=== PATIENT | female | born 1960 | race Caucasian/White ===

== ENCOUNTER → 2016-11-22 | Day surgery (SDC) | payer BC ==
[2016-11-16 08:55] VITALS: Ht 167.6 cm; Wt 121.4 kg
[~2016-11-22] VITALS: Ht 167.6 cm; Wt 121.4 kg
[~2016-11-22] MED LIST: BIOT1CAP8 PO; CETI10TA84 PO; CLB/200 PO; LEVO50TA6 PO; LIDOCAINE HCL 2% 2 ML VIAL (20MG/ML) ONE; LOSA50TA6 PO; MIDAZOLAM HCL 1 MG/ML 2ML VIAL ONE; MONT1TAB3 PO; ONDANSETRON INJ 2 MG/ML 2 ML VIAL ONE; OXYC1TAB3 PO; PROPOFOL IV EMULSION 10 MG/ML 20 ML VIAL IV ONE; RABE20TA5 PO; ROPI0.25 PO; SALI1SPR3 NAE; SIMV10TA2 PO; SPIR25TA PO
--- NOTE | 2016-11-22 11:28 | Endo History and Physical ---
History & Physical Date of Service: Nov 22, 2016. Chief Complaint: reflux Referring Physician: Dr. Isak Bruce History of Present Illness 56 yo CF who presents for EGD secondary to GERD. Past Medical History Sleep Apnea Past Surgical History Hx Cardiac Surgery: No Hx Internal Defibrillator: No Hx Pacemaker: No Hx Abdominal Surgery: Yes (APPY) Hx of Implantable Prosthesis: No Hx Post-Op Nausea and Vomiting: No Hx Cancer Surgery: Yes (ABDOMINAL EXPLOR SURGERY (LYMPOMA)) Hx Thoracic Surgery: No Hx Orthopedic: No Hx Urinary Tract Surgery: No Family History None Social History Smoking Status: Never Smoker Hx Substance Use: No Hx Alcohol Use: No Allergies Coded Allergies: Statins (Verified Adverse Reaction, Unknown, muscle pains, 11/16/16) Current Medications Reported Home Medications Medications Dose Route/Sig Max Daily Dose Days Date Category Saline Nasal [place] (Saline) 0.65 % Spr 1 Dose ТАТЬЯНА DIRECTED PRN 11/16/16 Reported Biotin 1 Mg Cap 1 Dose PO QAM 11/16/16 Reported Roxicodone Ir (Oxycodone HCl) 5 Mg Tab 5 Mg PO Q6H PRN 11/16/16 Reported Zocor (Simvastatin) 10 Mg Tab 10 Mg PO QPM 11/16/16 Reported Requip (Ropinirole HCl) 0.25 Mg Tab 2-3 Tab PO HS 11/16/16 Reported Aciphex (Rabeprazole Sodium) 20 Mg Tab 20 Mg PO BID 11/16/16 Reported Levothyroxine Sodium 50 Mcg Tab 1 Tab PO QAM 90 11/16/16 Reported Cozaar (Losartan Potassium) 50 Mg Tab 50 Mg PO QAM 11/16/16 Reported Singulair (Montelukast Sodium) 10 Mg Tab 10 Mg PO QAM 11/16/16 Reported Zyrtec (Cetirizine HCl) 10 Mg Tab 10 Mg PO QAM 11/16/16 Reported CeleBREX (Celecoxib) 200 Mg Cap 200 Mg PO QAM 11/16/16 Reported Aldactone (Spironolactone) 25 Mg Tab 25 Mg PO QAM 11/16/16 Reported Vital Signs Weight (Kilograms): 121.36 Height (Feet): 5 Height (Inches): 6 Date Time Temp Pulse Resp B/P Pulse Ox O2 Delivery O2 Flow Rate FiO2 11/22/16 10:58 37.1 99 18 151/91 94 Room Air Physical Exam General Appearance: WD/WN, no apparent distress Respiratory/Chest: Auscultation: breath sounds normal Cardiovascular: Heart Auscultation: RRR Abdomen: Bowel Sounds: normal Inspection & Palpation: soft, non-distended, no tenderness, guarding & rebound Assessment and Plan Assessment: 56 yo CF who presents for EGD secondary to GERD. Plan: Proceed with EGD.
--- NOTE | 2016-11-22 12:06 | GI REPORT ---
Procedure Date: 11/22/2016 11:33 AM Procedure: Upper GI endoscopy Indications: Gastro-esophageal reflux disease Medicines: Monitored Anesthesia Care Complications: No immediate complications. Estimated Blood Loss: Estimated blood loss: none. Procedure: Pre-Anesthesia Assessment: - Prior to the procedure, a History and Physical was performed, and patient medications and allergies were reviewed. The patient's tolerance of previous anesthesia was also reviewed. The risks and benefits of the procedure and the sedation options and risks were discussed with the patient. All questions were answered, and informed consent was obtained. Prior Anticoagulants: The patient has taken no previous anticoagulant or antiplatelet agents. ASA Grade Assessment: III - A patient with severe systemic disease. After reviewing the risks and benefits, the patient was deemed in satisfactory condition to undergo the procedure. After obtaining informed consent, the endoscope was passed under direct vision. Throughout the procedure, the patient's blood pressure, pulse, and oxygen saturations were monitored continuously. The scope was introduced through the mouth, and advanced to the second part of duodenum. The upper GI endoscopy was accomplished without difficulty. The patient tolerated the procedure well. Findings: The esophagus was normal. Localized mild inflammation characterized by erythema was found in the gastric antrum. Biopsies were taken with a cold forceps for histology. The examined duodenum was normal. Impression: - Normal esophagus. - Gastritis. Biopsied. - Normal examined duodenum. Recommendation: - Resume previous diet. - Continue present medications. - Await pathology results. - Return to primary care physician as previously scheduled. Jt Stewart DO 11/22/2016 12:05:07 PM This report has been signed electronically. Note Initiated On: 11/22/2016 11:33 AM
--- NOTE | 2016-11-22 12:07 | Discharge Instructions ---
Endoscopy Patient Instructions Date / Procedure(s) Performed Nov 22, 2016. EGD Allergy Information Coded Allergies: Statins (Verified Adverse Reaction, Unknown, muscle pains, 11/22/16) Discharge Date / Findings Nov 22, 2016. Gastritis s/p biopsies Medication Instructions OK to resume all medications today as prescribed Reported Home Medications Medications Dose Route/Sig Max Daily Dose Days Date Category Saline Nasal [place] (Saline) 0.65 % Spr 1 Dose ТАТЬЯНА DIRECTED PRN 11/16/16 Reported Biotin 1 Mg Cap 1 Dose PO QAM 11/16/16 Reported Roxicodone Ir (Oxycodone HCl) 5 Mg Tab 5 Mg PO Q6H PRN 11/16/16 Reported Zocor (Simvastatin) 10 Mg Tab 10 Mg PO QPM 11/16/16 Reported Requip (Ropinirole HCl) 0.25 Mg Tab 2-3 Tab PO HS 11/16/16 Reported Aciphex (Rabeprazole Sodium) 20 Mg Tab 20 Mg PO BID 11/16/16 Reported Levothyroxine Sodium 50 Mcg Tab 1 Tab PO QAM 90 11/16/16 Reported Cozaar (Losartan Potassium) 50 Mg Tab 50 Mg PO QAM 11/16/16 Reported Singulair (Montelukast Sodium) 10 Mg Tab 10 Mg PO QAM 11/16/16 Reported Zyrtec (Cetirizine HCl) 10 Mg Tab 10 Mg PO QAM 11/16/16 Reported CeleBREX (Celecoxib) 200 Mg Cap 200 Mg PO QAM 11/16/16 Reported Aldactone (Spironolactone) 25 Mg Tab 25 Mg PO QAM 11/16/16 Reported Provider Instructions Activity Restrictions - No exercising or heavy lifting for 24 hours. - Do not drink alcohol the day of the procedure. - Do not drive a car or operate machinery until the day after the procedure. - Do not make any important decisions or sign important papers in 24 hours after the procedure. Following Day: - Return to full activity which may include returning to work/school. Diet Start your diet with liquids and light foods (jello, soup, juice, toast). Then eat your usual diet if not nauseated. Treatment For Common After Affects For mild abdominal pain, bloating, or excessive gas: - Rest - Eat lightly - Lie on right side Follow-Up Information Follow-up with Dr. Isak Bruce as scheduled Anesthesia Information What You Should Know You have had a procedure that required some medicine to reduce anxiety and discomfort. This treatment is called moderate sedation. After receiving the treatment, you may be sleepy, but you will be able to breathe on your own. The effects of the treatment may last for several hours. Follow these instructions along with Activity/Diet recommendations noted above: * Do NOT do anything where dizziness or clumsiness would be dangerous. * Rest quietly at home today, then you can be up and about tomorrow. * Have a responsible person stay with you the rest of today. * You may have had an I.V. today. If so, you may take the dressing off later today. Recommendations Call your doctor if: * Trouble breathing * Continuous vomiting for more than 24 hours * Temperature above 101 degrees * Severe abdominal pain or bloating * Pain not relieved by pain medicine ordered * There is increased drainage or redness from any incision * A large amount of rectal bleeding greater than 2-3 tablespoons. (If you had a polyp/s removed or have hemorrhoids, a small amount of blood - from the rectum is to be expected.) * You have any unanswered questions or concerns. IN THE EVENT OF A SERIOUS EMERGENCY, GO TO THE NEAREST EMERGENCY ROOM Your discharge instructions were prepared by provider Jt Stewart. Patient Instructions Signature Page Annette Carrasco Patient (or Guardian) Signature/Date: I have read and understand the instructions given to me by my caregivers. Caregiver/RN/Doctor Signature/Date: The above-named patient and/or guardian has received patient instructions on this date. + Original Patient Signature Page (only) stays with chart. Please make copy for patient.
[2016-11-22 12:39] VITALS: BP 128/72; PULSE 87; O2SAT 97
--- NOTE | 2016-11-22 13:31 | Anesthesiology Progress Note ---
Anesthesia Post Op Note Date & Time Nov 22, 2016 at 13:31 Vital Signs Pain Intensity: 0 Vital Signs Past 12 Hours Date Time Temp Pulse Resp B/P Pulse Ox O2 Delivery O2 Flow Rate FiO2 11/22/16 12:39 87 20 128/72 97 Room Air 11/22/16 12:20 86 20 122/70 95 Room Air 11/22/16 12:04 85 20 120/72 94 Room Air 11/22/16 10:58 37.1 99 18 151/91 94 Room Air Notes Mental Status: alert / awake / arousable, participated in evaluation Pt Amnestic to Procedure: Yes Nausea / Vomiting: adequately controlled Pain: adequately controlled Airway Patency, RR, SpO2: stable & adequate BP & HR: stable & adequate Hydration State: stable & adequate Anesthetic Complications: no major complications apparent
== END | disposition home or self-care (01) ==
LOC: C.GI 10:35
PROVIDERS: ATTEND Internal Medicine
DX: K29.70 Gastritis, unspecified, without bleeding (principal); K21.9 Gastro-esophageal reflux disease without esophagitis; Z98.890 Other specified postprocedural states; G47.30 Sleep apnea, unspecified; Z88.8 Allergy status to other drugs, medicaments and biological substances

== ENCOUNTER → 2016-12-18 | Outpatient (CLI) | payer BC ==
[~2016-12-18] MED LIST changes: -LIDOCAINE HCL 2% 2 ML VIAL (20MG/ML) ONE; -MIDAZOLAM HCL 1 MG/ML 2ML VIAL ONE; -ONDANSETRON INJ 2 MG/ML 2 ML VIAL ONE; -PROPOFOL IV EMULSION 10 MG/ML 20 ML VIAL IV ONE
[2016-12-18 09:50] LABS: BLOOD UREA NITROGEN 21 mg/dl (7-18); CHOLESTEROL 164 mg/dl (0-200); CREATININE 0.88 mg/dl (0.60-1.20)
[2016-12-18 09:59] LABS: ESTIMATED AVERAGE GLUCOSE 143 mg/dl; HA1C FLAG Normal (Normal)
[2016-12-18 10:00] LABS: CHOLESTEROL/HDL RATIO 3.2; HDL CHOLESTEROL 52 mg/dl; LDL CHOLESTEROL CALCULATED 72 mg/dl; TRIGLYCERIDES 198 mg/dl (0-150); VERY LOW DENSITY LIPOPROT CALC 40 mg/dl
== END | disposition home or self-care (01) ==
LOC: C.LAB1850 07:24
PROVIDERS: ATTEND Internal Medicine
DX: E11.9 Type 2 diabetes mellitus without complications (principal); E03.9 Hypothyroidism, unspecified; E78.00 Pure hypercholesterolemia, unspecified

== ENCOUNTER → 2016-12-20 | Outpatient (CLI) | payer BC ==
[~2016-12-20] MED LIST changes: +OPTIRAY 320 IV PRN
--- NOTE | 2016-12-20 09:08 | DIAGNOSTIC IMAGING REPORT ---
SOFT TISSUE NECK CT WITH INTRAVENOUS CONTRAST HISTORY: Choking sensation. R68.89 Throat symptom TECHNIQUE: Multiaxial CT images of the neck were performed following the use of intravenous contrast. COMPARISON STUDY: None. FINDINGS: The visualized brain parenchyma and orbits are unremarkable. The pterygopalatine fossa are maintained. Prevertebral soft tissues and the epiglottis are normal in thickness. There are few punctate calcifications within the bilateral palatine tonsils. The major mucosal airway surfaces are intact. The trachea is patent. No pneumothorax. The visualized lungs are clear. No suspicious lytic or blastic osseous lesions. The paranasal sinuses and mastoid air cells are clear. The major cervical vessels are patent. The thyroid gland enhances normally. No cervical lymphadenopathy. The major salivary glands enhance symmetrically. Moderate to severe disc space narrowing from C4 through C7. IMPRESSION: 1. The airway is patent. No masses or lymphadenopathy within the neck. 2. Degenerative changes within the cervical spine. Electronically signed by: Hammad Disla M.D. 12/20/2016 9:07 AM Dictated Date/Time: 12/20/2016 9:01 AM
== END | disposition home or self-care (01) ==
LOC: C.CTS 08:18
PROVIDERS: ATTEND Internal Medicine
DX: R68.89 Other general symptoms and signs (principal)

== ENCOUNTER → 2017-03-02 | Outpatient (CLI) | payer BC ==
[~2017-03-02] MED LIST changes: +ASTN; +ATRIN INH; +CHLOTAB3 PO; +IBUP-103 PO; +LEVO75TA5 PO; +METF500T PO; +NAPR1TAB9 PO; -OPTIRAY 320 IV PRN; +PSEU60TA80 PO; +SPIR1TAB72 PO; +SUMA25TA12 PO; +TYLOTC500 PO; +VERAMYST INTNAS
== END | disposition home or self-care (01) ==
LOC: C.PAPS 12:31
PROVIDERS: ATTEND Obstetrics & Gynecology
DX: Z01.419 Encounter for gynecological examination (general) (routine) without abnormal findings (principal); Z78.0 Asymptomatic menopausal state

== ENCOUNTER → 2017-04-25 | Outpatient (CLI) | payer BC ==
--- NOTE | 2017-04-25 14:47 | MAMMOGRAPHY REPORT ---
BILATERAL DIGITAL SCREENING MAMMOGRAM TOMOSYNTHESIS WITH CAD: 04/25/2017 CLINICAL HISTORY: Routine screening. Patient has no complaints. TECHNIQUE: Breast tomosynthesis in addition to standard 2D mammography was performed. Current study was also evaluated with a Computer Aided Detection (CAD) system. COMPARISON: Comparison is made to exams dated: 03/28/2016 mammogram, 03/26/2015 mammogram, 09/25/2014 ultrasound, 09/25/2014 mammogram, 09/08/2014 mammogram, and 08/28/2013 mammogram - [facility] BREAST COMPOSITION: The tissue of both breasts is almost entirely fatty. FINDINGS: No suspicious masses, calcifications, or areas of architectural distortion are noted in ei ther breast. There has been no significant interval change compared to prior exams. IMPRESSION: ACR BI-RADS CATEGORY 1: NEGATIVE There is no mammographic evidence of malignancy. A 1 year screening mammogram is recommended. The pa tient will receive written notification of the results. Approximately 10% of breast cancers are not detected with mammography. A negative mammographic report should not delay biopsy if a clinically suggestive mass is present. Maritza Stauffer M.D. /:04/25/2017 07:54:51 Design Consultant: Soco MARKS(Tyrese)(M), [facility] letter sent: Normal 1/2 BI-RADS Code: ACR BI-RADS Category 1: Negative
== END | disposition home or self-care (01) ==
LOC: C.MAMM 07:13
PROVIDERS: ATTEND Obstetrics & Gynecology
DX: Z12.31 Encounter for screening mammogram for malignant neoplasm of breast (principal)

== ENCOUNTER → 2017-04-26 | Day surgery (SDC) | payer BC ==
[2017-04-16 11:55] VITALS: Ht 167.6 cm; Wt 121.4 kg
[~2017-04-26] VITALS: Ht 167.6 cm; Wt 121.4 kg
[~2017-04-26] MED LIST changes: +FENTANYL CITRATE INJ 50 MCG/1 ML 2 ML VIAL ONE; +LIDOCAINE HCL 2% 2 ML VIAL (20MG/ML) ONE; +PROPOFOL IV EMULSION 10 MG/ML 20 ML VIAL IV ONE
--- NOTE | 2017-04-26 12:04 | Endo History and Physical ---
History & Physical Date of Service: Apr 26, 2017. Chief Complaint: screening Referring Physician: Dr. Isak Bruce History of Present Illness 56 yo CF who presents for screening colonoscopy. Past Medical History Sleep Apnea Past Surgical History Hx Cardiac Surgery: No Hx Internal Defibrillator: No Hx Pacemaker: No Hx Abdominal Surgery: Yes (APPY) Hx of Implantable Prosthesis: No Hx Post-Op Nausea and Vomiting: No Hx Cancer Surgery: Yes (ABDOMINAL EXPLORATORY (LYMPHOMA)) Hx Thoracic Surgery: No Hx Orthopedic: No Hx Urinary Tract Surgery: No Family History None Social History Smoking Status: Never Smoker Hx Substance Use: No Hx Alcohol Use: No Allergies Coded Allergies: Statins (Verified Adverse Reaction, Unknown, muscle pains, 04/16/17) Current Medications Reported Home Medications Medications Dose Route/Sig Max Daily Dose Days Date Category Saline Nasal [place] (Saline) 0.65 % Spr 1 Dose ТАТЬЯНА DIRECTED PRN 11/16/16 Reported Biotin 1 Mg Cap 1 Dose PO QAM 11/16/16 Reported Roxicodone Ir (Oxycodone HCl) 5 Mg Tab 5 Mg PO Q6H PRN 11/16/16 Reported Zocor (Simvastatin) 10 Mg Tab 10 Mg PO QPM 11/16/16 Reported Requip (Ropinirole HCl) 0.25 Mg Tab 2-3 Tab PO HS 11/16/16 Reported Aciphex (Rabeprazole Sodium) 20 Mg Tab 20 Mg PO BID 11/16/16 Reported Levothyroxine Sodium 50 Mcg Tab 1 Tab PO QAM 90 11/16/16 Reported Cozaar (Losartan Potassium) 50 Mg Tab 50 Mg PO QAM 11/16/16 Reported Singulair (Montelukast Sodium) 10 Mg Tab 10 Mg PO QAM 11/16/16 Reported Zyrtec (Cetirizine HCl) 10 Mg Tab 10 Mg PO QAM 11/16/16 Reported CeleBREX (Celecoxib) 200 Mg Cap 200 Mg PO QAM 11/16/16 Reported Aldactone (Spironolactone) 25 Mg Tab 25 Mg PO QAM 11/16/16 Reported Vital Signs Weight (Kilograms): 121.36 Height (Feet): 5 Height (Inches): 6 Date Time Temp Pulse Resp B/P (MAP) Pulse Ox O2 Delivery O2 Flow Rate FiO2 04/26/17 11:54 37.5 99 20 138/92 (107) 95 Room Air Physical Exam General Appearance: WD/WN, no apparent distress Respiratory/Chest: Auscultation: breath sounds normal Cardiovascular: Heart Auscultation: RRR Abdomen: Bowel Sounds: normal Inspection & Palpation: soft, non-distended, no tenderness, guarding & rebound Assessment and Plan Assessment: 56 yo CF who presents for screening colonoscopy. Plan: Proceed with colonoscopy.
--- NOTE | 2017-04-26 13:03 | GI REPORT ---
Procedure Date: 04/26/2017 12:28 PM Procedure: Colonoscopy Indications: Screening for colorectal malignant neoplasm Medicines: Monitored Anesthesia Care Complications: No immediate complications. Estimated Blood Loss: Estimated blood loss: none. Procedure: Pre-Anesthesia Assessment: - Prior to the procedure, a History and Physical was performed, and patient medications and allergies were reviewed. The patient's tolerance of previous anesthesia was also reviewed. The risks and benefits of the procedure and the sedation options and risks were discussed with the patient. All questions were answered, and informed consent was obtained. Prior Anticoagulants: The patient has taken no previous anticoagulant or antiplatelet agents. ASA Grade Assessment: III - A patient with severe systemic disease. After reviewing the risks and benefits, the patient was deemed in satisfactory condition to undergo the procedure. After I obtained informed consent, the scope was passed under direct vision. Throughout the procedure, the patient's blood pressure, pulse, and oxygen saturations were monitored continuously. The Scope was introduced through the anus and advanced to the terminal ileum. The colonoscopy was performed without difficulty. The patient tolerated the procedure well. The quality of the bowel preparation was good. The terminal ileum, ileocecal valve, appendiceal orifice, and rectum were photographed. Findings: Multiple small-mouthed diverticula were found in the sigmoid colon. Non-bleeding internal hemorrhoids were found during retroflexion. The hemorrhoids were small. Impression: - Diverticulosis in the sigmoid colon. - Non-bleeding internal hemorrhoids. - No specimens collected. Recommendation: - Resume previous diet. - Continue present medications. - Repeat colonoscopy in 10 years for surveillance. - Return to primary care physician as previously scheduled. Jt Stewart, 04/26/2017 1:02:22 PM This report has been signed electronically. Note Initiated On: 04/26/2017 12:28 PM I attest to the content of the Intraoperative Record and orders documented therein, exceptions below
[2017-04-26 13:20] VITALS: BP 132/83; PULSE 89; O2SAT 95
--- NOTE | 2017-04-26 13:49 | Discharge Instructions ---
Endoscopy Patient Instructions Date / Procedure(s) Performed Apr 26, 2017. Colonoscopy Allergy Information Coded Allergies: Statins (Verified Adverse Reaction, Unknown, muscle pains, 04/16/17) Discharge Date / Findings Apr 26, 2017. Diverticulosis Internal hemorrhoids Diverticulosis Internal hemorrhoids Medication Instructions OK to resume all medications today as prescribed Reported Home Medications Medications Dose Route/Sig Max Daily Dose Days Date Category Saline Nasal [place] (Saline) 0.65 % Spr 1 Dose ТАТЬЯНА DIRECTED PRN 11/16/16 Reported Biotin 1 Mg Cap 1 Dose PO QAM 11/16/16 Reported Roxicodone Ir (Oxycodone HCl) 5 Mg Tab 5 Mg PO Q6H PRN 11/16/16 Reported Zocor (Simvastatin) 10 Mg Tab 10 Mg PO QPM 11/16/16 Reported Requip (Ropinirole HCl) 0.25 Mg Tab 2-3 Tab PO HS 11/16/16 Reported Aciphex (Rabeprazole Sodium) 20 Mg Tab 20 Mg PO BID 11/16/16 Reported Levothyroxine Sodium 50 Mcg Tab 1 Tab PO QAM 90 11/16/16 Reported Cozaar (Losartan Potassium) 50 Mg Tab 50 Mg PO QAM 11/16/16 Reported Singulair (Montelukast Sodium) 10 Mg Tab 10 Mg PO QAM 11/16/16 Reported Zyrtec (Cetirizine HCl) 10 Mg Tab 10 Mg PO QAM 11/16/16 Reported CeleBREX (Celecoxib) 200 Mg Cap 200 Mg PO QAM 11/16/16 Reported Aldactone (Spironolactone) 25 Mg Tab 25 Mg PO QAM 11/16/16 Reported Provider Instructions Activity Restrictions - No exercising or heavy lifting for 24 hours. - Do not drink alcohol the day of the procedure. - Do not drive a car or operate machinery until the day after the procedure. - Do not make any important decisions or sign important papers in 24 hours after the procedure. Following Day: - Return to full activity which may include returning to work/school. Diet Start your diet with liquids and light foods (jello, soup, juice, toast). Then eat your usual diet if not nauseated. Treatment For Common After Affects For mild abdominal pain, bloating, or excessive gas: - Rest - Eat lightly - Lie on right side Follow-Up Information Follow-up with Dr. Isak Bruce as scheduled Anesthesia Information What You Should Know You have had a procedure that required some medicine to reduce anxiety and discomfort. This treatment is called moderate sedation. After receiving the treatment, you may be sleepy, but you will be able to breathe on your own. The effects of the treatment may last for several hours. Follow these instructions along with Activity/Diet recommendations noted above: * Do NOT do anything where dizziness or clumsiness would be dangerous. * Rest quietly at home today, then you can be up and about tomorrow. * Have a responsible person stay with you the rest of today. * You may have had an I.V. today. If so, you may take the dressing off later today. Recommendations Call your doctor if: * Trouble breathing * Continuous vomiting for more than 24 hours * Temperature above 101 degrees * Severe abdominal pain or bloating * Pain not relieved by pain medicine ordered * There is increased drainage or redness from any incision * A large amount of rectal bleeding greater than 2-3 tablespoons. (If you had a polyp/s removed or have hemorrhoids, a small amount of blood - from the rectum is to be expected.) * You have any unanswered questions or concerns. IN THE EVENT OF A SERIOUS EMERGENCY, GO TO THE NEAREST EMERGENCY ROOM Your discharge instructions were prepared by provider Jt Stewart. Patient Instructions Signature Page Annette Carrasco Patient (or Guardian) Signature/Date: I have read and understand the instructions given to me by my caregivers. Caregiver/RN/Doctor Signature/Date: The above-named patient and/or guardian has received patient instructions on this date. + Original Patient Signature Page (only) stays with chart. Please make copy for patient.
--- NOTE | 2017-04-26 14:35 | Anesthesiology Progress Note ---
Anesthesia Post Op Note Date & Time Apr 26, 2017 at 14:35 Vital Signs Pain Intensity: 0 Vital Signs Past 12 Hours Date Time Temp Pulse Resp B/P (MAP) Pulse Ox O2 Delivery O2 Flow Rate FiO2 04/26/17 13:20 89 16 132/83 (99) 95 Room Air 04/26/17 13:04 89 16 127/75 (92) 95 Room Air 04/26/17 12:48 89 16 127/75 (92) 96 Room Air 04/26/17 11:54 37.5 99 20 138/92 (107) 95 Room Air Notes Mental Status: alert / awake / arousable, participated in evaluation Pt Amnestic to Procedure: Yes Nausea / Vomiting: adequately controlled Pain: adequately controlled Airway Patency, RR, SpO2: stable & adequate BP & HR: stable & adequate Hydration State: stable & adequate Anesthetic Complications: no major complications apparent
== END | disposition home or self-care (01) ==
LOC: C.GI 11:27
PROVIDERS: ATTEND Internal Medicine
DX: Z12.11 Encounter for screening for malignant neoplasm of colon (principal); K57.30 Diverticulosis of large intestine without perforation or abscess without bleeding; K64.8 Other hemorrhoids; G47.30 Sleep apnea, unspecified; Z79.899 Other long term (current) drug therapy

== ENCOUNTER → 2017-05-14 | Outpatient (CLI) | payer BC ==
[~2017-05-14] MED LIST changes: -ASTN; -ATRIN INH; -CHLOTAB3 PO; -FENTANYL CITRATE INJ 50 MCG/1 ML 2 ML VIAL ONE; -IBUP-103 PO; -LEVO75TA5 PO; -LIDOCAINE HCL 2% 2 ML VIAL (20MG/ML) ONE; -METF500T PO; -NAPR1TAB9 PO; -PROPOFOL IV EMULSION 10 MG/ML 20 ML VIAL IV ONE; -PSEU60TA80 PO; -SPIR1TAB72 PO; -SUMA25TA12 PO; -TYLOTC500 PO; -VERAMYST INTNAS
[2017-05-14 09:47] LABS: BASO % 0.2 %; BASO ABS # 0.02 K/uL (0-0.2); COMPLETE YES; HEMATOCRIT 40.2 % (37-47); IG% 0.3 %; LYMPH % 16.3 %; MEAN CORPUSCULAR HEMOGLOBIN 29.5 pg (25-34); MEAN CORPUSCULAR HGB CONC 33.6 g/dl (32-36); MONO % 6.9 %; NEUT % 74.3 %; PLATELET COUNT 273 K/uL (130-400); RED BLOOD COUNT 4.57 M/uL (4.2-5.4); WHITE BLOOD COUNT 9.84 K/uL (4.8-10.8)
[2017-05-14 09:49] LABS: URINE APPEARANCE CLEAR (CLEAR); URINE BILIRUBIN NEG (NEG); URINE COLOR YELLOW; URINE EPITHELIAL CELL AUTO >30 /lpf (0-5); URINE NITRITE NEG (NEG); URINE SPECIFIC GRAVITY 1.015 (1.000-1.030); UROBILINOGEN NEG (NEG); ZZUR CULT IF INDIC CLEAN CATCH YES
[2017-05-14 09:55] LABS: ALT/SGPT 39 U/L (12-78); AST/SGOT 28 U/L (15-37); BLOOD UREA NITROGEN 17 mg/dl (7-18); BUN/CREATININE RATIO 17.2 (10-20); CALCIUM 9.4 mg/dl (8.5-10.1); CARBON DIOXIDE 32 mmol/L (21-32); CHLORIDE 101 mmol/L (98-107); CREATININE 0.97 mg/dl (0.60-1.20); GLUCOSE 146 mg/dl (70-99); POTASSIUM 3.3 mmol/L (3.5-5.1); SODIUM 137 mmol/L (136-145)
[2017-05-14 10:00] LABS: ESTIMATED AVERAGE GLUCOSE 157 mg/dl; HA1C FLAG Normal (Normal)
[2017-05-14 10:03] LABS: MANUAL MICROSCOPIC REQUIRED? NO; REVIEW REQ? NO
[2017-05-14 10:06] LABS: ALB/GLOB RATIO 1.2 (0.9-2); ALKALINE PHOSPHATASE 70 U/L (45-117)
[2017-05-14 10:32] LABS: RATIO 8.9 mcg/mg (0-30.0)
== END | disposition home or self-care (01) ==
LOC: C.LAB1850 08:01
PROVIDERS: ATTEND Internal Medicine
DX: E11.9 Type 2 diabetes mellitus without complications (principal); E03.9 Hypothyroidism, unspecified; E78.00 Pure hypercholesterolemia, unspecified; C85.90 Non-Hodgkin lymphoma, unspecified, unspecified site; I10 Essential (primary) hypertension

== ENCOUNTER → 2017-06-08 | Outpatient (CLI) | payer BC ==
[~2017-06-08] MED LIST changes: +OPTIRAY 320 IV PRN
--- NOTE | 2017-06-08 08:56 | DIAGNOSTIC IMAGING REPORT ---
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 TECHNIQUE: Multidetector CT imaging of the chest was performed after the administration of intravenous contrast. IV contrast: 93 mL of Optiray 320. A dose lowering technique was used consistent with the principles of ALARA (as low as reasonably achievable). COMPARISON: 12/17/2012. CT DOSE (mGy.cm): The estimated cumulative dose is 3122.89 mGy.cm. FINDINGS: Evaluation limited due to exclusion of the lung bases. Please see separate dictated CT of the abdomen and pelvis for findings at the lung bases. [id number] Programmer topogram: Unremarkable. On soft tissue windows, normal thyroid and thoracic inlet. No axillary, supraclavicular, hilar, or mediastinal lymphadenopathy. Normal aorta. Normal heart size. Minimal aortic valve calcification. No pericardial or pleural effusion. Suggestion of hepatic steatosis. On lung windows, no focal infiltrate or nodule. Airways patent. On bone windows, degenerative changes of the spine. IMPRESSION: 1. No evidence of intrathoracic lymphadenopathy. No intrathoracic pathology. Electronically signed by: Karthikeyan Cabrera M.D. 06/08/2017 8:54 AM Dictated Date/Time: 06/08/2017 8:50 AM
--- NOTE | 2017-06-08 09:01 | DIAGNOSTIC IMAGING REPORT ---
CT SCAN OF THE ABDOMEN AND PELVIS WITH IV CONTRAST CLINICAL HISTORY: Non-Hodgkin's lymphoma. COMPARISON STUDY: Abdominal CT dated 08/11/2015. TECHNIQUE: Following the IV administration of 93 cc of Optiray 320, CT scan of the abdomen and pelvis is performed from the lung bases to the proximal femora. Images are reviewed in the axial, sagittal, and coronal planes. IV contrast was administered without complication. Automated dose control exposure was utilized. A dose lowering technique was utilized adhering to the principles of ALARA. FINDINGS: Lung bases: The heart is normal in size and without pericardial effusion. The lung bases are clear. There is a small hiatal hernia. Liver: The contrast-enhanced liver is enlarged, measuring 21.2 cm in length. The liver demonstrates diffusely diminished attenuation consistent with hepatic steatosis. There is no intrahepatic biliary ductal dilatation. The hepatic veins and portal veins are patent. Gallbladder: Unremarkable. Spleen: Normal in size and attenuation measuring 12 cm in length. Pancreas: Unremarkable. Adrenal glands: Unremarkable. Kidneys: The contrast enhanced kidneys demonstrate mild cortical atrophy and are without hydronephrosis. The kidneys enhance symmetrically. An 11 mm cyst is noted in the right lower pole. Abdominal vasculature: The abdominal aorta is normal in course and caliber noting mild atherosclerotic calcification. Bowel: The small bowel and colon are normal in course and caliber. There are scattered colonic diverticula without CT evidence of acute diverticulitis. Colonic fecal retention is observed. The appendix is not identified and reported surgically absent. Peritoneum: There is no intraperitoneal free air or abdominal ascites. Lymphadenopathy: There are numerous prominent retroperitoneal and mesenteric lymph nodes measuring up to 10 mm in short axis. Percent of nodes are seen on axial images #178, #202, and #210. Pelvic viscera: The bladder is normal as visualized. The endometrium appears thickened for age. No adnexal lesion is seen. Skeletal structures: The skeletal structures are osteopenic. There is mild lumbosacral spondylosis. Sclerotic change is seen in the sacral iliac joints. There is a hemitransitional right lumbosacral segment. A small bone island is incidentally noted in the medial right ilium. No lytic or blastic lesions are seen. IMPRESSION: 1. There are numerous prominent mesenteric and retroperitoneal lymph nodes measuring up to 10 mm in short axis. These are nonspecific and only slightly more conspicuous than on the 08/11/2015 examination. 2. The spleen is normal in size. 3. Hepatomegaly and hepatic steatosis. 4. The endometrium appears thickened for age. Follow-up with a pelvic ultrasound and gynecology assessment is recommended. 5. Additional findings as above. Electronically signed by: Rivas Scott M.D. 06/08/2017 8:59 AM Dictated Date/Time: 06/08/2017 8:51 AM
== END | disposition home or self-care (01) ==
LOC: C.CTS 07:55
PROVIDERS: ATTEND Internal Medicine
DX: C85.90 Non-Hodgkin lymphoma, unspecified, unspecified site (principal); K76.0 Fatty (change of) liver, not elsewhere classified

== ENCOUNTER → 2017-07-23 | Outpatient (CLI) | payer BC ==
[~2017-07-23] MED LIST changes: -OPTIRAY 320 IV PRN
[2017-07-23 10:06] LABS: THYROID STIMULATING HORMONE 1.8 uIu/ml (0.300-4.500)
== END | disposition home or self-care (01) ==
LOC: C.LAB1850 07:23
PROVIDERS: ATTEND Internal Medicine
DX: E03.9 Hypothyroidism, unspecified (principal); E55.9 Vitamin D deficiency, unspecified

== ENCOUNTER 2017-10-05 07:34 | Day surgery (SDC) | payer BC ==
[2017-09-11 09:29] VITALS: BMI 46.0
--- NOTE | 2017-09-11 10:13 | PAT Medication Instructions ---
Service Date Sep 11, 2017. Current Home Medication List Acetaminophen (Tylenol), 1,000 MG PO PRN Azelastine Hcl (Astelin Nasal [place]), 1-2 SPRAYS NA BID PRN for PRN Biotin (Biotin), 1 DOSE PO PRN Celecoxib (CeleBREX), 200 MG PO QAM Cetirizine (Zyrtec), 10 MG PO QAM Chlorzoxazone (Parafon Forte Dsc), 500 MG PO Q4H PRN for RN Hctz/Spironolactone (Spironolactone/Hydrochlor 25-25 mg), 1 TAB PO QAM Ibuprofen Tab (Advil), 800 MG PO PRN Ipratropium [place] (Atrovent Hfa), 2 PUFFS INH QID Levothyroxine Sodium (Levothyroxine Sodium), 1 TAB PO QAM Montelukast Sodium (Singulair), 10 MG PO QAM Naproxen (Aleve), 440 MG PO PRN Oxycodone Ir (Roxicodone Ir), 5 MG PO Q6H PRN for Pain Pseudoephedrine-Guaifenesin (Mucinex D), 1 TAB PO PRN Rabeprazole Sodium (Aciphex), 20 MG PO BID Ropinirole (Requip), 2-3 TAB PO HS Saline (Saline Nasal [place]), 1 DOSE Т[place] DIRECTED PRN for PRN Simvastatin (Zocor), 10 MG PO QPM Sumatriptan Succinate (Imitrex), 25 MG PO PRN PRN for UD [Veramyst], 2 SPRAYS INTNAS PRN Medication Instructions For Your Scheduled Surgery - Ask your surgeon for instructions for: Celecoxib (CeleBREX), 200 MG PO QAM Ibuprofen Tab (Advil), 800 MG PO PRN Naproxen (Aleve), 440 MG PO PRN - Hold the following medications the night before surgery: Ropinirole (Requip), 2-3 TAB PO HS - Hold the following medications the morning of surgery: Pseudoephedrine-Guaifenesin (Mucinex D), 1 TAB PO PRN Biotin (Biotin), 1 DOSE PO PRN Cetirizine (Zyrtec), 10 MG PO QAM Hctz/Spironolactone (Spironolactone/Hydrochlor 25-25 mg), 1 TAB PO QAM Chlorzoxazone (Parafon Forte Dsc), 500 MG PO Q4H PRN for RN - Take the following medications the morning of surgery with a sip of water: [Veramyst], 2 SPRAYS INTNAS PRN (if needed) Sumatriptan Succinate (Imitrex), 25 MG PO PRN PRN for UD (if needed) Levothyroxine Sodium (Levothyroxine Sodium), 1 TAB PO QAM Montelukast Sodium (Singulair), 10 MG PO QAM Saline (Saline Nasal [place]), 1 DOSE Т[place] DIRECTED PRN for PRN (if needed) Oxycodone Ir (Roxicodone Ir), 5 MG PO Q6H PRN for Pain (if needed, can be taken up to four hours before surgery) Rabeprazole Sodium (Aciphex), 20 MG PO BID Ipratropium [place] (Atrovent Hfa), 2 PUFFS INH QID Acetaminophen (Tylenol), 1,000 MG PO PRN (if needed, can be taken up to four hours before surgery) Azelastine Hcl (Astelin Nasal [place]), 1-2 SPRAYS NA BID PRN for PRN (if needed) - Take the following medications as scheduled the night before surgery: Simvastatin (Zocor), 10 MG PO QPM Saline (Saline Nasal [place]), 1 DOSE ТАТ[place] DIRECTED PRN for PRN (if needed) Oxycodone Ir (Roxicodone Ir), 5 MG PO Q6H PRN for Pain (if needed) Rabeprazole Sodium (Aciphex), 20 MG PO BID Chlorzoxazone (Parafon Forte Dsc), 500 MG PO Q4H PRN for RN (if needed) Ipratropium [place] (Atrovent Hfa), 2 PUFFS INH QID Azelastine Hcl (Astelin Nasal [place]), 1-2 SPRAYS NA BID PRN for PRN (if needed) If you have any questions please call us at [phone] or [phone] or [phone]
[2017-09-11 11:07] LABS: BASO % 0.2 %; BASO ABS # 0.02 K/uL (0-0.2); COMPLETE YES; EOS % 1.2 %; HEMATOCRIT 43.5 % (37-47); IG% 0.2 %; LYMPH % 15.1 %; LYMPH ABS # 1.33 K/uL (1.2-3.4); MEAN CELL VOLUME 85.8 fL (80-100); MEAN CORPUSCULAR HEMOGLOBIN 28.6 pg (25-34); MEAN CORPUSCULAR HGB CONC 33.3 g/dl (32-36); MEAN PLATELET VOLUME 10.7 fL (7.4-10.4); MONO % 4.8 %; NEUT % 78.5 %; PLATELET COUNT 258 K/uL (130-400); RED BLOOD COUNT 5.07 M/uL (4.2-5.4); WHITE BLOOD COUNT 8.81 K/uL (4.8-10.8)
[2017-09-11 11:18] LABS: BUN/CREATININE RATIO 14.6 (10-20); CALCIUM 10.1 mg/dl (8.5-10.1); CREATININE 0.94 mg/dl (0.60-1.20); POTASSIUM 3.7 mmol/L (3.5-5.1)
[~2017-10-05] VITALS: Ht 165.1 cm; Wt 125.8 kg
[~2017-10-05 07:34] MED LIST changes: +ASTN; +ATRIN INH; +CHLOTAB3 PO; +IBUP-103 PO; +LACTATED RINGER'S 1000ML 1,000 ML IV SCH; -LEVO50TA6 PO; +LEVO75TA5 PO; -LOSA50TA6 PO; +NAPR1TAB9 PO; +PSEU60TA80 PO; +SPIR1TAB72 PO; -SPIR25TA PO; +SUMA25TA12 PO; +TYLOTC500 PO; +VERAMYST INTNAS
[2017-10-05 08:24] VITALS: BP 153/83; PULSE 113; TEMP 38.9; O2SAT 95; Ht 165.1 cm; Wt 125.8 kg
[2017-10-05] MEDS ORDERED: DEXAMETHASONE SOD INJ 4 MG/ML VIAL ONE (08:59)
[2017-10-05] MEDS ORDERED: ONDANSETRON INJ 2 MG/ML 2 ML VIAL ONE (08:59)
[2017-10-05] MEDS ORDERED: ATROPINE SULFATE 0.1 MG/ML 5ML SYR IV PRN (09:00)
[2017-10-05] MEDS ORDERED: MIDAZOLAM HCL 1 MG/ML 2ML VIAL ONE (09:00)
[2017-10-05] MEDS ORDERED: EpHEDrine SULFATE INJ 50 MG/ML AMP IV PRN (09:00)
[2017-10-05] MEDS ORDERED: FENTANYL CITRATE INJ 50 MCG/1 ML 2 ML VIAL ONE ×2 (09:00→10:28)
[2017-10-05] MEDS ORDERED: PROPOFOL IV EMULSION 10 MG/ML 20 ML VIAL IV ONE (09:00)
[2017-10-05] MEDS ORDERED: FENTANYL CITRATE INJ 50 MCG/1 ML 2 ML VIAL IV PRN (09:00)
[2017-10-05] MEDS ORDERED: LABETALOL HCL IV 5 MG/ML 20ML IV PRN (09:00)
[2017-10-05] MEDS ORDERED: ONDANSETRON INJ 2 MG/ML 2 ML VIAL IV PRN (09:00)
[2017-10-05] MEDS ORDERED: MEPERIDINE HCL 25 MG/ML CARP IV PRN (09:00)
[2017-10-05] MEDS ORDERED: HYDROmorphone INJ 0.5 MG/0.5 ML SYR IV PRN (09:00)
--- NOTE | 2017-10-05 09:00 | History & Physical Bridge Note ---
H&P Re-Evaluation Bridge Note: I have examined the patient, reviewed the History & Physical and in the interval since the performance of the History & Physical I have noted the following changes of clinical significance: Patient presented today feeling well. temp checked and 39. Repeat 37.9, my repeat 38.4. patient notes no localizing symptoms. Will check CBC and if WBC reasonable, will proceed. If not will need to consider r/s as this is a nonemergent procedure.
[2017-10-05 09:45] LABS: BASO % 0.3 %; BASO ABS # 0.03 K/uL (0-0.2); EOS % 0.9 %; HEMATOCRIT 40.6 % (37-47); IG% 0.4 %; LYMPH % 12.6 %; LYMPH ABS # 1.24 K/uL (1.2-3.4); MEAN CELL VOLUME 86.6 fL (80-100); MEAN CORPUSCULAR HEMOGLOBIN 29.6 pg (25-34); MEAN PLATELET VOLUME 10.7 fL (7.4-10.4); MONO % 5.4 %; NEUT % 80.4 %; PLATELET COUNT 249 K/uL (130-400); RED BLOOD COUNT 4.69 M/uL (4.2-5.4); WHITE BLOOD COUNT 9.84 K/uL (4.8-10.8)
[2017-10-05 09:50] LABS: COMPLETE YES; MEAN CORPUSCULAR HGB CONC 34.2 g/dl (32-36)
[2017-10-05] MEDS ORDERED: SUCCINYLCHOLINE 100MG/5ML SYR IV ONE (10:34)
[2017-10-05] MEDS ORDERED: LACTATED RINGER'S 1000ML 1,000 ML IV SCH (10:53)
--- NOTE | 2017-10-05 10:53 | [facility] Post Operative Brief Note ---
Immediate Operative Summary Operative Date Oct 05, 2017. Pre-Operative Diagnosis Thickened endometrium with suspected endometrial mass, cervical stenosis Post-Operative Diagnosis Thickened endometrium with suspected endometrial mass, cervical stenosis Procedure(s) Performed Dilation and Currettage, Hysteroscopy, Polypectomy with Myosure Surgeon Dr. Jina Le Booking Agent Surgeon(s) None Estimated Blood Loss 0 mL Findings uterus sounded to 7cm, several polypoid masses noted, em otherwise appeared thin. Fluids (cc crystalloids) 700cc, deficit 70cc Specimens Permanent specimens A: Endometrial polyp B: Endometrial currettings Drains none Anesthesia gett Complication(s) None Disposition Recovery Room / PACU
[2017-10-05] MEDS ORDERED: KETOROLAC TROMETHAMINE 30 MG/ML VIAL ONE (10:58)
[2017-10-05] MEDS ORDERED: OXYCODONE/ACETAMINOPHEN 5-325 TAB PO PRN ×2 (11:00)
[2017-10-05] MEDS ORDERED: MoRPHine SULFATE 4 MG/ML 1 ML CARP\\VIAL IV PRN (11:00)
[2017-10-05] MEDS ORDERED: KETOROLAC TROMETHAMINE 30 MG/ML VIAL IV. PRN ×2 (11:00)
[2017-10-05] MEDS ORDERED: MoRPHine SULFATE 2 MG/ML CARP IV PRN ×2 (11:00)
[2017-10-05] MEDS ORDERED: ACETAMINOPHEN 325 MG TAB PO PRN (11:00)
[2017-10-05] MEDS ORDERED: IBUPROFEN 200 MG TAB PO PRN (11:00)
--- NOTE | 2017-10-05 11:01 | Discharge Instructions ---
Discharge Instructions Date of Service Oct 05, 2017. Visit Reason for Visit: Endometrial Mass Discharge Discharge Diagnosis / Problem: s/p D&C, removal of masses Discharge Goals Goal(s): Specific goals Activity Recommendations Activity Limitations: per Instructions/Follow-up section Anesthesia . Post Anesthesia Instructions: If you have had General Anesthesia or IV Sedation: * Do not drive today. * Resume driving when surgeon permits. * Do not make important decisions or sign legal documents today. * Call surgeon for: 1. Temperature elevations greater than 101 degrees F. 2. Uncontrollable pain. 3. Excessive bleeding. 4. Persistent nausea and vomiting. 5. Medication intolerance (nausea, vomiting or rash). * For nausea and vomiting use only clear liquids such as: tea, soda, bouillon until nausea subsides, then gradually increase diet as tolerated. * If you have any concerns or questions, call your surgeon's office. If physician is unavailable and it is an emergency, call 911 or go to the nearest emergency room. . Instructions / Follow-Up Instructions / Follow-Up ACTIVITY RECOMMENDATIONS: * Avoid tampons, douching, hot tubs, pools, and intercourse until bleeding has stopped. * May shower as usual. * No strenuous activity for 24-48 hours. After 24-48 hours, you may do anything you feel like doing (driving and sports are okay). SPECIAL CARE INSTRUCTIONS: Special Diet: * Mild nausea may occur in the immediate post-operative period. * Take clear liquids such as tea, cola or bouillon until all nausea has subsided; you may then resume your normal diet. Special Care: * Light bleeding and vaginal spotting can last from a few days to 3-4 weeks. Call your doctor if bleeding becomes heavier than the heaviest part of your period. * Check your temperature twice a day for one week. If it goes above 100.4 degrees Fahrenheit (38.0 Celsius), notify your doctor. * Call your doctor's office for an appointment for 6 weeks after your surgery. FOLLOW-UP VISIT: Call your doctor's office for an appointment for 6 weeks after your surgery. Diet Recommendations Recommended Home Diet: no limitations, resume previous diet Procedures Procedures Performed: Dilation and Currettage, Hysteroscopy, Polypectomy with Myosure Pending Studies Studies pending at discharge: no Medical Emergencies . Who to Call and When: Medical Emergencies: If at any time you feel your situation is an emergency, please call 911 immediately. . Non-Emergent Contact Non-Emergency issues call your: Primary Care Provider . . "Provider Documentation" section prepared by Jina Le. .
--- NOTE | 2017-10-05 11:05 | Medical Student: [facility] ---
Immediate Operative Summary Operative Date Oct 05, 2017. Pre-Operative Diagnosis 1 Thickened endometrium with suspected mass. 2 Cervical Stenosis Post-Operative Diagnosis 1 Thickened endometrium with suspected mass. 2 Cervical Stenosis Procedure(s) Performed Dilation and Curettage Hysteroscopy Myosure Polypectomy Surgeon Dr. Jina Le Hearing Dog Trainer Surgeon(s) None Estimated Blood Loss 0 mL Findings Uterus sounded to 7cm. Several polypoid masses. Endometrium appeared thin. Fluids (cc crystalloids) 700cc, Deficit 70cc Specimens Endometrial Polyp Endometrial Curettings Drains None Anesthesia General Anestesia with Endotracheal Tube Complication(s) None Disposition Recovery Room / PACU
--- NOTE | 2017-10-05 11:21 | OPERATIVE REPORT ---
DATE OF OPERATION: 10/05/2017 PREOPERATIVE DIAGNOSES: 1. Thickened endometrium. 2. Suspected endometrial mass. 3. Cervical stenosis. DISCHARGE DIAGNOSIS: Same. PROCEDURE: D&C, hysteroscopy with removal of endometrial mass via MyoSure. SURGEON: Jina Le MD. ANESTHESIA: General per endotracheal tube. ESTIMATED BLOOD LOSS: Zero. FLUIDS: 700 mL of IV fluids with a 70 mL hysteroscopic deficit. INDICATIONS: The patient is a 56-year-old white female who was asymptomatic and had a workup for followup of non-Hodgkin's lymphoma and on CT scan a thickened endometrium was noted. Attempt at SIS was difficult secondary to cervical stenosis, but some fluid was placed into the uterus with the suspicion of some endometrial masses. FINDINGS: Uterus was small and mobile. Adnexa were not palpable. The uterus sounded to 7 cm, several endometrial masses were noted, but the endometrium otherwise appeared thin and atrophic. COMPLICATIONS: None. DRAINS: None. DISPOSITION: To recovery room in stable condition. PROCEDURE: The patient was taken to the operating room where she was identified verbally and by bracelet. She was placed in dorsal supine position where general anesthesia was induced without difficulty. She was then placed in dorsal lithotomy position in [facility] stirrups and prepped and draped in normal sterile fashion. Timeout was held identifying correct patient, procedure and positioning. An exam under anesthesia was performed. Uterus was small and mobile. Adnexa were not palpable secondary to patient's body habitus. Bladder was drained of urine. A weighted speculum was placed in the posterior vagina and the anterior lip of the cervix was grasped with a single tooth tenaculum. Uterus sounded to 7 cm, was dilated to #23 Reyna dilator. The hysteroscope was introduced with the above noted findings. The MyoSure scope was called for was connected, was introduced, the MyoSure device was placed through the scope and the polyps were removed. A curettage was then performed in 365 degrees, the cavity was clean and empty upon discontinuation of the procedure and the procedure was thus terminated. All instruments removed from the vagina. All sponge, lap and needle counts were correct x2. The patient tolerated the procedure well and was taken to recovery room in stable condition. I attest to the content of the Intraoperative Record and any orders documented therein. Any exception s are noted below.
[2017-10-05 11:40] VITALS: BP 149/86; PULSE 97; TEMP 37.5; O2SAT 92
[2017-10-05 12:20] VITALS: BP 157/66; PULSE 99; TEMP 36.6; O2SAT 98
--- NOTE | 2017-10-05 12:26 | Anesthesiology Progress Note ---
Anesthesia Post Op Note Date & Time Oct 05, 2017 at 12:26 Vital Signs Pain Intensity: 0 Vital Signs Past 12 Hours Date Time Temp Pulse Resp B/P (MAP) Pulse Ox O2 Delivery O2 Flow Rate FiO2 10/05/17 11:40 37.5 97 18 149/86 92 Room Air 10/05/17 11:31 36.8 10/05/17 11:27 97 16 10/05/17 11:27 97 16 97 10/05/17 11:25 159/96 10/05/17 11:22 99 16 10/05/17 11:22 99 16 97 10/05/17 11:21 159/96 10/05/17 11:17 98 16 10/05/17 11:17 98 16 93 10/05/17 11:16 166/94 10/05/17 11:12 105 15 10/05/17 11:12 104 15 97 10/05/17 11:11 148/94 10/05/17 11:07 104 15 96 10/05/17 11:07 104 15 10/05/17 11:06 158/96 10/05/17 11:02 106 17 10/05/17 11:02 106 17 95 10/05/17 11:01 158/95 10/05/17 10:57 110 14 10/05/17 10:57 110 14 95 10/05/17 10:56 141/95 10/05/17 10:55 157/94 10/05/17 10:53 181/97 10/05/17 10:52 36.5 104 21 181/97 96 Oxymask 10 10/05/17 08:24 38.9 113 20 153/83 (106) 95 Room Air Notes Mental Status: alert / awake / arousable, participated in evaluation Pt Amnestic to Procedure: Yes Nausea / Vomiting: adequately controlled Pain: adequately controlled Airway Patency, RR, SpO2: stable & adequate BP & HR: stable & adequate Hydration State: stable & adequate Anesthetic Complications: no major complications apparent
== END 2017-10-05 12:38 | disposition home or self-care (01) ==
LOC: C.ACU 07:34
PROVIDERS: ATTEND Obstetrics & Gynecology
DX: N84.0 Polyp of corpus uteri (principal); N85.8 Other specified noninflammatory disorders of uterus; N88.2 Stricture and stenosis of cervix uteri; E11.9 Type 2 diabetes mellitus without complications; I10 Essential (primary) hypertension; E78.00 Pure hypercholesterolemia, unspecified; K21.9 Gastro-esophageal reflux disease without esophagitis; C85.90 Non-Hodgkin lymphoma, unspecified, unspecified site; G25.81 Restless legs syndrome; G47.30 Sleep apnea, unspecified; E03.9 Hypothyroidism, unspecified; E55.9 Vitamin D deficiency, unspecified; M19.90 Unspecified osteoarthritis, unspecified site; Z41.9 Encounter for procedure for purposes other than remedying health state, unspecified; Z79.899 Other long term (current) drug therapy

== ENCOUNTER → 2018-01-22 | Outpatient (CLI) | payer OTHER, BC ==
[~2018-01-22] MED LIST changes: -LACTATED RINGER'S 1000ML 1,000 ML IV SCH
[2018-01-22 09:47] LABS: BLOOD UREA NITROGEN 15 mg/dl (7-18); CALCIUM 9.4 mg/dl (8.5-10.1); CARBON DIOXIDE 30 mmol/L (21-32); GLUCOSE 147 mg/dl (70-99); POTASSIUM 3.3 mmol/L (3.5-5.1); SODIUM 138 mmol/L (136-145)
[2018-01-22 10:00] LABS: HEMOGLOBIN A1C 7.1 % (4.5-5.6)
== END | disposition home or self-care (01) ==
LOC: C.LAB1850 07:36
PROVIDERS: ATTEND Internal Medicine
DX: E11.9 Type 2 diabetes mellitus without complications (principal); E03.9 Hypothyroidism, unspecified

== ENCOUNTER → 2018-03-13 | Outpatient (CLI) | payer OTHER, BC ==
[~2018-03-13] MED LIST changes: +SALI-3 NAE; -SALI1SPR3 NAE
== END | disposition home or self-care (01) ==
LOC: C.PAPS 11:50
PROVIDERS: ATTEND Obstetrics & Gynecology
DX: Z01.419 Encounter for gynecological examination (general) (routine) without abnormal findings (principal)

== ENCOUNTER → 2018-05-22 | Outpatient (CLI) | payer OTHER, BC ==
[~2018-05-22] MED LIST changes: +OXYC-90 PO; -OXYC1TAB3 PO
== END | disposition home or self-care (01) ==
LOC: C.LAB1850 11:27
PROVIDERS: ATTEND Physician Assistant Medical
DX: R30.0 Dysuria (principal); R39.9 Unspecified symptoms and signs involving the genitourinary system

== ENCOUNTER 2024-12-08 05:27 | Inpatient (IN) ==
--- NOTE | 2024-11-06 10:15 | PAT Medication Instructions ---
Medication Instructions Date of Service November 06, 2024 Home Medications Medication Instructions Recorded sumatriptan succinate 25 mg tablet 25 mg PO .COMPLEX PRN Migraine 04/26/23 (Imitrex) Headache #9 tabs cyclobenzaprine 10 mg tablet 10 mg PO TID PRN muscle spasm #90 06/19/23 tabs montelukast 10 mg tablet 10 mg PO QAM #90 tabs 03/04/24 amlodipine 5 mg tablet 5 mg PO QAM #90 tabs 04/07/24 metformin 500 mg tablet 1,000 mg (2 x 500 mg) PO QAM #180 05/05/24 tabs losartan 100 mg tablet 100 mg PO HS #90 tabs 07/01/24 allopurinol 300 mg tablet 300 mg PO QAM #90 tabs 08/27/24 gabapentin 300 mg capsule 600 mg (2 x 300 mg) PO TID #540 09/08/24 caps oxycodone 10 mg tablet 10 mg PO Q6H PRN pain #120 tabs 09/24/24 acetaminophen 325 mg capsule 650 mg PO PRN cetirizine 10 mg tablet (Zyrtec) 10 mg PO QAM sumatriptan succinate 25 mg tablet (Imitrex) 25 mg PO .COMPLEX PRN cyclobenzaprine 10 mg tablet 10 mg PO TID PRN ibuprofen 200 mg tablet 800 mg PO TID PRN montelukast 10 mg tablet 10 mg PO QAM amlodipine 5 mg tablet 5 mg PO QAM metformin 500 mg tablet 1,000 mg (2 x 500 mg) PO QAM losartan 100 mg tablet 100 mg PO HS allopurinol 300 mg tablet 300 mg PO QAM gabapentin 300 mg capsule 600 mg (2 x 300 mg) PO TID oxycodone 10 mg tablet 10 mg PO Q6H PRN amitriptyline 25 mg tablet 25 mg PO HS dapagliflozin propanediol 10 mg tablet 10 mg PO QAM duloxetine 60 mg capsule,delayed release 60 mg PO HS ezetimibe 10 mg tablet (Zetia) 10 mg PO HS rabeprazole 20 mg tablet,delayed release (AcipHex) 20 mg PO HS ropinirole 0.25 mg tablet 0.25 mg PO UD spironolactone 25 mg-hydrochlorothiazide 25 mg tablet 1 tab PO QAM thyroid (pork) 60 mg tablet 60 mg PO HS STOP 3 days before surgery dapagliflozin propanediol 10 mg tablet 10 mg PO QAM Continue as directed acetaminophen 325 mg capsule 650 mg PO PRN(if needed) sumatriptan succinate 25 mg tablet (Imitrex) 25 mg PO .COMPLEX PRN(if needed) ropinirole 0.25 mg tablet 0.25 mg PO UD ASK your surgeon for instructions ibuprofen 200 mg tablet 800 mg PO TID PRN DO NOT take the morning of surgery cetirizine 10 mg tablet (Zyrtec) 10 mg PO QAM metformin 500 mg tablet 1,000 mg (2 x 500 mg) PO QAM spironolactone 25 mg-hydrochlorothiazide 25 mg tablet 1 tab PO QAM Take morning of surgery With a small sip of water, OTHERWISE NOTHING TO EAT OR DRINK AFTER MIDNIGHT: cyclobenzaprine 10 mg tablet 10 mg PO TID PRN(if needed) montelukast 10 mg tablet 10 mg PO QAM amlodipine 5 mg tablet 5 mg PO QAM allopurinol 300 mg tablet 300 mg PO QAM gabapentin 300 mg capsule 600 mg (2 x 300 mg) PO TID oxycodone 10 mg tablet 10 mg PO Q6H PRN(if needed) Take evening before surgery cyclobenzaprine 10 mg tablet 10 mg PO TID PRN(if needed) losartan 100 mg tablet 100 mg PO HS gabapentin 300 mg capsule 600 mg (2 x 300 mg) PO TID oxycodone 10 mg tablet 10 mg PO Q6H PRN(if needed) amitriptyline 25 mg tablet 25 mg PO HS duloxetine 60 mg capsule,delayed release 60 mg PO HS ezetimibe 10 mg tablet (Zetia) 10 mg PO HS rabeprazole 20 mg tablet,delayed release (AcipHex) 20 mg PO HS thyroid (pork) 60 mg tablet 60 mg PO HS Other Notes If you have any questions please call us at [phone] or [phone] or [phone] or [phone]
--- NOTE | 2024-11-17 13:06 | Anesthesiology Consultation ---
Date of Service November 17, 2024 Assessment & Plan (1) Encounter for pre-operative examination: Plan - awaiting [place] medical clearance. - check BSG am DOS. - difficult intubation: per chart, D&C, hysteroscopy (10/05/17): 2 hand ventilation, DVL MAC 3, Grade 4 > glidescope #3 with grade view II/III at [facility]. - Case discussed in detail with Dr. Acosta who advised patient have medical clearance prior to surgery. Patient made aware, denied questions or concerns. Surgeon's office made aware. Chart Review Chart Review: Pending: Refer to Additional Notes / Consult section and Patient seen in Pre Admission Testing Teaching & Discussion Pre-Anesthesia Teaching/Discussion Notes: Instructed NPO after midnight before surgery, except medications with 15 cc of water. Medication instructions provided according to the PAT guidelines. History Surgery Operation Date: 12/08/24 07:30 Proposed Procedures p L4-L5 Laminectomy with Interbody Cage and Lateral Lumbar Interbody Fusion and Open Posterior Instrumentation, Decompression L3-L4, L4-L5, L5-S1 Transitional Segmentation and Autograft, Spinal Cord Monitoring - Jose Valente MD Height/Weight Height: 5 ft 4 in Weight: 99 kg Allergies Allergy/AdvReac Type Severity Reaction Status Date / Time atorvastatin [From Lipitor] AdvReac Intermediate Myalgias Verified 11/17/24 11:32 (see comments) simvastatin [From Zocor] AdvReac Intermediate Myalgias Verified 11/17/24 11:32 Hdnpxuv-ZIH-ZyL Reductase AdvReac Intermediate Myalgias Verified 11/17/24 11:32 Inhibitor [Tfbojpu-Ggl-Hgm Reductase Inhibitor] Medications Home Medications Medication Instructions Recorded Confirmed Last Taken acetaminophen 325 mg capsule 650 mg PO PRN PRN Pain 07/23/19 11/17/24 03/24/23 cetirizine 10 mg tablet (Zyrtec) 10 mg PO QAM 07/23/19 11/17/24 03/25/23 12:00 sumatriptan succinate 25 mg tablet 25 mg PO .COMPLEX PRN Migraine 04/26/23 11/17/24 Unknown (Imitrex) Headache #9 tabs cyclobenzaprine 10 mg tablet 10 mg PO TID PRN muscle spasm #90 06/19/23 11/17/24 Unknown tabs ibuprofen 200 mg tablet 800 mg PO TID PRN Pain 06/19/23 11/17/24 Unknown montelukast 10 mg tablet 10 mg PO QAM #90 tabs 03/04/24 11/17/24 Unknown amlodipine 5 mg tablet 5 mg PO QAM #90 tabs 04/07/24 11/17/24 Unknown metformin 500 mg tablet 1,000 mg (2 x 500 mg) PO QAM #180 05/05/24 11/17/24 Unknown tabs losartan 100 mg tablet 100 mg PO HS #90 tabs 07/01/24 11/17/24 Unknown allopurinol 300 mg tablet 300 mg PO QAM #90 tabs 08/27/24 11/17/24 Unknown gabapentin 300 mg capsule 600 mg (2 x 300 mg) PO TID #540 09/08/24 11/17/24 Unknown caps oxycodone 10 mg tablet 10 mg PO Q6H PRN pain #120 tabs 09/24/24 11/17/24 Unknown amitriptyline 25 mg tablet 25 mg PO HS 11/06/24 11/17/24 Unknown dapagliflozin propanediol 10 mg 10 mg PO QAM 11/06/24 11/17/24 Unknown tablet duloxetine 60 mg capsule,delayed 60 mg PO HS 11/06/24 11/17/24 Unknown release ezetimibe 10 mg tablet (Zetia) 10 mg PO HS 11/06/24 11/17/24 Unknown rabeprazole 20 mg tablet,delayed 20 mg PO HS 11/06/24 11/17/24 Unknown release (AcipHex) ropinirole 0.25 mg tablet 0.25 mg PO UD 11/06/24 11/17/24 Unknown spironolactone 25 1 tab PO QAM 11/06/24 11/17/24 Unknown mg-hydrochlorothiazide 25 mg tablet thyroid (pork) 60 mg tablet 60 mg PO HS 11/06/24 11/17/24 Unknown Past Medical History Medical History Allergic rhinitis Anxiety claustrophobia in MRI/CT scans Arthritis Asthma Allergy induced, stable-states has not needed rescue inhaler for several months CKD (chronic kidney disease) sees neph dr. cerna Degenerative spondylolisthesis Diabetes mellitus type 2, controlled NIDDM GERD (gastroesophageal reflux disease) controlled, stable per pt Hx of endometriosis Hx of gout Hx of migraines last was approx. 9 months Hx of non-Hodgkin's lymphoma (2004) s/p chemo/xrt (2004), subsequent prophylactic chemo ([id number]) "Not active" per pt Hypercholesteremia Hypertension controlled, stable per pt Hypothyroidism Lumbar stenosis with neurogenic claudication Osteoarthritis of knees, bilateral Postmenopausal Primary hyperparathyroidism Restless leg syndrome Seasonal allergies Sleep apnea no cpap - used in past/ can't tolerate Spinal stenosis Patient denies h/o stroke, seizures, heart attack, heart failure, blood clots /DVTs or blood transfusions. Exercise / Class Metabolic Activity II 4-5 Yardwork/Stairs/Walk up hill (mild shortness of breath with one flight of stairs ongoing for several years-denies change or worsening; denies chest discomfort) Past Family History Family History Mother Arthritis Heart disease Father Heart disease Diabetes Hypertension Other No family history of adverse response to anesthesia No family history of bleeding disorder Denies family history of Ovarian cancer Breast cancer Colorectal cancer Past Surgical History Surgical History H/O abdominal surgery (2003) Exploratory surgery r/t non hodgkin's lymphoma (2003) History of appendectomy (2014) History of colonoscopy History of dilatation and curettage x3 History of esophagogastroduodenoscopy (EGD) History of hysteroscopy (07/2023) History of oral surgery (2011) Gum surgery for excessive bone growth (2011) S/P epidural steroid injection [place] teeth extracted Past Anesthesia History No Hx of Anesthesia Complications and No Family Hx of Anesthesia Complications History of PONV No Hx of PONV and No Hx of Motion Sickness Social History Smoking Status: Never smoker Do You Dip or Chew Tobacco: No Hx Alcohol Use: Yes alcohol intake frequency: holidays/special occasions only Hx Substance Use: No substance use type: does not use Review of Systems Patient denies chest pain, dizziness, lightheadedness, fever, chills, cough, wheezing, or palpitations. Physical Exam Vital Signs Vitals BP 106/68 P 104 (patient reports chronic tachycardia) TEMP 98.1 SP02 99% on RA RESP 18 Physical Patient resting comfortably in chair in no acute distress, alert and oriented, responding appropriately throughout visit Full cervical extension range of motion without pain TMD < 3 finger breadths Mallampati Score 2 Dentition: one cap, denies chipped or loose teeth, caps, implants or bridges Lungs: normal respiratory effort. Good air movement, clear throughout to auscultation, no adventitious breath sounds Cardiac: regular rate and rhythm, no murmurs noted Carotid arteries: negative bruit bilat Lab Results Anesthesia Preop Results Results Anesthesia Widget: WBC 8.84 K/ul (4.8-10.8) 11/17/24 Hgb 11.6 g/dl (12.0-16.0) L 11/17/24 Hct 36.0 % (37.0-47.0) L 11/17/24 Plt 275 K/uL (130-400) 11/17/24 Na 137 mmol/L (136-145) 11/17/24 K 3.8 mmol/L (3.5-5.1) 11/17/24 Cl 101 mmol/L (98-107) 11/17/24 CO2 25 mmol/L (21-32) 11/17/24 BUN 24 mg/dl (6-23) H 11/17/24 Creat 1.60 mg/dl (0.6-1.2) H 11/17/24 Glucose Level 162 mg/dl (70-99(Fasting)) H 11/17/24 PT 10.5 Seconds (9.0-12.0) 11/17/24 PTT 25 Seconds (21-31) 11/17/24 INR 1.0 (0.9-1.1) 11/17/24 HA1c 6.4 % (4.5-5.6) H 11/17/24 Blood Type O Negative 11/17/24 Antibody Screen NEGATIVE 11/17/24 Testing Electrocardiogram Date: 11/17/24 Sinus tachycardia, rate [address] & T wave abnormality, consider inferior ischemia ST & T wave abnormality, consider anterolateral ischemia Chest X-Ray Date: 11/17/24 Prominent arch of the aorta. No acute cardiopulmonary abnormalities were identified. No significant interval changes.
[2024-12-08] MEDS: ACETAMINOPHEN 500 MG TAB PO SCH (06:11)
[2024-12-08] MEDS: LR 60ML/HR IV SCH (06:11)
[2024-12-08] MEDS: LR 15ML/HR IV SCH (06:11)
[2024-12-08] MEDS: GABAPENTIN 300 MG CAP PO SCH ×2 (06:11→21:10)
[2024-12-08] MEDS ORDERED: ONDANSETRON INJ 2 MG/ML 2 ML VIAL IV PRN ×2 (07:01→17:13)
[2024-12-08] MEDS ORDERED: ePHEDrine sulfate 50 MG/ML AMP IV PRN (07:01)
[2024-12-08] MEDS ORDERED: fentaNYL citrate PF 100 MCG/2 ML VIAL IV PRN (07:01)
[2024-12-08] MEDS ORDERED: HYDROmorphone INJ 1 MG/ML SYRINGE IV PRN (07:01)
[2024-12-08] MEDS ORDERED: ATROPINE SULFATE 0.1 MG/ML 10ML SYR IV PRN (07:01)
[2024-12-08] MEDS ORDERED: PROPOFOL IV EMULSION 10 MG/ML 20 ML VIAL IV ONE ×3 (07:22→08:19)
[2024-12-08] MEDS ORDERED: LIDOCAINE 2% 2 ML VIAL/AMP(20MG/ML) INFIL ONE (07:22)
[2024-12-08] MEDS ORDERED: SUCCINYLCHOLINE CHLORIDE 20 MG/ML 10 ML VIAL IV ONE (07:24)
[2024-12-08] MEDS ORDERED: fentaNYL citrate PF 100 MCG/2 ML VIAL ONE (07:25)
--- NOTE | 2024-12-08 07:33 | History & Physical Bridge Note ---
Date of Service December 08, 2024 History & Physical Bridge Note I have examined the patient, reviewed the History & Physical and in the interval since the performance of the History & Physical I have noted the following changes of clinical significance: no changes noted
[2024-12-08] MEDS ORDERED: MIDAZOLAM HCL 1 MG/ML 2ML VIAL ONE (07:42)
[2024-12-08] MEDS ORDERED: KETAMINE HCL 10MG/ML SYR ONE (07:43)
[2024-12-08] MEDS: ceFAZolin 2000MG 2,000 MG/15 ML SYR IV SCH (07:47)
[2024-12-08] MEDS ORDERED: HYDROmorphone INJ 2 MG/ML SYR/VIAL ONE (08:19)
[2024-12-08] MEDS ORDERED: PHENYLEPHRINE HCL 10 MG/ML VIAL ONE ×4 (08:24→14:51)
[2024-12-08] MEDS ORDERED: GLYCOPYRROLATE 0.2 MG/ML VIAL ONE (08:40)
[2024-12-08] MEDS ORDERED: DEXAMETHASONE SOD INJ 4 MG/ML VIAL ONE (09:17)
[2024-12-08] MEDS ORDERED: ceFAZolin 330 MG/ML 1 GM VIAL ONE ×2 (11:43→15:11)
[2024-12-08] MEDS ORDERED: ROCURONIUM BROMIDE 10 MG/ML 5 ML VIAL IV ONE (12:23)
[2024-12-08] MEDS ORDERED: PROPOFOL IV EMULSION 10 MG/ML 100 ML VIAL IV ONE ×3 (12:23→14:12)
[2024-12-08] MEDS ORDERED: ONDANSETRON INJ 2 MG/ML 2 ML VIAL ONE (16:40)
[2024-12-08] MEDS ORDERED: PHENYLEPHRINE 100MCG/ML 5ML SYR ONE (16:43)
[2024-12-08] MEDS: BUPIVACAINE/EPINEPHRINE 0.5% MPF 1:200,000 30 ML VIAL ONE (16:50)
[2024-12-08] MEDS: GELATIN SPONGE 12-7MM ONE (16:50)
[2024-12-08] MEDS: THROMBIN 5000 UNITS KIT ONE (16:51)
[2024-12-08] MEDS: VANCOMYCIN HCL 1000MG/20ML VIAL ONE (16:51)
[2024-12-08] MEDS ORDERED: bisacodyL 10 MG SUPP PR PRN (17:13)
[2024-12-08] MEDS ORDERED: ACETAMINOPHEN 1,000 MG/100 ML VIAL IV PRN (17:13)
[2024-12-08] MEDS ORDERED: DO NOT ADMINISTER PNEUMOCOCCAL VACCINE PRN (17:13)
[2024-12-08] MEDS ORDERED: ONDANSETRON 4 MG OD TAB PO PRN (17:13)
[2024-12-08] MEDS ORDERED: METOCLOPRAMIDE HCL INJ 5 MG/ML 2 ML VIAL IV PRN (17:13)
[2024-12-08] MEDS ORDERED: MAGNESIUM HYDROXIDE SUSP 30 ML UDC PO PRN (17:13)
[2024-12-08] MEDS ORDERED: FAMOTIDINE 20 MG TAB PO PRN (17:13)
[2024-12-08] MEDS ORDERED: LORazepam 0.5 MG TAB PO PRN (17:13)
[2024-12-08] MEDS ORDERED: DO NOT ADMINISTER FLU VACCINE PRN (17:13)
[2024-12-08] MEDS ORDERED: SOD PHOSPHATE/SOD BIPHOSPHATE ENEMA 132 ML BTL PR PRN (17:13)
[2024-12-08] MEDS ORDERED: diphenhydrAMINE Capsule 25 MG CAP PO PRN (17:13)
[2024-12-08] MEDS ORDERED: PROMETHAZINE 12.5 MG/50.5 ML BAG IV PRN (17:13)
[2024-12-08] MEDS ORDERED: NALOXONE HCL 0.4 MG/1 ML VIAL/CARP IV PRN (17:13)
[2024-12-08] MEDS ORDERED: hydrOXYzine HCl 25 MG TAB PO PRN (17:13)
[2024-12-08] MEDS ORDERED: ALUMINUM/MAGNESIUM SUSP 30 ML UDC PO PRN (17:13)
[2024-12-08] MEDS ORDERED: LORazepam 2 MG/1 ML VIAL IV PRN (17:13)
--- NOTE | 2024-12-08 17:13 | Post Operative Brief Note ---
PG Immediate Post Op with CF Date of Surgery December 08, 2024 Pre & Post Diagnosis Operation Date: 12/08/24 07:30 Pre-Op Diagnosis: Degenerative Spondylolisthesis, Lumbar Radiculopathy Post-Op Diagnosis: Degenerative Spondylolisthesis, Lumbar Radiculopathy I identified the patient and participated in the time-out.: Yes Procedure Operation Date: 12/08/24 07:30 Actual Procedures p L4-L5 Laminectomy with Interbody Cage and Lateral Lumbar Interbody Fusion and Open Posterior Instrumentation, Decompression L3-L4, L4-L5, L5-S1 Transitional Segmentation and Autograft, Spinal Cord Monitoring - Jose Valente MD Surgeon Jose Valente MD Director Education Juan Gloria Estimated Blood Loss 300 Findings Consistent with Post-Op Diagnosis Specimens Specimen Description: none per surgeon Drains Morales Catheter
[2024-12-08] MEDS ORDERED: SUMAtriptan succinate 25 MG TAB PO PRN (17:22)
--- NOTE | 2024-12-08 18:00 | Anesthesiology Progress Note ---
Date of Service December 08, 2024 Anesthesia Post Procedure Vital Signs Vital Signs: Temp Pulse Pulse Resp BP Pulse Ox O2 Del Method 12/08/24 17:45 92 H 15 96/65 L 99 Oxymask 12/08/24 17:35 94 H 15 93/66 L 99 Oxymask 12/08/24 17:25 89 14 97/63 L 96 Oxymask 12/08/24 17:16 36.8 C 89 20 97/65 L 95 Oxymask 12/08/24 05:59 37.4 C 96 H 16 105/72 96 Room Air O2 Flow Rate 12/08/24 17:45 4 12/08/24 17:35 7 12/08/24 17:25 7 12/08/24 17:16 5 12/08/24 05:59 Pain Intensity Bilateral Lower Back: Pain Intensity: 6 Transfer of Care Handoff Completed per policy Notes Mental Status: alert / awake / arousable Patient Amnestic to Procedure: Yes Nausea / Vomiting: adequately controlled Pain: adequately controlled Airway Patency, RR, SpO2: stable & adequate BP & HR: stable & adequate Hydration State: stable & adequate Anesthetic Complications: no major complications apparent
--- NOTE | 2024-12-08 20:27 | Hospitalist Consultation ---
Date of Consultation December 08, 2024 Assessment & Plan (1) Lumbar stenosis with neurogenic claudication: Patient is a 64 y/o female with PMH of DM2, hypertension , hyperlipidemia, lumbar spinal stenosis, GERD, OA, Migraines, CKD III here POD #1 Lumbar laminectomy. Medicine consulted for Medical management Pain med managed by surgery Oxycodone/ Acetaminophen as needed ofr pain PT/OT Labs for AM (2) Hypertension: Continue Amlodipine, hydrochlorothiazide, and Losartan Recently started Metoprolol 25 mg by Cardiology, Will continue (3) Hypothyroidism: Continue [place] thyroid (4) Chronic kidney disease, stage 3a: Avoid Nephrotoxic medication CMP AM (5) Anxiety: Continue Amytriptylin, Cymbalta (6) Gastroesophageal reflux disease: Pepcid as needed (7) Sleep apnea: Hx of sleep apnea Does not use CPAP at home (8) Diabetes mellitus type 2, controlled: Hold Metformin NovoLog ACHS added (9) Elevated LDL cholesterol level: continue Zetia (10) Restless leg syndrome: continue ropinirole Plan FEN: Clear liquid Code status: full code DVT ppx: SCDs for now, may start tomorrow lovenox sq after reviewed of labs Dispo: med/surg History of Present Illness Attending Physician: Jose Valente MD History of Present Illness Patient is a 64 y/o female with PMH of DM2, hypertension , hyperlipidemia, lumbar spinal stenosis, GERD, OA, Migraines, CKD III here POD #1 Lumbar laminectomy. Medicine consulted for Medical management Seen this afternoon, found alert and oriented x3. Refers back pain from the surgery, otherwise doing well. Patient with history multilevel lumbar stenosis, had surgery today with Dr. Valente. Denied any nausea, vomiting, abdominal pain, leg pain/edema, chest pain, SOB or any other symptoms. Pain is 5/10 now. She saw Care Tech for pre op: Metoprolol was added. Patient has history of DM2 that take Metformin daily. Allergies Allergy/AdvReac Type Severity Reaction Status Date / Time atorvastatin [From Lipitor] AdvReac Intermediate Myalgias Verified 12/08/24 05:51 (see comments) simvastatin [From Zocor] AdvReac Intermediate Myalgias Verified 12/08/24 05:51 Rxyifte-GKT-RaZ Reductase AdvReac Intermediate Myalgias Verified 02/03/25 05:51 Inhibitor [Elctthk-Bie-Drt Reductase Inhibitor] Home Medications Medication Instructions Recorded Confirmed Type acetaminophen 325 mg capsule 650 mg PO PRN PRN Pain 07/23/19 12/08/24 History cetirizine 10 mg tablet (Zyrtec) 10 mg PO QAM 07/23/19 12/08/24 History sumatriptan succinate 25 mg tablet 25 mg PO .COMPLEX PRN Migraine 04/26/23 12/08/24 Rx (Imitrex) Headache #9 tabs cyclobenzaprine 10 mg tablet 10 mg PO TID PRN muscle spasm #90 06/19/23 12/08/24 Rx tabs ibuprofen 200 mg tablet 800 mg PO TID PRN Pain 06/19/23 12/08/24 History montelukast 10 mg tablet 10 mg PO QAM #90 tabs 03/04/24 12/08/24 Rx amlodipine 5 mg tablet 5 mg PO QAM #90 tabs 04/07/24 12/08/24 Rx metformin 500 mg tablet 1,000 mg (2 x 500 mg) PO QAM #180 05/05/24 12/08/24 Rx tabs losartan 100 mg tablet 100 mg PO HS #90 tabs 07/01/24 12/08/24 Rx allopurinol 300 mg tablet 300 mg PO QAM #90 tabs 08/27/24 12/08/24 Rx gabapentin 300 mg capsule 600 mg (2 x 300 mg) PO TID #540 09/08/24 12/08/24 Rx caps oxycodone 10 mg tablet 10 mg PO Q6H PRN pain #120 tabs 09/24/24 12/08/24 Rx amitriptyline 25 mg tablet 25 mg PO HS 11/06/24 12/08/24 History dapagliflozin propanediol 10 mg 10 mg PO QAM 11/06/24 12/08/24 History tablet duloxetine 60 mg capsule,delayed 60 mg PO HS 11/06/24 12/08/24 History release ezetimibe 10 mg tablet (Zetia) 10 mg PO HS 11/06/24 12/08/24 History rabeprazole 20 mg tablet,delayed 20 mg PO HS 11/06/24 12/08/24 History release (AcipHex) ropinirole 0.25 mg tablet 0.25 mg PO UD 11/06/24 12/08/24 History spironolactone 25 1 tab PO QAM 11/06/24 12/08/24 History mg-hydrochlorothiazide 25 mg tablet thyroid (pork) 60 mg tablet 60 mg PO HS 11/06/24 12/08/24 History metoprolol succinate 25 mg 25 mg PO DAILY #90 tabs 11/27/24 12/08/24 Rx tablet,extended release 24 hr Patient History Medical History Diabetes mellitus type 2, controlled Osteoarthritis of knees, bilateral Lumbar stenosis with neurogenic claudication Hypothyroidism Hypertension Hypercholesteremia Hx of non-Hodgkin's lymphoma (2004) Degenerative spondylolisthesis Postmenopausal Hx of migraines Primary hyperparathyroidism Hx of endometriosis Restless leg syndrome Sleep apnea Spinal stenosis GERD (gastroesophageal reflux disease) CKD (chronic kidney disease) Arthritis Anxiety Allergic rhinitis Hx of gout Seasonal allergies Asthma Surgical History History of hysteroscopy (07/2023) S/P epidural steroid injection History of dilatation and curettage History of esophagogastroduodenoscopy (EGD) History of colonoscopy [place] teeth extracted History of oral surgery (2011) History of appendectomy (2014) H/O abdominal surgery (2003) Family History Mother Arthritis Heart disease Father Heart disease Diabetes Hypertension Other No family history of adverse response to anesthesia No family history of bleeding disorder Denies family history of Ovarian cancer Breast cancer Colorectal cancer Social History Smoking Status: Never smoker Second Hand Exposure: No; Do You Dip or Chew Tobacco: No; Tobacco Cessation Education Requested by Patient: No Hx Alcohol Use: Yes Hx Substance Use: No Preferred Language: Peruvian Communication Ability: Effective Hearing Ability: Normal Vehicle Check In Clerk Required: No Beliefs That Will Affect Care: None marital status: Current Living Situation: Spouse current occupational status: retired 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 [employer] Other Information That Helps Us Care for You: No Feels Safe at Home: Yes Safety Concerns: Feels Safe At This Time Childhood Exposure to Second-Hand Smoke: No Diet: regular caffeine: Yes (12 oz coke daily) Dental Care, Regularly: Yes Physical Activity Frequency: Does not Exercise Seatbelt Use: always Sunscreen Use: No Gender Identity: Female Assistive Devices: Cane and Glasses Review of Systems Review of Systems: as per HPI Physical Exam Constitutional: WD/WN, vitals as above ENMT: external ear and nose normal, oropharynx normal Respiratory: normal respiratory effort, lungs clear to auscultation Cardiovascular: RRR, no murmur, no edema Gastrointestinal (Abdomen): normal bowel sounds, soft, nontender, no hepatosplenomegaly Skin: no rashes, warm and dry Results & Data Results & Data Vital Signs (Past 12 Hours) Vital Signs Temp Pulse Pulse Resp BP Pulse Ox O2 Del Method 12/08/24 19:27 36.5 C 96 H 18 101/68 100 Room Air 12/08/24 19:05 36.6 C 97 H 12 101/71 95 Room Air 12/08/24 18:55 93 H 12 101/69 95 Room Air 12/08/24 18:45 91 H 14 99/70 L 96 Room Air 12/08/24 18:35 93 H 12 100/63 94 Room Air 12/08/24 18:25 94 H 11 L 100/68 95 Room Air 12/08/24 18:15 12 L 13 94/69 L 96 Room Air 12/08/24 18:05 92 H 13 103/67 97 Room Air 12/08/24 17:55 92 H 12 103/65 95 Room Air 12/08/24 17:45 92 H 15 96/65 L 99 Oxymask 12/08/24 17:35 94 H 15 93/66 L 99 Oxymask 12/08/24 17:25 89 14 97/63 L 96 Oxymask 12/08/24 17:16 36.8 C 89 20 97/65 L 95 Oxymask O2 Flow Rate 12/08/24 19:27 12/08/24 19:05 12/08/24 18:55 12/08/24 18:45 12/08/24 18:35 12/08/24 18:25 12/08/24 18:15 12/08/24 18:05 12/08/24 17:55 12/08/24 17:45 4 12/08/24 17:35 7 12/08/24 17:25 7 12/08/24 17:16 5 Resident Activity Tracking Resident Involvement: Resident Care Provided Care Provided: Adult Hospital Medicine (6) Gastroesophageal reflux disease Esophagitis presence: without esophagitis Qualified Code(s): K21.9 - Gastro- esophageal reflux disease without esophagitis (7) Sleep apnea Sleep apnea type: obstructive Qualified Code(s): G47.33 - Obstructive sleep apnea (adult) (pediatric) (8) Diabetes mellitus type 2, controlled Diabetes mellitus complication status: without complication 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
[2024-12-08] MEDS ORDERED: GLUCOSE 10 TAB/TUBE PO PRN (20:45)
[2024-12-08] MEDS ORDERED: GLUCAGON FOR INJ 1 MG VIAL SQ PRN (20:45)
[2024-12-08] MEDS ORDERED: GLUCOSE 40% GEL 15 GM TUBE PO PRN (20:45)
[2024-12-08] MEDS ORDERED: CARBOHYDRATES FOR HYPOGLYCEMIA PO PRN (20:45)
[2024-12-08] MEDS ORDERED: DEXTROSE 50% 50 ML SYRINGE IV PRN (20:45)
[2024-12-08] MEDS: oxyCODONE/ACETAMINOPHEN 5mg/325mg TAB PO PRN (20:58)
[2024-12-08] MEDS: DOCUSATE SODIUM/SENNA 50/8.6MG TAB PO SCH (20:59)
[2024-12-08] MEDS: EZETIMIBE 10 MG TAB PO SCH (21:00)
[2024-12-08] MEDS: DULoxetine HCL 60 MG CAP PO SCH (21:00)
[2024-12-08] MEDS: rOPINIRole HCL 0.25 MG TABLET PO SCH (21:01)
[2024-12-08] MEDS: ARMOUR THYROID 30 MG TAB PO SCH (21:09)
[2024-12-08] MEDS: LOSARTAN POTASSIUM 50 MG TAB PO SCH (21:10)
[2024-12-08] MEDS: AMITRIPTYLINE HCL 25 MG TAB PO SCH (21:10)
[2024-12-08] MEDS: INSULIN ASPART PER UNIT CHARGE SC SCH (21:11)
[2024-12-09] MEDS: ceFAZolin 2000MG 2,000 MG/15 ML SYR IV SCH
[2024-12-09] MEDS: HYDROmorphone INJ 0.5 MG/0.5 ML SYR IV PRN (00:05)
[2024-12-09] MEDS ORDERED: HYDROmorphone INJ 1 MG/ML SYRINGE IV PRN (00:33)
[2024-12-09] MEDS: SODIUM CHLORIDE 0.9% 500 ML IV ONE ×2 (03:44→11:19)
[2024-12-09] MEDS: SODIUM CHLORIDE 0.9% 1,000 ML IV SCH (04:45)
[2024-12-09] MEDS: POLYETHYLENE (MIRALAX) 17 GM PACK PO SCH (06:10)
--- NOTE | 2024-12-09 08:02 | Fluoroscopy Report ---
FL lumbar spine 2-3V CLINICAL HISTORY: L4-L5 LATERAL INTERBODY L3-S1 DECOMPRESSION COMPARISON STUDY: None FLUOROSCOPY TIME: 214 seconds FLUOROSCOPY IMAGES: 11 EXPOSURE DOSE: 146 mGy FINDINGS: Fluoroscopy was provided for lumbar metallic spinal fusion. IMPRESSION: Intraoperative fluoroscopy. ACT 112: Negative or not required by law. Electronically signed by: Eric Liu M.D. 12/09/2024 8:00 AM
[2024-12-09 08:39] LABS: Hematocrit (blood only) 23.9 % (37.0-47.0); Mean Corpuscular Hemoglobin 30.2 pg (25.0-34.0); Mean Corpuscular Hgb Conc 33.5 g/dL (32.0-36.0); Mean Corpuscular Volume 90.2 fL (80.0-100.0); Mean Platelet Volume 11.2 fL (9.4-12.4); Platelet Count 212 K/uL (130-400); RDW Standard Deviation 45.6 fL (36.4-46.3); Red Blood Count 2.65 M/uL (4.20-5.40); White Blood Count 12.93 K/ul (4.8-10.8)
[2024-12-09 08:40] LABS: Prothrombin Time 10.7 Seconds (9.0-12.0)
[2024-12-09 08:54] LABS: Albumin Globulin Ratio 1.6 (0.9-2); Albumin Level 3.2 gm/dl (3.4-5.0); BUN Creatinine Ratio 20.8 (10-20); Bilirubin,Total 0.3 mg/dl (0.2-1.0); Calcium 9.2 mg/dl (8.6-10.3); Potassium 4.3 mmol/L (3.5-5.1); Total Protein 5.2 gm/dl (6.0-8.3)
[2024-12-09] MEDS ORDERED: hydroCHLOROthiazide 25 MG TAB PO SCH (09:00)
[2024-12-09] MEDS ORDERED: metFORMIN HCL 500 MG TAB PO SCH (09:00)
[2024-12-09] MEDS ORDERED: amLODIPine BESYLATE 5 MG TAB PO SCH (09:00)
[2024-12-09] MEDS: MONTELUKAST SODIUM 10 MG TABLET PO SCH (09:05)
[2024-12-09] MEDS: METOPROLOL SUCC 25MG EXT REL TAB PO SCH (09:05)
[2024-12-09] MEDS: CETIRIZINE HCL 10 MG TABLET PO SCH (09:05)
[2024-12-09] MEDS: SPIRONOLACTONE 25 MG TAB PO SCH (09:06)
--- NOTE | 2024-12-09 11:00 | Hospitalist Progress Note ---
Date of Service December 09, 2024 Assessment & Plan (1) Lumbar stenosis with neurogenic claudication: Plan: Patient is a 64 y/o female with PMH of DM2, hypertension , hyperlipidemia, lumbar spinal stenosis, GERD, OA, Migraines, CKD III here POD #1 Lumbar laminectomy. Medicine consulted for Medical management Pain med managed by surgery Oxycodone/ Acetaminophen as needed ofr pain PT/OT Labs for AM (2) Hypertension: Plan: Hypotensive overnight and this morning with BP 90s/60s Hold Amlodipine, hydrochlorothiazide were held Also hold spironolactone and losartan. Metoprolol has hold parameters - was recently started by cardiology IV NS 500 mL Hg 8.0 <--11.6 (3) Hypothyroidism: Plan: Continue [place] thyroid (4) Chronic kidney disease, stage 3a: Plan: Avoid Nephrotoxic medication CMP stable Cr 1.44 better than recent was 1.6 (5) Anxiety: Plan: Continue Amytriptylin, Cymbalta (6) Gastroesophageal reflux disease: Plan: Pepcid as needed (7) Sleep apnea: Plan: Hx of sleep apnea Does not use CPAP at home (8) Diabetes mellitus type 2, controlled: Plan: Hold Metformin NovoLog ACHS added (9) Elevated LDL cholesterol level: Plan: continue Zetia (10) Restless leg syndrome: Plan: continue ropinirole Plan FEN: Clear liquid Code status: full code DVT ppx: SCDs for now, may start tomorrow lovenox sq after reviewed of labs Dispo: med/surg Admission and Anticipated Discharge Date Admission Date: December 08, 2024 Results & Data Results & Data Vital Signs (Past 12 Hours) Vital Signs Temp Pulse Resp BP BP Pulse Ox O2 Del Method 12/09/24 07:25 97.9 F 91 H 18 99/60 L 92 Room Air 12/09/24 06:12 97.7 F 80 16 99/65 L 96 Room Air 12/09/24 04:39 89/54 L 12/09/24 04:21 86/53 L 12/09/24 03:25 97.9 F 93 H 18 88/59 L 92 Room Air PG Care Time/CCT Total # of Minutes Spent Total Time Spent with Patient: Total time spent is greater than 50% in coordination of care (as documented) at patient's floor/unit and/or counseling patient: Coding Diagnoses Lumbar stenosis with neurogenic claudication M48.062 Hypertension I10 Hypothyroidism E03.9 Chronic kidney disease, stage 3a N18.31 Anxiety F41.9 Gastroesophageal reflux disease without esophagitis K21.9 Esophagitis presence: without esophagitis Obstructive sleep apnea syndrome G47.33 Sleep apnea type: obstructive Controlled type 2 diabetes mellitus without complication, without long-term cu rrent use of insulin E11.9 Diabetes mellitus long-term insulin use: without long-term use Diabetes mellitus complication status: without complication Elevated LDL cholesterol level E78.00 Restless leg syndrome G25.81 (6) Gastroesophageal reflux disease Esophagitis presence: without esophagitis Qualified Code(s): K21.9 - Gastro- esophageal reflux disease without esophagitis (7) Sleep apnea Sleep apnea type: obstructive Qualified Code(s): G47.33 - Obstructive sleep apnea (adult) (pediatric) (8) Diabetes mellitus type 2, controlled Diabetes mellitus long-term insulin use: without cheese grader use Diabetes mellitus complication status: without complication Qualified Code(s): E11.9 - Type 2 diabetes mellitus without complications
--- NOTE | 2024-12-09 12:29 | Orthopedic Progress Note ---
Date of Service December 09, 2024 Assessment & Plan (1) Status post lumbar spine surgery for decompression of spinal cord: Assessment: Status post L4-L5 laminectomy with interbody cage and lateral lumbar interbody fusion and open posterior instrumentation, decompression of L3-L4, L4- L5, L5-S1. Plan: Overall, she is doing quite well today with good pain control to the lumbar spine. She will work with physical therapy later this morning to work on ambulation and range of motion exercises. She will more than likely require to be inpatient for couple days to allow for her to get adequate rehabilitation to be discharged home. While inpatient, she can continue her current pain analgesic regimen as well as working with physical therapy. We will continue to monitor her throughout her hospital course. Subjective . Patient was seen this morning resting comfortably in no apparent distress. She does note some discomfort to her lumbar spine. She does note marked improvement from her preoperative state from her stenosis. She has yet to be up and out of bed. She has yet to work with physical therapy this morning. She denies any concerns with surgical incision site. She denies any active bleeding, discharge, or signs of infection. She denies any other concerns today. Patient seen and examined, patient notes distinct improvement in lower extremities, some incisional pain. Review of Systems All systems reviewed & are unremarkable except as noted in HPI & below. Physical Exam . On physical examination of her lumbar spine, dressings are clean, dry, and intact with no signs of active bleeding, discharge, or signs of infection. She does have active range of motion and strength equal bilaterally down the lower extremities. She has intact plantarflexion dorsiflexion of the left and right ankles. She she is able to flex and extend her right and left great toe. +2 DP and PT pulse. Less than 2-second capillary refill. Normal sensation. Neurovascular intact. Results & Data Results & Data Laboratory Results . Diagnostic Findings . Lumbar Spine X-Ray 12/08/24 07:30 [place] lumbar spine 2-3V CLINICAL HISTORY: L4-L5 LATERAL INTERBODY L3-S1 DECOMPRESSION COMPARISON STUDY: None FLUOROSCOPY TIME: 214 seconds FLUOROSCOPY IMAGES: 11 EXPOSURE DOSE: 146 mGy FINDINGS: Fluoroscopy was provided for lumbar metallic spinal fusion. IMPRESSION: Intraoperative fluoroscopy. ACT 112: Negative or not required by law. Electronically signed by: Eric Liu M.D. 12/09/2024 8:00 AM PG Care Time/CCT Total # of Minutes Spent Total Time Spent with Patient: Total time spent is greater than 50% in coordination of care (as documented) at patient's floor/unit and/or counseling patient: Coding Level of Care Code 47215 Post Operative Follow-Up Diagnoses Status post lumbar spine surgery for decompression of spinal cord Z98.890
[2024-12-09] MEDS: rOPINIRole HCL 0.25 MG TABLET PO SCH (16:30)
[2024-12-09] MEDS: SODIUM CHLORIDE 0.9% 1,000 ML IV ONE (17:32)
--- NOTE | 2024-12-09 20:46 | Hospitalist Progress Note ---
Date of Service December 09, 2024 Assessment & Plan (1) Lumbar stenosis with neurogenic claudication: (2) Hypertension: Plan: Essential HTN. Today, patient is actually hypotensive with BP 82/45 (12/09/2024, 1:58pm), repeat BP 79/45 (12/09/2024, 4:54pm). Give 1 liter of 0.9% NS @ 1000 mL/hr (12/09/2024, 5:19pm), then check repeat BP in 1 hour. (3) Hypothyroidism: Plan: Patient has no goiter, lid lag, or proptosis and appears to be euthyroid on home-scheduled [place] Thyroid 60mg PO qhs with last screening TSH normal at 0.518 uIU/mL (09/19/2024, 8:49am). (4) Chronic kidney disease, stage 3a: (5) Anxiety: (6) Gastroesophageal reflux disease: (7) Sleep apnea: (8) Diabetes mellitus type 2, controlled: Plan: Well-controlled with serum glucose 114 mg/dL (12/09/2024, 7:35am) on carbohydrate consistent diet, lispro insulin sliding scale qac + qhs, and POC glucose qac + qhs. (9) Elevated LDL cholesterol level: (10) Restless leg syndrome: Admission and Anticipated Discharge Date Admission Date: December 08, 2024 Subjective "I feel a little weak. Other than that, no problems today." Review of Systems Constitutional: Negative for antecedent/coincident fevers, chills, diaphoresis, cough, wheeze, sore throat, hemoptysis, chest pains, palpitations, pleurisy, nausea, vomiting, diarrhea, abdominal pain, pelvic pain, hematemesis, hematochezia, melena, hematuria, dysuria, frequency, urgency, headaches, dizziness, lightheadedness, visual changes, hearing changes, weakness, falls, syncope, trauma, travel history, sick contacts, or food/drug ingestions novel or new. All other review of systems are reported as negative by the patient on 12/09/2024. Physical Exam Constitutional: General: comfortable, coherent, cooperative. Wide awake and alert. Not confused, lethargic, or obtunded. Patient speaks in complete, fluent, and articulate sentences without pause, interruption, cough, or wheeze. HEENT: NC/AT. EOMI, PERRL. No nystagmus, gaze paresis, anisocoria, miosis, mydriasis, hyphema, chemosis, scleral icterus, conjunctivitis, or pterygium. No otorrhea, no rhinorrhea. No pharyngeal discharge or erythema. Neck: Supple, no stridor, bruit, goiter, or hepatojugular reflux. Jugular venous pressure is estimated to be 8 cm above the sternal angle of Lee, which is typically 5 cm above the level of the right atrium. Hence, there is no jugular venous distention noted on discharge exam 12/09/2024. Lymphatics: No pre-post auricular, anterior/posterior cervical, supraclavicular/infraclavicular, axillary, epitrochlear, or inguinal adenopathy. Chest: Symmetric rise and fall with respirations. Non-tender to palpation. Heart: RRR, S1 and S2 noted. No S3 or S4 summation gallop noted. No tripartite friction rub. Grade II/ early systolic murmur @ LLSB without radiation to the carotids, axilla, or back, and which remains invariant in regards to the respiratory cycle. Lungs: Clear to auscultation and percussion. No audible expiratory wheeze, egophony, pectoriloquy, increase in tactile fremitus, or flatness/dullness to percussion at the bases. Abdomen: Soft, non-tender, non-distended. No rebound, guarding, Izquierdo's sign, or organomegaly. Bowel sounds auscultated in all 4 quadrants. Extremities: No clubbing, cyanosis, or edema. 2+ pedal pulses bilaterally. Skin: No decubitus ulcer, exanthem, or enanthem. Neurology: Alert and oriented in regards to person, place, time, and situation. DTR+ and symmetric. 5/5 motor strength in all 4 extremities, both proximally and distally. No myoclonus, tremors, or tics. Urology: No truong catheter. No urethral discharge. Psychiatry: Appropriate affect. Smiles occasionally. No homicidal/suicidal ideation. Results & Data Results & Data Vital Signs (Past 12 Hours) Vital Signs Temp Pulse Resp BP BP Pulse Ox O2 Del Method 02/04/25 19:00 37.1 C 98 H 18 82/52 L 90 Room Air 12/09/24 18:40 90/52 L 12/09/24 16:54 79/45 L 12/09/24 13:58 36.5 C 60 18 82/45 L 98 Room Air PG Care Time/CCT Total # of Minutes Spent Total Time Spent with Patient: Total time spent is greater than 50% in coordination of care (as documented) at patient's floor/unit and/or counseling patient: Coding Level of Care Code 39680 SUB INP/OBS CARE 235MIN Diagnoses Lumbar stenosis with neurogenic claudication M48.062 Primary hypertension I10 Hypertension type: primary hypertension Hypothyroidism, unspecified type E03.9 Hypothyroidism type: unspecified Chronic kidney disease, stage 3a N18.31 Anxiety F41.9 Gastroesophageal reflux disease without esophagitis K21.9 Esophagitis presence: without esophagitis Obstructive sleep apnea syndrome G47.33 Sleep apnea type: obstructive Controlled type 2 diabetes mellitus without complication, without long-term current use of insulin E11.9 Diabetes mellitus halfway insulin use: without halfway use Diabetes mellitus complication status: without complication Elevated LDL cholesterol level E78.00 Restless leg syndrome G25.81 (2) Hypertension Hypertension type: primary hypertension Qualified Code(s): I10 - Essential (primary) hypertension (3) Hypothyroidism Hypothyroidism type: unspecified Qualified Code(s): E03.9 - Hypothyroidism, unspecified (6) Gastroesophageal reflux disease Esophagitis presence: without esophagitis Qualified Code(s): K21.9 - Gastro- esophageal reflux disease without esophagitis (7) Sleep apnea Sleep apnea type: obstructive Qualified Code(s): G47.33 - Obstructive sleep apnea (adult) (pediatric) (8) Diabetes mellitus type 2, controlled Diabetes mellitus shrub grower insulin use: without halfway use Diabetes mellitus complication status: without complication Qualified Code(s): E11.9 - Type 2 diabetes mellitus without complications
[2024-12-10 09:14] LABS: Hematocrit (blood only) 21.3 % (37.0-47.0); Hemoglobin 6.9 g/dl (12.0-16.0); Mean Corpuscular Hemoglobin 29.7 pg (25.0-34.0); Mean Corpuscular Hgb Conc 32.4 g/dL (32.0-36.0); Mean Corpuscular Volume 91.8 fL (80.0-100.0); Mean Platelet Volume 11.1 fL (9.4-12.4); Platelet Count 178 K/uL (130-400); RDW Coefficient of Variation 13.9 % (11.5-14.5); RDW Standard Deviation 46.8 fL (36.4-46.3); Red Blood Count 2.32 M/uL (4.20-5.40); White Blood Count 11.97 K/ul (4.8-10.8)
[2024-12-10] MEDS ORDERED: SODIUM CHLORIDE 0.9% 50 ML IV PRN (09:37)
[2024-12-10] MEDS ORDERED: SODIUM CHLORIDE 0.9% 100 ML IV PRN (09:37)
[2024-12-10 10:01] LABS: Basophils # (auto) 0.02 K/uL (0.00-0.20); Basophils % (auto) 0.2 %; Eosinophils # (auto) 0.06 K/uL (0.00-0.50); Eosinophils % (auto) 0.5 %; Immature Granulocytes # (auto) 0.08 K/uL (0.01-0.20); Immature Granulocytes % (auto) 0.7 %; Lymphocytes # (auto) 1.15 K/uL (1.20-3.40); Lymphocytes % (auto) 9.6 %; Monocytes # (auto) 1.05 K/uL (0.11-0.59); Monocytes % (auto) 8.8 %; Neutrophils # (auto) 9.61 K/uL (1.40-6.50); Neutrophils % (auto) 80.2 %; RBC Morphology Unremarkable
--- NOTE | 2024-12-10 10:52 | Orthopedic Progress Note ---
Date of Service December 10, 2024 Assessment & Plan (1) Status post lumbar spine surgery for decompression of spinal cord: (2) S/P lumbar spinal fusion: Plan 64-year-old woman POD#2 s/p L4-L5 Lateral Lumbar Interbody cage, with open Posterior Decompression L3-L4, L4-L5, L5-S1, posterolateral autograft, laminectomy L4-5, L5-S1 and placement of CT navigated posterior instrumentation L4-S1 for fusion. She is struggling with some postoperative pain at the surgical site itself, but her radicular symptoms into the lower extremities are completely improved. She is neurologically intact. Plan: 1. DVT prophylaxis w/ regular ambulation/mobilization. 2. Continue PT/OT. Encourage regular mobilization. 3. Continue pain control regimen as current. 4. Daily dressing changes to check for drainage. Showering per discharge instructions section. 5. Disposition - plan to D/C home today once more optimized with continued inpatient PT/OT; home once cleared, likely tomorrow, 12/11, afternoon/evening. 6. F/u as scheduled on w/ Dr. Valente for first post-op visit. Subjective Patient is POD#2 s/p L4-L5 Lateral Lumbar Interbody cage, with open Posterior Decompression L3-L4, L4-L5, L5-S1, posterolateral autograft, laminectomy L4-5, L5-S1 and placement of CT navigated posterior instrumentation L4-S1 for fusion by Dr. Valente on 12/09/2024. Patient states continued discomfort to the operative site of the lumbar spine, but this has been mildly improving. She is utilizing the ordered pain medication as needed. Denies CP, SOB, N/V, or new LE paresthesia. Patient says the Morales catheter was discontinued earlier this morning. She has been working with PT/OT. Review of Systems All systems reviewed & are unremarkable except as noted in HPI & below. Physical Exam GENERAL: Speech and cognition is intact. Mood and affect is appropriate. Does not appear in acute distress. Found lying in bed, sleeping. HEAD: Normocephalic; atraumatic. CHEST: Regular chest respiration and excursion. EXTREMITIES: Sensation intact to light touch of the bilateral L2-S1 dermatomes. 5/5 strength L1-S2 myotomes; No deficits noted. BACK: Dressings intact to lumbar spine and right flank; no saturation noted. NEURO: Easily aroused from sleep. Alert and oriented x 3. Results & Data Results & Data Laboratory Results Laboratory Results - last 24 hr 12/08/24 12/09/24 12/09/24 05:53 16:43 20:14 WBC RBC Hgb Hct MCV MCH MCHC RDW Std Deviation RDW Coeff of Patrice Plt Count MPV Immature Gran % (Auto) Neut % (Auto) Lymph % (Auto) Jefferson % (Auto) Eos % (Auto) Baso % (Auto) Neut # (Auto) Lymph # (Auto) Jefferson # (Auto) Eos # (Auto) Baso # (Auto) Immature Gran # (Auto) RBC Morphology POC Glucose 163 H 133 H Lactate Procalcitonin Blood Type Blood Type Recheck O Negative Antibody Screen Crossmatch 12/10/24 12/10/24 12/10/24 07:42 08:17 08:42 WBC 11.97 H RBC 2.32 L Hgb 6.9 L* Hct 21.3 L MCV 91.8 MCH 29.7 MCHC 32.4 RDW Std Deviation 46.8 H RDW Coeff of Patrice 13.9 Plt Count 178 MPV 11.1 Immature Gran % (Auto) 0.7 Neut % (Auto) 80.2 Lymph % (Auto) 9.6 Jefferson % (Auto) 8.8 Eos % (Auto) 0.5 Baso % (Auto) 0.2 Neut # (Auto) 9.61 H Lymph # (Auto) 1.15 L Jefferson # (Auto) 1.05 H Eos # (Auto) 0.06 Baso # (Auto) 0.02 Immature Gran # (Auto) 0.08 RBC Morphology Unremarkable POC Glucose 188 H Lactate 0.8 Procalcitonin 0.12 Blood Type O Negative Blood Type Recheck Antibody Screen NEGATIVE Crossmatch See Detail 12/10/24 11:45 WBC RBC Hgb Hct MCV MCH MCHC RDW Std Deviation RDW Coeff of Patrice Plt Count MPV Immature Gran % (Auto) Neut % (Auto) Lymph % (Auto) Jefferson % (Auto) Eos % (Auto) Baso % (Auto) Neut # (Auto) Lymph # (Auto) Jefferson # (Auto) Eos # (Auto) Baso # (Auto) Immature Gran # (Auto) RBC Morphology POC Glucose 151 H Lactate Procalcitonin Blood Type Blood Type Recheck Antibody Screen Crossmatch Diagnostic Findings Lumbar Spine X-Ray 12/08/24 07:30 FL lumbar spine 2-3V CLINICAL HISTORY: L4-L5 LATERAL INTERBODY L3-S1 DECOMPRESSION COMPARISON STUDY: None FLUOROSCOPY TIME: 214 seconds FLUOROSCOPY IMAGES: 11 EXPOSURE DOSE: 146 mGy FINDINGS: Fluoroscopy was provided for lumbar metallic spinal fusion. IMPRESSION: Intraoperative fluoroscopy. ACT 112: Negative or not required by law. Electronically signed by: Eric Liu M.D. 12/09/2024 8:00 AM PG Care Time/CCT Total # of Minutes Spent Total Time Spent with Patient: Total time spent is greater than 50% in coordination of care (as documented) at patient's floor/unit and/or counseling patient: Coding [place] [address] SUB INP/OBS CARE 11/29MIN Patient Type Established Medical Decision Making Low Complexity Diagnoses Status post lumbar spine surgery for decompression of spinal cord Z98.890 S/P lumbar spinal fusion Z98.1
--- NOTE | 2024-12-10 20:36 | Hospitalist Progress Note ---
Date of Service December 10, 2024 Assessment & Plan (1) Acute blood loss anemia: Plan: Patient's Hb level has declined from: cf., Hb 8.0 g/dL (12/09/2024, 7:35am)(admission). cf., Hb 6.9 g/dL (12/10/2024, 8:17am)(pre-transfusion). cf., Hb 7.8 g/dL (12/10/2024, 4:21pm)(post-transfusion). cf., normal baseline Hb range, 12.6 g/dL (06/16/2024, 11:57am) to 11.6 g/dL (11/17/2024, 1:34pm). Patient reports no mucosal bleeding and remains hemodynamically stable. Patient subsequently received 1 unit of packed RBC transfusion on 12/10/2024, and has demonstrated an adequate increase in Hb level post-transfusion on 12/10/2024. I will check repeat Hb level in the 12/11/2024 am. (2) Lumbar stenosis with neurogenic claudication: Plan: Defer to NeuroSurgery Service. (3) Hypertension: Plan: Essential HTN. Yesterday, patient was hypotensive with BP 82/45 (12/09/2024, 1:58pm), repeat BP 79/45 (12/09/2024, 4:54pm). Gave 1 liter of 0.9% NS @ 1000 mL/hr (12/09/2024, 5:19pm), and BP increased to 90/52 (12/09/2024, 6:40pm). Today, patient's BP remains low normal at 97/60 (12/10/2024, 6:14am). Continue to check BP qshift and strive to maintain MAP > 65 mm Hg. (4) Hypothyroidism: Plan: Patient has no goiter, lid lag, or proptosis and appears to be euthyroid on home-scheduled [place] Thyroid 60mg PO qhs with last screening TSH normal at 0.518 uIU/mL (09/19/2024, 8:49am). (5) Chronic kidney disease, stage 3a: (6) Anxiety: (7) Gastroesophageal reflux disease: (8) Sleep apnea: (9) Diabetes mellitus type 2, controlled: Plan: Well-controlled with serum glucose 114 mg/dL (12/09/2024, 7:35am) on carbohydrate consistent diet, lispro insulin sliding scale qac + qhs, and POC glucose qac + qhs. (10) Elevated LDL cholesterol level: (11) Restless leg syndrome: Admission and Anticipated Discharge Date Admission Date: December 08, 2024 Subjective "I feel a little weak. Other than that, no problems today." Review of Systems Constitutional: Negative for antecedent/coincident fevers, chills, diaphoresis, cough, wheeze, sore throat, hemoptysis, chest pains, palpitations, pleurisy, nausea, vomiting, diarrhea, abdominal pain, pelvic pain, hematemesis, hematochezia, melena, hematuria, dysuria, frequency, urgency, headaches, dizziness, lightheadedness, visual changes, hearing changes, weakness, falls, syncope, trauma, travel history, sick contacts, or food/drug ingestions novel or new. All other review of systems are reported as negative by the patient on 12/10/2024. Physical Exam Constitutional: General: comfortable, coherent, cooperative. Wide awake and alert. Not confused, lethargic, or obtunded. Patient speaks in complete, fluent, and articulate sentences without pause, interruption, cough, or wheeze. HEENT: NC/AT. EOMI, PERRL. No nystagmus, gaze paresis, anisocoria, miosis, mydriasis, hyphema, chemosis, scleral icterus, conjunctivitis, or pterygium. No otorrhea, no rhinorrhea. No pharyngeal discharge or erythema. Neck: Supple, no stridor, bruit, goiter, or hepatojugular reflux. Jugular venous pressure is estimated to be 8 cm above the sternal angle of Lee, which is typically 5 cm above the level of the right atrium. Hence, there is no jugular venous distention noted on discharge exam 12/10/2024. Lymphatics: No pre-post auricular, anterior/posterior cervical, supraclavicular/infraclavicular, axillary, epitrochlear, or inguinal adenopathy. Chest: Symmetric rise and fall with respirations. Non-tender to palpation. Heart: RRR, S1 and S2 noted. No S3 or S4 summation gallop noted. No tripartite friction rub. Grade II/ early systolic murmur @ LLSB without radiation to the carotids, axilla, or back, and which remains invariant in regards to the respiratory cycle. Lungs: Clear to auscultation and percussion. No audible expiratory wheeze, egophony, pectoriloquy, increase in tactile fremitus, or flatness/dullness to percussion at the bases. Abdomen: Soft, non-tender, non-distended. No rebound, guarding, Izquierdo's sign, or organomegaly. Bowel sounds auscultated in all 4 quadrants. Extremities: No clubbing, cyanosis, or edema. 2+ pedal pulses bilaterally. Skin: No decubitus ulcer, exanthem, or enanthem. Neurology: Alert and oriented in regards to person, place, time, and situation. DTR+ and symmetric. 5/5 motor strength in all 4 extremities, both proximally and distally. No myoclonus, tremors, or tics. Urology: No truong catheter. No urethral discharge. Psychiatry: Appropriate affect. Smiles occasionally. No homicidal/suicidal ideation. Results & Data Results & Data Vital Signs (Past 12 Hours) Vital Signs Temp Pulse Pulse Resp BP BP Pulse Ox 12/10/24 19:33 36.9 C 98 H 18 96/60 L 93 12/10/24 14:37 37.1 C 97 H 18 97/60 L 93 12/10/24 14:30 37.1 C 97 H 18 97/60 L 93 12/10/24 14:17 36.7 C 95 H 18 99/60 L 93 12/10/24 13:15 36.9 C 101 H 18 97/61 L 91 12/10/24 12:45 36.7 C 100 H 18 95/57 L 93 12/10/24 12:31 91 12/10/24 12:15 36.6 C 114 H 18 88/54 L 94 12/10/24 12:00 37.1 C 108 H 18 95/59 L 12/10/24 11:45 36.7 C 114 H 18 103/60 95 O2 Del Method 12/10/24 19:33 Room Air 12/10/24 14:37 12/10/24 14:30 12/10/24 14:17 12/10/24 13:15 12/10/24 12:45 12/10/24 12:31 12/10/24 12:15 12/10/24 12:00 12/10/24 11:45 PG Care Time/CCT Total # of Minutes Spent Total Time Spent with Patient: Total time spent is greater than 50% in coordination of care (as documented) at patient's floor/unit and/or counseling patient: Coding Level of Care Code 32045 SUB INP/OBS CARE 2/35MIN Diagnoses Acute blood loss anemia D62 Lumbar stenosis with neurogenic claudication M48.062 Primary hypertension I10 Hypertension type: primary hypertension Hypothyroidism, unspecified type E03.9 Hypothyroidism type: unspecified Chronic kidney disease, stage 3a N18.31 Anxiety F41.9 Gastroesophageal reflux disease without esophagitis K21.9 Esophagitis presence: without esophagitis Obstructive sleep apnea syndrome G47.33 Sleep apnea type: obstructive Controlled type 2 diabetes mellitus without complication, without long-term current use of insulin E11.9 Diabetes mellitus detention insulin use: without intermediate designer use Diabetes mellitus complication status: without complication Elevated LDL cholesterol level E78.00 Restless leg syndrome G25.81 (3) Hypertension Hypertension type: primary hypertension Qualified Code(s): I10 - Essential (primary) hypertension (4) Hypothyroidism Hypothyroidism type: unspecified Qualified Code(s): E03.9 - Hypothyroidism, unspecified (7) Gastroesophageal reflux disease Esophagitis presence: without esophagitis Qualified Code(s): K21.9 - Gastro- esophageal reflux disease without esophagitis (8) Sleep apnea Sleep apnea type: obstructive Qualified Code(s): G47.33 - Obstructive sleep apnea (adult) (pediatric) (9) Diabetes mellitus type 2, controlled Diabetes mellitus intermediate designer insulin use: without detention use Diabetes mellitus complication status: without complication Qualified Code(s): E11.9 - Type 2 diabetes mellitus without complications
[2024-12-11 07:59] LABS: Basophils # (auto) 0.03 K/uL (0.00-0.20); Basophils % (auto) 0.3 %; Eosinophils % (auto) 2.2 %; Hematocrit (blood only) 22.9 % (37.0-47.0); Hemoglobin 7.4 g/dl (12.0-16.0); Immature Granulocytes # (auto) 0.05 K/uL (0.01-0.20); Immature Granulocytes % (auto) 0.5 %; Lymphocytes # (auto) 1.18 K/uL (1.20-3.40); Lymphocytes % (auto) 12.8 %; Mean Corpuscular Hemoglobin 29.4 pg (25.0-34.0); Mean Corpuscular Hgb Conc 32.3 g/dL (32.0-36.0); Mean Corpuscular Volume 90.9 fL (80.0-100.0); Mean Platelet Volume 10.8 fL (9.4-12.4); Monocytes # (auto) 0.85 K/uL (0.11-0.59); Monocytes % (auto) 9.2 %; Neutrophils # (auto) 6.94 K/uL (1.40-6.50); Platelet Count 168 K/uL (130-400); RDW Standard Deviation 46.7 fL (36.4-46.3); Red Blood Count 2.52 M/uL (4.20-5.40); White Blood Count 9.25 K/ul (4.8-10.8)
[2024-12-11 08:21] LABS: RBC Morphology Unremarkable
[2024-12-11] MEDS: ACETAMINOPHEN 500 MG TAB PO PRN (08:22)
--- NOTE | 2024-12-11 16:32 | Operative Report ---
PG Post Operative Report Pre & Post Diagnosis Operation Date: 12/08/24 07:30 Pre-Op Diagnosis: Degenerative Spondylolisthesis, Lumbar Radiculopathy Post-Op Diagnosis: Degenerative Spondylolisthesis, Lumbar Radiculopathy I identified the patient and participated in the time-out.: Yes Procedure Operation Date: 12/08/24 07:30 Actual Procedures p L4-L5 Laminectomy with Interbody Cage and Lateral Lumbar Interbody Fusion and Open Posterior Instrumentation, Decompression L3-L4, L4-L5, L5-S1 Transitional Segmentation and Autograft, Spinal Cord Monitoring - Jose Valente MD Surgeon Jose Valente MD Retail Marketing Coordinator Juan Gloria Estimated Blood Loss 300 Findings Consistent with Post-Op Diagnosis Specimens none Description of Procedure 1. L4-5 right lateral interbody arthrodesis. (69744) 2. L4-5 right lateral interbody cage, NuVasive cohere 10 x 18 x 50mm lordotic. (00584) 3. Posterior lumbar laminectomy/decompression L3-4, L4-5, L5-S1. (46478, 00649, 26586) 4. L4-5, L5-S1 posterior lumbar fusion. (36159, 69794) 5. Posterior segmental instrumentation, NuVasive reline. (75064) 6. Utilization of products of decompression for fusion purposes. (40438) 7. Stereotactic CT-guided navigation for instrumentation. (21783) Patient taken operating room after adequate anesthesia was carefully positioned in the left lateral decubitus position. A preprepped was performed for the right lateral lumbar region and posteriorly. Fluoroscopy was brought in, I secured the patient to the operating room table in standard fashion for a lateral approach to the right side for the L4-5 level. Adjustments were made, I used fluoroscopy to then marked for the approximate location of the incision for the lateral approach. Adjustments were made to the table followed by prepping and draping. A transverse incision was made just over the right iliac crest and from here I advanced down to the subcutaneous tissues into the retroperitoneal area where I was able to access the right lateral aspect of the disc space at L4-5 using fluoroscopic control and monitoring. After placing the initial probe/dilator, stable locate an appropriate position, the guidewire was inserted after checking with monitoring, followed by the additional dilators. The access apparatus was then applied, and this allowed me access to the lateral aspect of L4-5. This was visually inspected followed by inspection with the monitoring probe. Adjustments were made using fluoroscopy, I then inserted the tyler. Lateral annulus was incised followed by then a thorough discectomy of the disc space. This was followed by dilators advancing up to the size as noted for the cage. Additional work was done to remove cartilage from the endplates and disc material. The cage was obtained, and fusion materials were placed within the disc base and then also within the cage, this was tapped into excellent position on AP and lateral views. Final inspection revealed no issues vancomycin powder was placed, the operative site was closed using interrupted 0 Vicryl sutures 2-0 Vicryl sutures and radha for the skin, sterile dressing was applied. Patient was then repositioned prone on the Alexander frame, fluoroscopy was brought in where I marked for the incision to encompass the 3 levels to be decompressed and instrument. Longitudinal incision was made in line with spinous processes advanced down on either side exposing the interlaminar region at L3-4, L4-5 and L5-S1. Transverse processes were exposed at L4-L5 and S1, these were decorticated and sponges were packed in this region. The CT navigational array was then attached to the S1 spinous process, a spin was then performed. After completed, I then utilized the navigation equipment to begin the process of instrumentation, high-speed bur was utilized to make the start point for the pedicle screw followed by insertion of the gearshift probe advanced using the navigation first starting at S1 bilaterally. After completion insertion of the gearshift probe, tap was then inserted followed by then insertion of 6.5 millimeter screws. This process was then repeated at L5 and L4, upon completion a new navigation spin was performed, review of the images reveals all instrumentation to be in the proper position. Decompressions were performed, first starting at L3-4 and then moving inferiorly to L4-5 and L5-S1 with bilateral laminectomies partial medial facetectomy and foraminotomies, undercutting the facets and decompressing the segments for the exiting nerve roots. At L3-4 this was accomplished left across to the right side completing a decompression. The bony material obtained during the decompression was collected and the G[place]on device. This fusion material was then combined with a dditional remaining fusion materials and packed in the posterolateral region bilaterally. Rods were then inserted, and using a combination of distraction on the right and some compression on the left at the L4-5 segment I was able to provide additional correction of the degenerative scoliosis. Setscrews were inserted and torqued down properly. The operative area was then irrigated, vancomycin powder was placed, closure was performed with 0 Vicryl sutures in 2 layers along with 2-0 Vicryl sutures and radha for the skin. Sterile dressing was applied, patient tolerated procedure well taken recovery room in satisfactory condition. I attest to the content of the Intraoperative Record and any orders documented therein. Any exceptions are noted below.
[2024-12-11] MEDS: CYCLOBENZAPRINE HCL 10 MG TAB PO PRN (20:41)
--- NOTE | 2024-12-11 20:50 | Hospitalist Progress Note ---
Date of Service December 11, 2024 Assessment & Plan (1) Acute blood loss anemia: Plan: Patient's Hb level declined as shown below: cf., Hb 8.0 g/dL (12/09/2024, 7:35am)(admission). cf., Hb 6.9 g/dL (12/10/2024, 8:17am)(pre-transfusion). cf., Hb 7.8 g/dL (12/10/2024, 4:21pm)(post-transfusion). cf., normal baseline Hb range, 12.6 g/dL (06/16/2024, 11:57am) to 11.6 g/dL (11/17/2024, 1:34pm). Patient reports no mucosal bleeding and remains hemodynamically stable. Patient subsequently received 1 unit of packed RBC transfusion on 12/10/2024, and has demonstrated an adequate increase in Hb level post-transfusion on 12/10/2024 to 7.8 g/dL (12/10/2024, 4:21pm), and which subsequently declined to 7.4 g/dL (12/11/2024, 7:16am). I will check repeat Hb level in the 12/12/2024 am. (2) Lumbar stenosis with neurogenic claudication: Plan: Defer to NeuroSurgery Service. (3) Hypertension: Plan: Essential HTN. Yesterday, patient was hypotensive with BP 82/45 (12/09/2024, 1:58pm), repeat BP 79/45 (12/09/2024, 4:54pm). Gave 1 liter of 0.9% NS @ 1000 mL/hr (12/09/2024, 5:19pm), and BP increased to 90/52 (12/09/2024, 6:40pm). Today, patient's BP remains low normal at 97/60 (12/10/2024, 6:14am) and 96/63 (12/11/2024, 3:00pm). Continue to check BP qshift and strive to maintain MAP > 65 mm Hg. (4) Hypothyroidism: Plan: Patient has no goiter, lid lag, or proptosis and appears to be euthyroid on home-scheduled [place] Thyroid 60mg PO qhs with last screening TSH normal at 0.518 uIU/mL (09/19/2024, 8:49am). (5) Chronic kidney disease, stage 3a: (6) Anxiety: (7) Gastroesophageal reflux disease: (8) Sleep apnea: (9) Diabetes mellitus type 2, controlled: Plan: Well-controlled with serum glucose 114 mg/dL (12/09/2024, 7:35am) and fingerstick glucose 117 mg/dL (12/11/2024, 7:42am) on carbohydrate consistent diet, lispro insulin sliding scale qac + qhs, and POC glucose qac + qhs. (10) Elevated LDL cholesterol level: (11) Restless leg syndrome: Admission and Anticipated Discharge Date Admission Date: December 08, 2024 Subjective "I feel fine. I have no complaints today at all. I got transfused with one bag of blood yesterday. I am fine." Review of Systems Constitutional: Negative for antecedent/coincident fevers, chills, diaphoresis, cough, wheeze, sore throat, hemoptysis, chest pains, palpitations, pleurisy, nausea, vomiting, diarrhea, abdominal pain, pelvic pain, hematemesis, hematochezia, melena, hematuria, dysuria, frequency, urgency, headaches, dizziness, lightheadedness, visual changes, hearing changes, weakness, falls, syncope, trauma, travel history, sick contacts, or food/drug ingestions novel or new. All other review of systems are reported as negative by the patient on 12/11/2024. Physical Exam Constitutional: General: comfortable, coherent, cooperative. Wide awake and alert. Not confused, lethargic, or obtunded. Patient speaks in complete, fluent, and articulate sentences without pause, interruption, cough, or wheeze. HEENT: NC/AT. EOMI, PERRL. No nystagmus, gaze paresis, anisocoria, miosis, mydriasis, hyphema, chemosis, scleral icterus, conjunctivitis, or pterygium. No otorrhea, no rhinorrhea. No pharyngeal discharge or erythema. Neck: Supple, no stridor, bruit, goiter, or hepatojugular reflux. Jugular venous pressure is estimated to be 8 cm above the sternal angle of Lee, which is typically 5 cm above the level of the right atrium. Hence, there is no jugular venous distention noted on 12/11/2024. Lymphatics: No pre-post auricular, anterior/posterior cervical, supraclavicular/infraclavicular, axillary, epitrochlear, or inguinal adenopathy. Chest: Symmetric rise and fall with respirations. Non-tender to palpation. Heart: RRR, S1 and S2 noted. No S3 or S4 summation gallop noted. No tripartite friction rub. Grade II/ early systolic murmur @ LLSB without radiation to the carotids, axilla, or back, and which remains invariant in regards to the respiratory cycle. Lungs: Clear to auscultation and percussion. No audible expiratory wheeze, egophony, pectoriloquy, increase in tactile fremitus, or flatness/dullness to percussion at the bases. Abdomen: Soft, non-tender, non-distended. No rebound, guarding, Izquierdo's sign, or organomegaly. Bowel sounds auscultated in all 4 quadrants. Extremities: No clubbing, cyanosis, or edema. 2+ pedal pulses bilaterally. Skin: No decubitus ulcer, exanthem, or enanthem. Neurology: Alert and oriented in regards to person, place, time, and situation. DTR+ and symmetric. 5/5 motor strength in all 4 extremities, both proximally and distally. No myoclonus, tremors, or tics. Urology: No truong catheter. No urethral discharge. Psychiatry: Appropriate affect. Smiles occasionally. No homicidal/suicidal ideation. Results & Data Results & Data Vital Signs (Past 12 Hours) Vital Signs Temp Pulse Resp BP Pulse Ox O2 Del Method 12/11/24 15:00 36.8 C 95 H 18 96/63 L 96 Room Air 12/11/24 12:33 98 PG Care Time/CCT Total # of Minutes Spent Total Time Spent with Patient: Total time spent is greater than 50% in coordination of care (as documented) at patient's floor/unit and/or counseling patient: Coding Level of Care Code 97792 SUB INP/OBS CARE 2/35MIN Diagnoses Acute blood loss anemia D62 Lumbar stenosis with neurogenic claudication M48.062 Primary hypertension I10 Hypertension type: primary hypertension Hypothyroidism, unspecified type E03.9 Hypothyroidism type: unspecified Chronic kidney disease, stage 3a N18.31 Anxiety F41.9 Gastroesophageal reflux disease without esophagitis K21.9 Esophagitis presence: without esophagitis Obstructive sleep apnea syndrome G47.33 Sleep apnea type: obstructive Controlled type 2 diabetes mellitus without complication, without long-term current use of insulin E11.9 Diabetes mellitus correction insulin use: without correction use Diabetes mellitus complication status: without complication Elevated LDL cholesterol level E78.00 Restless leg syndrome G25.81 (3) Hypertension Hypertension type: primary hypertension Qualified Code(s): I10 - Essential (primary) hypertension (4) Hypothyroidism Hypothyroidism type: unspecified Qualified Code(s): E03.9 - Hypothyroidism, unspecified (7) Gastroesophageal reflux disease Esophagitis presence: without esophagitis Qualified Code(s): K21.9 - Gastro- esophageal reflux disease without esophagitis (8) Sleep apnea Sleep apnea type: obstructive Qualified Code(s): G47.33 - Obstructive sleep apnea (adult) (pediatric) (9) Diabetes mellitus type 2, controlled Diabetes mellitus correction insulin use: without correction use Diabetes mellitus complication status: without complication Qualified Code(s): E11.9 - Type 2 diabetes mellitus without complications
--- NOTE | 2024-12-12 08:05 | Orthopedic Progress Note ---
Date of Service December 12, 2024 Assessment & Plan (1) Status post lumbar spine surgery for decompression of spinal cord: (2) S/P lumbar spinal fusion: Plan 64-year-old woman POD#4 s/p L4-L5 Lateral Lumbar Interbody cage, with open Posterior Decompression L3-L4, L4-L5, L5-S1, posterolateral autograft, laminectomy L4-5, L5-S1 and placement of CT navigated posterior instrumentation L4-S1 for fusion. Surgical site pain has improved, and the radicular symptoms into the lower extremities remain improved. She is neurologically intact. Plan: 1. DVT prophylaxis w/ regular ambulation/mobilization. 2. Continue PT/OT today. Encourage regular mobilization. 3. Continue pain control regimen as current. Rx for Percocet sent to pharmacy. Patient has prescription for Flexeril at home. 4. Dressing change today prior to discharge. Showering per discharge instructions section; Explained to the patient that at this point she may wash the area with soap and water and clean it well with a dry towel. As long as there remains drainage, she should keep the surgical sites covered with a dressing, but once there is no longer drainage, then dressings are no longer needed. 5. Disposition -plan was to discharge home with outpatient therapy, but then patient worked with inpatient therapy today and reportedly did not do great with them, and now she prefers to go for a stay at inpatient rehab. Per case management, [facility] has a bed available this afternoon, and so she will be transferred to the [facility]. 6. F/u as scheduled on w/ Dr. Valente for first post-op visit. Subjective Patient is POD#4 s/p L4-L5 Lateral Lumbar Interbody cage, with open Posterior Decompression L3-L4, L4-L5, L5-S1, posterolateral autograft, laminectomy L4-5, L5-S1 and placement of CT navigated posterior instrumentation L4-S1 for fusion by Dr. Valente on 12/09/2024. Operative site pain is improved. Denies CP, SOB, N/V, or new LE paresthesia. She has continued to work with PT/OT. She says that her is ready for her to come home and she feels she will be ready for discharge later today. Update: Patient worked with therapy today and reportedly did not do great with them, and now she prefers to go for a stay at inpatient rehab. Review of Systems All systems reviewed & are unremarkable except as noted in HPI & below. Physical Exam GENERAL: Speech and cognition is intact. Mood and affect is appropriate. Does not appear in acute distress. Sitting on EOB, appears relatively comfortable. HEAD: Normocephalic; atraumatic. CHEST: Regular chest respiration and excursion. EXTREMITIES: Sensation intact to light touch of the bilateral L2-S1 dermatomes. 5/5 strength L1-S2 myotomes; No deficits noted. BACK: Dressings intact to lumbar spine and right flank; no saturation noted. NEURO: Easily aroused from sleep. Alert and oriented x 3. Results & Data Results & Data Laboratory Results Laboratory Results - last 24 hr 12/11/24 12/11/24 12/12/24 07:16 11:39 07:30 WBC 9.25 RBC 2.52 L Hgb 7.4 L Hct 22.9 L MCV 90.9 MCH 29.4 MCHC 32.3 RDW Std Deviation 46.7 H RDW Coeff of Patrice 14.0 Plt Count 168 MPV 10.8 Immature Gran % (Auto) 0.5 Neut % (Auto) 75.0 Lymph % (Auto) 12.8 [place] % (Auto) 9.2 Eos % (Auto) 2.2 Baso % (Auto) 0.3 Neut # (Auto) 6.94 H Lymph # (Auto) 1.18 L [place] # (Auto) 0.85 H Eos # (Auto) 0.20 Baso # (Auto) 0.03 Immature Gran # (Auto) 0.05 RBC Morphology Unremarkable POC Glucose 125 H 91 12/12/24 07:46 WBC RBC Hgb Pending Hct MCV MCH MCHC RDW Std Deviation RDW Coeff of Patrice Plt Count MPV Immature Gran % (Auto) Neut % (Auto) Lymph % (Auto) [place] % (Auto) Eos % (Auto) Baso % (Auto) Neut # (Auto) Lymph # (Auto) [place] # (Auto) Eos # (Auto) Baso # (Auto) Immature Gran # (Auto) RBC Morphology POC Glucose Diagnostic Findings . PG Care Time/CCT Total # of Minutes Spent Total Time Spent with Patient: Total time spent is greater than 50% in coordination of care (as documented) at patient's floor/unit and/or counseling patient: Coding Level of Care Code 49417 Post Operative Follow-Up Diagnoses Status post lumbar spine surgery for decompression of spinal cord Z98.890 S/P lumbar spinal fusion Z98.1
--- NOTE | 2024-12-12 08:05 | Discharge Summary ---
Date of Service December 12, 2024 Admission HPI (Per Admitting) 11/17/24 OV: "Patient returns for follow-up, she has her upcoming surgery in December relative to the lumbar spine. She reports continued numbness in the lower extremities when she does any prolonged standing or walking more so on the right leg. She is accompanied with her today who had not been here on prior visits. No changes on examination, no focal motor weakness. Intact strength for ambulation. Review of MRI images from [facility] of the lumbar spine from June 13, 2024, this is my separate interpretation, this reveals the labeling of the levels to be an accurate, when looking at the radiographs, the patient has a lumbarization of S1, the true first level with some limited degenerative spondylolisthesis is L4-5, she has what I would consider high-grade stenosis at L3-4 L4-5 and L5-S1, but this is labeled as L2-3, L3-4 and L4-5 on the MRI reports. 4 views of the lumbar spine taken for 06/27/24 office reveal the numbering of the levels on the MRIs to be inaccurate, the patient has a transitional segment at S1 with a lumbarized, according to my thoughts the patient has degenerative spondylolisthesis at the L4-5 level but this is labeled as L3-4 on the MRIs, there is 20 degrees of levoscoliosis, and grade 1 anterolisthesis measuring 5 mm, this is in comparison to the MRI which reveals only minimal if any 1 to 2 mm of general spinal listhesis. Impression: Multilevel lumbar stenosis with degenerative spondylolisthesis, continuation of low back pain and lower extremity symptoms. Plan: Today I reviewed the patient's medical history along with her complaints as previously noted and revisited today and discussion. In addition the patient's was not present on previous visit all these details including the radiographs and MRI were reviewed in great detail using a model I then explained the nature of the problems and also a discussion of the planned surgical treatments. This included discussion of decompression at the lower 3 lumbar levels at L3-4, L4-5 and L5-S1. Also planned lateral cage placement at the L4-5 level along with posterior instrumentation fusion at this level. I also discussed the fact that if on decompression I feel the L5-S1 level needs to be stabilized we will be performing a posterior fusion and instrumentation. We discussed the nature of the different aspects of the procedure, hospital postoperative course, also touched upon recommendations of decreased bending lif ting twisting moving into the future due to the multilevel findings and also touching upon weight reduction that is something that would be beneficial for her long-term along with the fact that there may be additional needed surgical procedures for fusion and/or stabilization. They are in agreement with this plan and will see the patient in the postoperative period." Admission Exam (Per Admitting) 05/28/24: Exam reveals her to have pain indicated lumbosacral junction, she had difficulty raising up on both toes but not on the heels with ankle dorsiflexion. While sitting I could get trace knee reflexes absent ankle reflexes, intact strength for EHL and plantarflexion to manual testing, straight leg raise causes low back pain only bilaterally. 11/17/24: No changes on examination, no focal motor weakness. Intact strength for ambulation. Principal Diagnosis Same as "Discharge Diagnosis" noted below under Discharge Instructions. Discharge Exam GENERAL: Speech and cognition is intact. Mood and affect is appropriate. Does not appear in acute distress. Sitting on EOB, appears relatively comfortable. HEAD: Normocephalic; atraumatic. CHEST: Regular chest respiration and excursion. EXTREMITIES: Sensation intact to light touch of the bilateral L2-S1 dermatomes. 5/5 strength L1-S2 myotomes; No deficits noted. BACK: Dressings intact to lumbar spine and right flank; no saturation noted. NEURO: Easily aroused from sleep. Alert and oriented x 3. Discharge Data Consultations 12/08/24 17:18 Consult Hospitalist Routine Procedures Performed Operation Date: 12/08/24 07:30 Actual Procedures p L4-L5 Laminectomy with Interbody Cage and Lateral Lumbar Interbody Fusion and Open Posterior Instrumentation, Decompression L3-L4, L4-L5, L5-S1 Transitional Segmentation and Autograft, Spinal Cord Monitoring - Jose Valente MD Ordered Studies 12/08/24 07:30 CT lumbar spine wo con Routine [place] lumbar spine 2-3V Routine Hospital Course (1) S/P lumbar spinal fusion: (2) Status post lumbar spine surgery for decompression of spinal cord: Plan On December 08, 2024 Annette arrived at [facility] operating room and underwent an L4-L5 Lateral Lumbar Interbody cage, with open Posterior Decompression L3-L4, L4-L5, L5-S1, posterolateral autograft, laminectomy L4-5, L5-S1 and placement of CT navigated posterior instrumentation L4-S1 for fusion without complications. Patient had general anesthesia for the procedure. Patient was admitted to the general orthopedic floor in stable condition p ostoperatively for pain control and mobilization with physical therapy; they safely and properly performed the ADL tasks demonstrated by PT/OT and met all goals, but she did struggle a bit with mobility. Pain was controlled with IV pain medication, with a transition to oral medications. Normal return of bowel and bladder function. They worked with therapy, vital signs were acceptable, no need for transfusion, deemed safe for discharge to an inpatient rehab facility. Per case management a.m. of 12/12/2024, "OT worked with patient today and patient is now changing her mind about rehab. Met with patient at bedside. She was agreeable, but asked if she can stay until Sunday . Explained that she is ready for discharge today and the discharge order is already written. List of facilities provided and she chose [facility]. Referral given to [facility]ia[facility]. Patient has Medicare, so no auth required. [facility] can offer a bed this afternoon after 1500. Updated her , Maurizio. He will transport shortly after 1500. Research Assistant and RN aware. Faxed to [facility] to cancel walker and returned to supply closet." Patient was then discharged to [facility] rehab facility via transport by her . Patient will follow-up with Dr. Valente in the orthospine clinic in approximately 2 weeks, as scheduled, for postoperative care. PG Care Time/CCT Total # of Minutes Spent Total Time Spent with Patient: Total time spent is greater than 50% in coordination of care (as documented) at patient's floor/unit and/or counseling patient: Discharge Plan Discharge Items Patient Disposition: Transfer Inpatient Rehab Fac Reason For Visit: Degenerative Spondylolisthesis, Lumbar Radiculopat Discharge Diagnosis: s/p lumbar spinal fusion Activity: As commented below Lifting: No more than 10 pounds Bathing: May shower/bathe in 3 days Weightbearing: Full weightbearing Non-emergency contact: Surgeon Call non-emergency contact if: your pain is worsening and your wound has increased drainage Follow-up/Referrals: Isak Bruce MD [Primary Care Provider] - Jose Valente MD [Surgeon] - 12/24/24 11:30 am (has appt. 12/24/24 @ 11:30) Diet: Regular Addtl Attending Provider Instructions: May shower on 3rd day after surgery. You can wash the incision and surgical site with soap and water briefly and then blot dry with a clean towel/cloth. Cover with a new, sterile dry dressing. If unable to change your dressing, then leave hospital dressing intact and cover the area for showering. Do NOT soak incision. No strenuous activity, lifting, or exercise until further instructed. Use the prescribed pain medication, and/or [id number] Tylenol, as needed for pain relief -- follow directions on the bottle; limit Tylenol to 4,000 mg maximum in a 24-hour period. No use of NSAIDs (i.e ibuprofen/Advil/Motrin, naproxen/Aleve, etc.) for at least 2 months after surgery. Pending Studies at Discharge: No Stand-Alone Forms: [employer], Smoking Cessation Skilled Items Patient informed of condition?: Yes DNR: No Discharge Level of Care: Acute rehab Communicable Disease: No Discharge Prognosis: Improving Lines: None Urinary Catheter: No Medications and DC Order Prescriptions: New oxycodone-acetaminophen [Percocet] 5-325 mg Tablet 1 tab PO Q6H PRN (Reason: pain) Qty: 24 0RF Continued sumatriptan succinate [Imitrex] 25 mg tablet 25 mg PO .COMPLEX PRN (Reason: Migraine Headache) Qty: 9 5RF Rx Instructions: 25 mg PO daily, may repeat in 2 hours. Max dose of 200mg/day; max 9 tabs per month montelukast 10 mg tablet 10 mg PO QAM Qty: 90 3RF amlodipine 5 mg tablet 5 mg PO QAM Qty: 90 3RF metformin 500 mg tablet 1,000 mg PO QAM Qty: 180 3RF losartan 100 mg tablet 100 mg PO HS Qty: 90 3RF Rx Instructions: called in--pharmacy says that they never received allopurinol 300 mg tablet 300 mg PO QAM Qty: 90 3RF gabapentin 300 mg capsule 600 mg PO TID Qty: 540 1RF amitriptyline 25 mg tablet 25 mg PO HS Qty: 90 3RF cyclobenzaprine 10 mg tablet 10 mg PO TID PRN (Reason: muscle spasm) Qty: 90 5RF acetaminophen 325 mg capsule 650 mg PO PRN PRN (Reason: Pain) cetirizine [Zyrtec] 10 mg tablet 10 mg PO QAM metoprolol succinate 25 mg tablet extended release 24 hr 25 mg PO DAILY Qty: 90 3RF rabeprazole [AcipHex] 20 mg tablet,delayed release (DR/EC) 20 mg PO HS Patient Comments: hasn't started yet spironolacton-hydrochlorothiaz 25-25 mg tablet 1 tab PO QAM ropinirole 0.25 mg tablet 0.25 mg PO UD Rx Instructions: 0.25 mg PO dinner and 2 tablets po in evening ; ezetimibe [Zetia] 10 mg tablet 10 mg PO HS duloxetine 60 mg capsule,delayed release(DR/EC) 60 mg PO HS thyroid (pork) 60 mg tablet 60 mg PO HS dapagliflozin propanediol 10 mg tablet 10 mg PO QAM Discontinued ibuprofen 200 mg tablet 800 mg PO TID PRN (Reason: Pain) oxycodone 10 mg tablet 10 mg PO Q6H PRN (Reason: pain) Qty: 120 0RF Discharge Orders: Discharge Order (Routine); Ordered 12/12/24 Ordered By: Juan Barragan/Other Patient Handouts: DVT Post Op Prevention Admission Data Admit Date/Time: 12/08/24 17:13 Attending Provider: Jose Valente Admit Provider: Jose Valente Primary Care Provider: Isak Bruce Other Providers: Stu Stapleton; [facility] Other Interventions: Discharge Summary Assessment (RN) Last Done: 12/12/24 11:07
[2024-12-12 14:17] VITALS: RESP 16; TEMP 98.6
[2024-12-12 14:27] VITALS: BP 100/67; PULSE 98; O2SAT 94
--- NOTE | 2024-12-12 17:05 | Hospitalist Progress Note ---
Date of Service December 12, 2024 Assessment & Plan (1) Acute blood loss anemia: Plan: Patient's Hb level declined as shown below: cf., Hb 8.0 g/dL (12/09/2024, 7:35am)(admission). cf., Hb 6.9 g/dL (12/10/2024, 8:17am)(pre-transfusion). cf., Hb 7.8 g/dL (12/10/2024, 4:21pm)(post-transfusion). cf., normal baseline Hb range, 12.6 g/dL (06/16/2024, 11:57am) to 11.6 g/dL (11/17/2024, 1:34pm). Patient reports no mucosal bleeding and remains hemodynamically stable. Patient subsequently received 1 unit of packed RBC transfusion on 12/10/2024, and has demonstrated an adequate increase in Hb level post-transfusion on 12/10/2024 to 7.8 g/dL (12/10/2024, 4:21pm), and which subsequently declined to 7.4 g/dL (12/11/2024, 7:16am). I will check repeat Hb level in the 12/12/2024 am. (2) Lumbar stenosis with neurogenic claudication: Plan: Defer to NeuroSurgery Service. (3) Hypertension: Plan: Essential HTN. Yesterday, patient was hypotensive with BP 82/45 (12/09/2024, 1:58pm), repeat BP 79/45 (12/09/2024, 4:54pm). Gave 1 liter of 0.9% NS @ 1000 mL/hr (12/09/2024, 5:19pm), and BP increased to 90/52 (12/09/2024, 6:40pm). Today, patient's BP remains low normal at 97/60 (12/10/2024, 6:14am) and 96/63 (12/11/2024, 3:00pm). Continue to check BP qshift and strive to maintain MAP > 65 mm Hg. (4) Hypothyroidism: Plan: Patient has no goiter, lid lag, or proptosis and appears to be euthyroid on home-scheduled [place] Thyroid 60mg PO qhs with last screening TSH normal at 0.518 uIU/mL (09/19/2024, 8:49am). (5) Chronic kidney disease, stage 3a: (6) Anxiety: (7) Gastroesophageal reflux disease: (8) Sleep apnea: (9) Diabetes mellitus type 2, controlled: Plan: Well-controlled with serum glucose 114 mg/dL (12/09/2024, 7:35am) and fingerstick glucose 117 mg/dL (12/11/2024, 7:42am) on carbohydrate consistent diet, lispro insulin sliding scale qac + qhs, and POC glucose qac + qhs. (10) Elevated LDL cholesterol level: (11) Restless leg syndrome: Admission and Anticipated Discharge Date Admission Date: December 08, 2024 Subjective "I feel fine. I have no complaints today at all. I got transfused with one bag of blood yesterday. I am fine." Review of Systems Constitutional: Negative for antecedent/coincident fevers, chills, diaphoresis, cough, wheeze, sore throat, hemoptysis, chest pains, palpitations, pleurisy, nausea, vomiting, diarrhea, abdominal pain, pelvic pain, hematemesis, hematochezia, melena, hematuria, dysuria, frequency, urgency, headaches, dizziness, lightheadedness, visual changes, hearing changes, weakness, falls, syncope, trauma, travel history, sick contacts, or food/drug ingestions novel or new. nnnnnnnnnnnnnnnnnnnnnnnnnnnnnnnnnnnnnnnnnnnnnnnnnnnnnnnnnnnnnnnnnnnnnnnnnnnnnnnn nnnnnnnnnnnnnnnnnnnnnnnnnnnnnnnnnn Results & Data Results & Data Vital Signs (Past 12 Hours) Vital Signs Temp Pulse Resp BP BP Pulse Ox O2 Del Method 12/12/24 14:26 98 H 16 100/67 94 Room Air 12/12/24 14:16 37.0 C 96 H 16 89/60 L 93 Room Air 12/12/24 11:45 91 12/12/24 08:50 36.7 C 113 H 20 96/57 L 97 Room Air 12/12/24 07:24 37.1 C 100 H 18 95/63 L 93 Room Air PG Care Time/CCT Total # of Minutes Spent Total Time Spent with Patient: Total time spent is greater than 50% in coordination of care (as documented) at patient's floor/unit and/or counseling patient: Coding Level of Care Code 49651 SUB INP/OBS CARE 2/35MIN Diagnoses Acute blood loss anemia D62 Lumbar stenosis with neurogenic claudication M48.062 Primary hypertension I10 Hypertension type: primary hypertension Hypothyroidism, unspecified type E03.9 Hypothyroidism type: unspecified Chronic kidney disease, stage 3a N18.31 Anxiety F41.9 Gastroesophageal reflux disease without esophagitis K21.9 Esophagitis presence: without esophagitis Obstructive sleep apnea syndrome G47.33 Sleep apnea type: obstructive Controlled type 2 diabetes mellitus without complication, without long-term current use of insulin E11.9 Diabetes mellitus ad terminal makeup operator insulin use: without ad terminal makeup operator use Diabetes mellitus complication status: without complication Elevated LDL cholesterol level E78.00 Restless leg syndrome G25.81 (3) Hypertension Hypertension type: primary hypertension Qualified Code(s): I10 - Essential (primary) hypertension (4) Hypothyroidism Hypothyroidism type: unspecified Qualified Code(s): E03.9 - Hypothyroidism, unspecified (7) Gastroesophageal reflux disease Esophagitis presence: without esophagitis Qualified Code(s): K21.9 - Gastro- esophageal reflux disease without esophagitis (8) Sleep apnea Sleep apnea type: obstructive Qualified Code(s): G47.33 - Obstructive sleep apnea (adult) (pediatric) (9) Diabetes mellitus type 2, controlled Diabetes mellitus mcc insulin use: without ad terminal makeup operator use Diabetes mellitus complication status: without complication Qualified Code(s): E11.9 - Type 2 diabetes mellitus without complications
== END 2024-12-12 15:10 | DRG 427 ==
LOC: ASU 05:27 → 3N 17:13

== ENCOUNTER 2025-01-26 15:37 | Inpatient (IN) ==
--- NOTE | 2025-01-26 15:56 | Emergency Department Note ---
Impression & Plan Sepsis, Acute cholecystitis, Transaminitis, Elevated lipase, Leukocytosis, Hyperbilirubinemia, Elevated lactic acid level, Elevated procalcitonin, SANTINO (acute kidney injury), Acute hypokalemia, Acute UTI (urinary tract infection) ED Provider Note HISTORY OF PRESENT ILLNESS: Patient is a 64-year-old female presenting with abdominal pain. Patient reports that Sunday (4 days ago), she developed pain in her lower abdomen. She thought it was food poisoning, but she did not have any vomiting or diarrhea. Reports symptoms continued throughout the weekend, and she just could not take it anymore, prompting presentation to the emergency department today. She denies any nausea or vomiting. Denies any chest pain or shortness of breath. Denies any fevers. She states that she cannot move, walk or sneeze without having significant pain in her abdomen. She reports that "I had a ruptured appendix in the past and this feels exactly similar." Denies any lightheadedness or dizziness. Denies any DVT or PE history. Not on any anticoagulation or antiplatelet therapies. She denies any dysuria or hematuria. She does report that her urine is dark orange in color. She reports feeling very weak. She has not taken anything for the pain today. Reports her last bowel movement was overnight and it was slightly looser than normal. Denies any blood in her stool ROS: as above PHYSICAL EXAM: Constitutional: Patient appears in no acute distress. HENT: Head: Normocephalic and atraumatic. Eyes: EOMI, PERRL Mouth/Throat: Mucous membranes moist. Neck: Trachea midline. Neck supple. Cardiovascular: Tachycardic with regular rhythm. No murmurs, rubs or gallops. Intact distal pulses. Pulmonary/Chest: No respiratory distress. Breath sounds clear and equal bilaterally. No wheezes or rales. Abdominal: Abdomen soft. Patient is diffusely tender to palpation. She is guarding on examination and peritonitic. Musculoskeletal: No edema, tenderness or deformity noted. Skin: Warm and dry. No rash, erythema, pallor or cyanosis Psychiatric: Appropriate mood and affect for situation. Neurological: Alert and keenly responsive. CN II-XII grossly intact, moving all extremities equally and fully. MDM: - Vitals signs showed hypertension and tachycardia - History obtained via patient. History as above. - Chronic conditions affecting care: CKD; primary hyperparathyroidism; hypothyroidism; HTN; DM-2; GERD - Differential diagnoses include, but are not limited to: Biliary colic; cholangitis; cholecystitis; hepatitis; right lower lobe pneumonia; pulmonary embolism; pyelonephritis; herpes zoster; perforated duodenal ulcer - Order placed for continuous cardiac monitoring. At this time, monitor showed rate of 126 bpm with normal sinus rhythm, per my interpretation. - External medical records reviewed. Primary care visit note dated 12/25/2024 was reviewed. Patient was seen for follow-up post lumbar spinal fusion. - EKG image interpreted by myself showed normal sinus rhythm. Rate tachycardic at 123 bpm. QT 424. No acute ischemic changes - Laboratory workup interpreted by myself showed leukocytosis (WBC 11.69); anemia (Hgb 11.5); normal PT/INR; slight hyponatremia (Na 135); hypokalemia (K 3.4); SANTINO (Cr 1.28); elevated lactate (2.4); transaminitis (AST 101; ALT 186); hyperbilirubinemia (total bilirubin 3.3); normal troponin; elevated lipase (202); elevated procalcitonin (2.51) - Viral respiratory panel negative - Blood cultures obtained - Patient initially given 4 mg IV zofran and 4 mg IV morphine for symptomatic management - Patient given 2L NS. Patient's sepsis fluid calculation based on ideal body weight is 1636.20 mL - IV zosyn administered - CTA abdomen/pelvis with IV contrast showed gallbladder distention with moderate thickening, pericolonic inflammatory change and inflammatory change extending inferiorly and into the pelvis concerning for acute cholecystitis. Right upper quadrant ultrasound recommended. - CXR image reviewed by myself was negative for pneumonia, per my interpretation. - Discussed case with [facility] general surgeon on-call, Dr. Pritchett, at 17:57. He recommends transfer as it sounds like the patient requires an ERCP. Recommends right upper quadrant ultrasound. - RUQ US ordered - Discussed case with patient and need for transfer for further specialty care. She was agreeable to transfer to [facility] - Discussed case with [facility] hospitalist, Dr. Rodarte, and GI physician, Dr. Pate at 18:51. On discussion of patient's laboratory and imaging workup, they reported that it is likely just acute cholecystitis. They report that the patient being afebrile it may just be secondary to her gallbladder being infected and so dilated. They state that if the ultrasound shows a dilated common bile duct, they will accept the patient. Otherwise would recommend obtaining MRCP to see if the patient needs an ERCP or just a cholecystectomy with general surgery - RUQ US showed evidence of acute cholecystitis with a normal common bile duct measurement at 53 mm. Rose was called and updated on the ultrasound reading. - I was contacted by [facility] history teacher at 2006. They recommend that I reconsult general surgery as this patient just likely has acute cholecystitis - Discussed case again with Dr. Pritchett at 20:06. He agrees with antibiotic therapy and admission to medicine - Discussed case with case management for need for admission - UA shows evidence of infection, which could also be patient's source of sepsis. - Hospitalist consulted for admission - Patient to be admitted to [facility] service for further evaluation and management. I have personally spent 62 minutes of critical care time in the direct management of this patient. This includes bedside care, interpretation of diagnostic studies, and testing, discussion with consultants, patient, and family members, and other required patient management activities. This 62 minutes is in excess of all separately billable procedures. ASSESSMENT AND PLAN: Diagnosis: sepsis; acute cholecystitis; choledocholithiasis; transaminitis; hyperbilirubinemia; SANTINO; elevated procalcitonin; elevated lactate; elevated lipase; leukocytosis; acute hypokalemia; acute UTI Plan: admit Past Med/Surg History Problem List (Updated 01/26/25 @ 20:40 by Zachary Horne PA-C) Cholecystitis Acute UTI (urinary tract infection) (Acute) Acute hypokalemia (Acute) SANTINO (acute kidney injury) (Acute) Elevated procalcitonin (Acute) Elevated lactic acid level (Acute) Hyperbilirubinemia (Acute) Leukocytosis (Acute) Elevated lipase (Acute) Transaminitis (Acute) Acute cholecystitis (Acute) Sepsis (Acute) Acute blood loss anemia S/P lumbar spinal fusion Status post lumbar spine surgery for decompression of spinal cord (~12/2024) Tachycardia Elevated LDL cholesterol level Hypertension controlled, stable per pt LVH (left ventricular hypertrophy) Abnormal ECG Hypothyroidism Lumbar stenosis with neurogenic claudication Degenerative spondylolisthesis Primary hyperparathyroidism Chronic kidney disease, stage 3a Endometrial mass Lumbar radiculopathy, chronic Decreased hearing of 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 Encounter for pre-operative examination Thickened endometrium Postmenopausal bleeding Allergic rhinitis Anxiety Arthritis Gastroesophageal reflux disease Hirsutism Restless legs syndrome Sleep apnea No device Vitamin D deficiency Medical History Diabetes mellitus type 2, controlled NIDDM Osteoarthritis of knees, bilateral Lumbar stenosis with neurogenic claudication Hypothyroidism Hypercholesteremia Hx of non-Hodgkin's lymphoma (2004) s/p chemo/xrt (2004), subsequent prophylactic chemo (4932-3434) "Not active" per pt Degenerative spondylolisthesis Postmenopausal Hx of migraines last was approx. 9 months Primary hyperparathyroidism Hx of endometriosis Restless leg syndrome Sleep apnea no cpap - used in past/ can't tolerate Spinal stenosis GERD (gastroesophageal reflux disease) controlled, stable per pt CKD (chronic kidney disease) sees neph dr. cerna Arthritis Anxiety claustrophobia in MRI/CT scans Allergic rhinitis Hx of gout Seasonal allergies Asthma Allergy induced, stable-states has not needed rescue inhaler for several months Surgical History History of hysteroscopy (07/2023) S/P epidural steroid injection History of dilatation and curettage x3 History of esophagogastroduodenoscopy (EGD) History of colonoscopy [place]ba teeth extracted History of oral surgery (2011) Gum surgery for excessive bone growth (2011) History of appendectomy (2014) H/O abdominal surgery (2003) Exploratory surgery r/t non hodgkin's lymphoma (2003) Family History Mother Arthritis Heart disease Father Heart disease Diabetes Hypertension Other No family history of adverse response to anesthesia No family history of bleeding disorder Denies family history of Ovarian cancer Breast cancer Colorectal cancer Social History Smoking Status: Never smoker Second Hand Exposure: No; Do You Dip or Chew Tobacco: No; Hx Alcohol Use: Yes Hx Substance Use: No Preferred Language: Portuguese Communication Ability: Effective Hearing Ability: Normal Landscape Supervisor Required: No Beliefs That Will Affect Care: None marital status: Current Living Situation: Spouse current occupational status: retired current occupation: [employer] at [employer] Feels Safe at Home: Yes Childhood Exposure to Second-Hand Smoke: No Diet: regular caffeine: Yes (12 oz coke daily) Dental Care, Regularly: Yes Physical Activity Frequency: Does not Exercise Seatbelt Use: always Sunscreen Use: No Gender Identity: Female Assistive Devices: Cane Allergies Allergies Allergy/AdvReac Type Severity Reaction Status Date / Time atorvastatin [From Lipitor] AdvReac Intermediate Myalgias Verified 12/30/24 08:41 (see comments) simvastatin [From Zocor] AdvReac Intermediate Myalgias Verified 12/30/24 08:41 [id number] Reductase AdvReac Intermediate Myalgias Verified 12/30/24 08:41 Inhibitor [Jpkwitk-[id number]-[id number] Reductase Inhibitor] Home Meds Home Medications Medication Instructions Recorded Confirmed acetaminophen 325 mg capsule 650 mg PO PRN PRN Pain 07/23/19 12/30/24 cetirizine 10 mg tablet (Zyrtec) 10 mg PO QAM 07/23/19 12/30/24 dapagliflozin propanediol 10 mg 10 mg PO QAM 11/06/24 12/30/24 tablet ezetimibe 10 mg tablet (Zetia) 10 mg PO HS 11/06/24 12/30/24 rabeprazole 20 mg tablet,delayed 20 mg PO HS 11/06/24 12/30/24 release (AcipHex) ropinirole 0.25 mg tablet 0.25 mg PO UD 11/06/24 12/30/24 thyroid (pork) 60 mg tablet 60 mg PO HS 11/06/24 12/30/24 Previous Rx's Medication Instructions Recorded cyclobenzaprine 10 mg tablet 10 mg PO TID PRN muscle spasm #90 06/19/23 tabs metformin 500 mg tablet 1,000 mg (2 x 500 mg) PO QAM #180 05/05/24 tabs allopurinol 300 mg tablet 300 mg PO QAM #90 tabs 08/27/24 gabapentin 300 mg capsule 600 mg (2 x 300 mg) PO TID #540 09/08/24 caps metoprolol succinate 25 mg 25 mg PO DAILY #90 tabs 11/27/24 tablet,extended release 24 hr oxycodone-acetaminophen 5 mg-325 1 tab PO Q6H PRN pain #24 tabs 12/11/24 mg tablet (Percocet) montelukast 10 mg tablet 10 mg PO QAM #90 tabs 12/24/24 losartan 50 mg tablet 50 mg PO DAILY #90 tabs 01/21/25 spironolactone 25 1 tab PO QAM #90 tabs 01/21/25 mg-hydrochlorothiazide 25 mg tablet Results & Data (ED) Vital Signs Vital Signs - 24 hr 01/26/25 15:37 01/26/25 15:38 01/26/25 16:43 Temperature 37 C Temperature Source Temporal Artery Scan Pulse Rate 135 H Pulse Rate [Left Brachial] 100 H Pulse Rate from SpO2 Sensor Pulse Rhythm [Left Brachial] Regular Pulse Strength [Left Brachial] Normal Respiratory Rate 20 20 Respiratory Effort / Characteristics Non-Labored Spontaneous Non-Labored Respiratory Depth Normal Normal Respiratory Pattern Regular Blood Pressure 145/87 H Blood Pressure [Left Arm] 119/73 Blood Pressure Mean 106 Blood Pressure Mean [Left Arm] 88 Blood Pressure Position [Left Arm] Lying Pulse Oximetry 94 99 91 Oxygen Delivery Method Room Air Room Air Room Air Sepsis Recent Fever Within 48 Hours No Sepsis New/Unexplained Change in Mental Status No Sepsis Action Taken by Nursing No Action Required 01/26/25 16:58 01/26/25 17:13 01/26/25 17:15 Temperature Temperature Source Pulse Rate Pulse Rate [Left Brachial] 95 H 100 H 93 H Pulse Rate from SpO2 Sensor Pulse Rhythm [Left Brachial] Regular Regular Regular Pulse Strength [Left Brachial] Normal Normal Normal Respiratory Rate 20 20 22 Respiratory Effort / Characteristics Non-Labored Non-Labored Non-Labored Respiratory Depth Normal Normal Normal Respiratory Pattern Regular Regular Regular Blood Pressure Blood Pressure [Left Arm] 104/65 99/67 L 119/76 Blood Pressure Mean Blood Pressure Mean [Left Arm] 78 77 90 Blood Pressure Position [Left Arm] Lying Lying Lying Pulse Oximetry 91 94 97 Oxygen Delivery Method Room Air Room Air Room Air Sepsis Recent Fever Within 48 Hours Sepsis New/Unexplained Change in Mental Status Sepsis Action Taken by Nursing 01/26/25 17:30 01/26/25 17:45 01/26/25 18:45 Temperature Temperature Source Pulse Rate 94 H Pulse Rate [Left Brachial] 95 H 101 H Pulse Rate from SpO2 Sensor Pulse Rhythm [Left Brachial] Regular Regular Pulse Strength [Left Brachial] Normal Normal Respiratory Rate 19 18 21 Respiratory Effort / Characteristics Non-Labored Non-Labored Respiratory Depth Normal Normal Respiratory Pattern Regular Blood Pressure 131/74 Blood Pressure [Left Arm] 131/74 132/98 Blood Pressure Mean 80 Blood Pressure Mean [Left Arm] 93 109 Blood Pressure Position [Left Arm] Lying Lying Pulse Oximetry 94 95 96 Oxygen Delivery Method Room Air Room Air Sepsis Recent Fever Within 48 Hours Sepsis New/Unexplained Change in Mental Status Sepsis Action Taken by Nursing 01/26/25 18:48 01/26/25 19:11 01/26/25 19:20 Temperature Temperature Source Pulse Rate 88 94 H 92 H Pulse Rate [Left Brachial] Pulse Rate from SpO2 Sensor 91 H Pulse Rhythm [Left Brachial] Pulse Strength [Left Brachial] Respiratory Rate 23 22 Respiratory Effort / Characteristics Respiratory Depth Respiratory Pattern Blood Pressure 132/100 144/106 H Blood Pressure [Left Arm] Blood Pressure Mean 112 114 Blood Pressure Mean [Left Arm] Blood Pressure Position [Left Arm] Pulse Oximetry 98 99 Oxygen Delivery Method Sepsis Recent Fever Within 48 Hours Sepsis New/Unexplained Change in Mental Status Sepsis Action Taken by Nursing 01/26/25 19:30 01/26/25 19:40 01/26/25 19:50 Temperature Temperature Source Pulse Rate 89 93 H 93 H Pulse Rate [Left Brachial] Pulse Rate from SpO2 Sensor 90 92 H 93 H Pulse Rhythm [Left Brachial] Pulse Strength [Left Brachial] Respiratory Rate 24 16 24 Respiratory Effort / Characteristics Respiratory Depth Respiratory Pattern Blood Pressure 142/92 H 116/88 133/85 Blood Pressure [Left Arm] Blood Pressure Mean 115 102 105 Blood Pressure Mean [Left Arm] Blood Pressure Position [Left Arm] Pulse Oximetry 96 Oxygen Delivery Method Sepsis Recent Fever Within 48 Hours Sepsis New/Unexplained Change in Mental Status Sepsis Action Taken by Nursing 01/26/25 20:00 01/26/25 20:45 Temperature Temperature Source Pulse Rate 89 Pulse Rate [Left Brachial] 95 H Pulse Rate from SpO2 Sensor 89 Pulse Rhythm [Left Brachial] Regular Pulse Strength [Left Brachial] Normal Respiratory Rate 22 20 Respiratory Effort / Characteristics Non-Labored Respiratory Depth Normal Respiratory Pattern Regular Blood Pressure 124/78 Blood Pressure [Left Arm] 118/73 Blood Pressure Mean 89 Blood Pressure Mean [Left Arm] 88 Blood Pressure Position [Left Arm] Lying Pulse Oximetry 95 Oxygen Delivery Method Room Air Sepsis Recent Fever Within 48 Hours Sepsis New/Unexplained Change in Mental Status Sepsis Action Taken by Nursing Laboratory Data 01/26/25 15:57 01/26/25 15:57 Lab Results 01/26/25 01/26/25 01/26/25 Range/Units 15:57 15:58 16:01 WBC 11.69 H (4.8-10.8) K/ul RBC 4.03 L (4.20-5.40) M/uL Hgb 11.5 L (12.0-16.0) g/dl POC Hgb 12.6 (12.0-16.0) g/dl Hct 35.6 L (37.0-47.0) % POC Hct 37 (37-47) % MCV 88.3 (80.0-100.0) fL MCH 28.5 (25.0-34.0) pg MCHC 32.3 (32.0-36.0) g/dL RDW Std Deviation 44.3 (36.4-46.3) fL RDW Coeff of Patrice 13.7 (11.5-14.5) % Plt Count 244 (130-400) K/uL MPV 10.5 (9.4-12.4) fL Immature Gran % (Auto) 0.6 % Neut % (Auto) 87.2 % Lymph % (Auto) 4.8 % [place] % (Auto) 6.1 % Eos % (Auto) 1.0 % Baso % (Auto) 0.3 % Neut # (Auto) 10.20 H (1.40-6.50) K/uL Lymph # (Auto) 0.56 L (1.20-3.40) K/uL [place] # (Auto) 0.71 H (0.11-0.59) K/uL Eos # (Auto) 0.12 (0.00-0.50) K/uL Baso # (Auto) 0.03 (0.00-0.20) K/uL Immature Gran # (Auto) 0.07 (0.01-0.20) K/uL PT 11.3 (9.0-12.0) Seconds INR 1.0 (0.9-1.1) POC Sodium 136 (135-144) mmol/L Sodium 135 L (136-145) mmol/L POC Potassium 3.4 (3.3-5.0) mmol/L Potassium 3.4 L (3.5-5.1) mmol/L POC Chloride 101 (101-112) mmol/L Chloride 100 (98-107) mmol/L Carbon Dioxide 24 (21-32) mmol/L POC Total CO2 24 (24-31) mmol/L Anion Gap 11 (3-11) POC Anion Gap 16.0 (16-25) mmol/L POC BUN 20 H (7-18) mg/dl BUN 21 (6-23) mg/dl Creatinine 1.28 H (0.6-1.2) mg/dl POC Creatinine 1.4 H (0.6-1.3) mg/dl Est Cr Clr Drug Dosing 48.6 ml/min eGFR 46.20 BUN/Creatinine Ratio 16.4 (10-20) Glucose 131 H (70-99(Fasting)) mg/dl POC Glucose (other) 134 H (70-99) mg/dl Lactate 2.4 H* (0.4-2.0) mmol/L Calcium 10.2 (8.6-10.3) mg/dl POC Ioniz Calcium Maria Isabel 1.29 (1.12-1.32) mmol/l Magnesium 1.8 (1.7-2.4) mg/dl Total Bilirubin 3.3 H (0.2-1.0) mg/dl AST 101 H (13-39) U/L ALT 186 H (7-52) U/L Alkaline Phosphatase 227 H (34-104) U/L Troponin I High Sens 9.3 (0-14) pg/ml Total Protein 7.0 (6.0-8.3) gm/dl Albumin 4.0 (3.4-5.0) gm/dl Globulin 3.0 (2.5-4.0) gm/dl Albumin/Globulin Ratio 1.3 (0.9-2) Lipase 202 H (11-82) U/L Procalcitonin 2.51 H (0-0.5) ng/ml Urine Color Urine Appearance (Clear) Urine pH (4.5-7.5) Ur Specific [place] (1.000-1.030) Urine Protein (Negative) Urine Glucose (UA) (Negative) Urine Ketones (Negative) Urine Blood (Negative) Urine Nitrite (Negative) Urine Bilirubin (Negative) Urine Urobilinogen (Negative) Ur Leukocyte Esterase (Negative) Urine WBC (Auto) (0-5) /hpf Urine RBC (Auto) (0-2) /hpf U Hyaline Cast (Auto) (0-2) /lpf U Epithel Cells (Auto) (0-2) /hpf Urine Bacteria (Auto) (None Seen) Adenovirus (PCR) Not Detected (NotDetected) B. pertussis DNA (PCR) Not Detected (NotDetected) B.parapertussis DNA PCR Not Detected (NotDetected) C. pneumoniae DNA (PCR) Not Detected (NotDetected) Coronavirus OC43 (PCR) Not Detected (NotDetected) Coronavirus HKU1 (PCR) Not Detected (NotDetected) Coronavirus 229E (PCR) Not Detected (NotDetected) SARS-CoV-2 (PCR) Not Detected (NotDetected) Coronavirus NL63 (PCR) Not Detected (NotDetected) Human Metapneumovir PCR Not Detected (NotDetected) Influenza Type A (PCR) Not Detected (NotDetected) Influenza Type B (PCR) Not Detected (NotDetected) M. pneumoniae (PCR) Not Detected (NotDetected) Parainfluenza 1 (PCR) Not Detected (NotDetected) Parainfluenza 2 (PCR) Not Detected (NotDetected) Parainfluenza 3 (PCR) Not Detected (NotDetected) Parainfluenza 4 (PCR) Not Detected (NotDetected) RSV (PCR) Not Detected (NotDetected) Entero/Rhino (PCR) Not Detected (NotDetected) Blood Type O Negative Antibody Screen NEGATIVE 01/26/25 Range/Units 19:08 WBC (4.8-10.8) K/ul RBC (4.20-5.40) M/uL Hgb (12.0-16.0) g/dl POC Hgb (12.0-16.0) g/dl Hct (37.0-47.0) % POC Hct (37-47) % MCV (80.0-100.0) fL MCH (25.0-34.0) pg MCHC (32.0-36.0) g/dL RDW Std Deviation (36.4-46.3) fL RDW Coeff of Patrice (11.5-14.5) % Plt Count (130-400) K/uL MPV (9.4-12.4) fL Immature Gran % (Auto) % Neut % (Auto) % Lymph % (Auto) % [place] % (Auto) % Eos % (Auto) % Baso % (Auto) % Neut # (Auto) (1.40-6.50) K/uL Lymph # (Auto) (1.20-3.40) K/uL [place] # (Auto) (0.11-0.59) K/uL Eos # (Auto) (0.00-0.50) K/uL Baso # (Auto) (0.00-0.20) K/uL Immature Gran # (Auto) (0.01-0.20) K/uL PT (9.0-12.0) Seconds INR (0.9-1.1) POC Sodium (135-144) mmol/L Sodium (136-145) mmol/L POC Potassium (3.3-5.0) mmol/L Potassium (3.5-5.1) mmol/L POC Chloride (101-112) mmol/L Chloride (98-107) mmol/L Carbon Dioxide (21-32) mmol/L POC Total CO2 (24-31) mmol/L Anion Gap (3-11) POC Anion Gap (16-25) mmol/L POC BUN (7-18) mg/dl BUN (6-23) mg/dl Creatinine (0.6-1.2) mg/dl POC Creatinine (0.6-1.3) mg/dl Est Cr Clr Drug Dosing ml/min eGFR BUN/Creatinine Ratio (10-20) Glucose (70-99(Fasting)) mg/dl POC Glucose (other) (70-99) mg/dl Lactate (0.4-2.0) mmol/L Calcium (8.6-10.3) mg/dl POC Ioniz Calcium Maria Isabel (1.12-1.32) mmol/l Magnesium (1.7-2.4) mg/dl Total Bilirubin (0.2-1.0) mg/dl AST (13-39) U/L ALT (7-52) U/L Alkaline Phosphatase (34-104) U/L Troponin I High Sens (0-14) pg/ml Total Protein (6.0-8.3) gm/dl Albumin (3.4-5.0) gm/dl Globulin (2.5-4.0) gm/dl Albumin/Globulin Ratio (0.9-2) Lipase (11-82) U/L Procalcitonin (0-0.5) ng/ml Urine Color Dark Yellow Urine Appearance Clear (Clear) Urine pH 6.0 (4.5-7.5) Ur Specific [place] > 1.045 H (1.000-1.030) Urine Protein 1+ H (Negative) Urine Glucose (UA) Negative (Negative) Urine Ketones Trace H (Negative) Urine Blood Negative (Negative) Urine Nitrite Positive A (Negative) Urine Bilirubin Negative (Negative) Urine Urobilinogen Negative (Negative) Ur Leukocyte Esterase 1+ H (Negative) Urine WBC (Auto) 11-20 H (0-5) /hpf Urine RBC (Auto) 0-2 (0-2) /hpf U Hyaline Cast (Auto) 0-2 (0-2) /lpf U Epithel Cells (Auto) 6-10 H (0-2) /hpf Urine Bacteria (Auto) 1+ H (None Seen) Adenovirus (PCR) (NotDetected) B. pertussis DNA (PCR) (NotDetected) B.parapertussis DNA PCR (NotDetected) C. pneumoniae DNA (PCR) (NotDetected) Coronavirus OC43 (PCR) (NotDetected) Coronavirus HKU1 (PCR) (NotDetected) Coronavirus 229E (PCR) (NotDetected) SARS-CoV-2 (PCR) (NotDetected) Coronavirus NL63 (PCR) (NotDetected) Human Metapneumovir PCR (NotDetected) Influenza Type A (PCR) (NotDetected) Influenza Type B (PCR) (NotDetected) M. pneumoniae (PCR) (NotDetected) Parainfluenza 1 (PCR) (NotDetected) Parainfluenza 2 (PCR) (NotDetected) Parainfluenza 3 (PCR) (NotDetected) Parainfluenza 4 (PCR) (NotDetected) RSV (PCR) (NotDetected) Entero/Rhino (PCR) (NotDetected) Blood Type Antibody Screen Administered Medications Discontinued Medications Sodium Chloride (Nss) 1,000 mls @ 999 mls/hr IV .Q1H1M ONE Stop: 01/26/25 16:44 Last Infusion: 01/26/25 17:30 Dose: Infused Documented By: Admin: 01/26/25 15:59 Dose: 999 mls/hr Documented By: MARIAELENA Piperacillin Sod/Tazobactam Sod (Zosyn) 4.5 gm in 100 mls @ 200 mls/hr IV NOW ONE; Protocol Stop: 01/26/25 17:01 Last Infusion: 01/26/25 17:30 Dose: Infused Documented By: Admin: 01/26/25 16:42 Dose: 200 mls/hr Documented By: LASHAWN Sodium Chloride (Nss) 1,000 mls @ 999 mls/hr IV .Q1H1M ONE Stop: 01/26/25 17:43 Last Infusion: 01/26/25 18:12 Dose: Infused Documented By: Admin: 01/26/25 16:54 Dose: 999 mls/hr Documented By: LASHAWN Ioversol (Optiray 320 125ml) 118 ml IV ONCE ONE Stop: 01/26/25 16:16 Last Admin: 01/26/25 16:16 Dose: 118 ml Documented By: SHAUNA Morphine Sulfate (Morphine Sulfate 4 Mg/Ml 1 Ml Carp\\Vial) 4 mg IV NOW STA Stop: 01/26/25 15:52 Last Admin: 01/26/25 15:59 Dose: 4 mg Documented By: MARIAELENA Ondansetron HCl (Ondansetron Inj 2 Mg/Ml 2 Ml Vial) 4 mg IV NOW STA Stop: 01/26/25 15:52 Last Admin: 01/26/25 15:59 Dose: 4 mg Documented By: MARIAELENA Imaging Data Radiologist's Impression: Abdomen/Pelvis CTA 01/26/25 15:51 EXAMINATION: CT angio abdomen pelvis with contrast CLINICAL HISTORY: Diffuse abdominal pain, peritonitis, tachycardia PRIORS: CT abdomen 06/08/2017 TECHNIQUE: Contiguous axial images were obtained through the abdomen and pelvis with the use of intravenous contrast. Sagittal and coronal reformations are supplied. FINDINGS: Mild hypoventilatory changes at the lung bases, right greater than left. The aorta is normal in caliber with mild calcified atherosclerotic disease. Moderate atherosclerotic disease noted involving the takeoff of the celiac trunk with no significant stenosis, image 132, series 401. Moderate calcified atherosclerotic disease of the SMA origin with moderate stenosis of the ostia. The celiac trunk and SMA both opacify normally. No hemodynamically significant stenosis of the distal branches. The JULI is patent. No aneurysmal dilatation. The distal bifurcation into the iliac arteries is normal with no significant atherosclerotic disease. No active extravasation or MITZI aortic inflammatory change. Allowing for arterial phase, the gallbladder is distended with moderate wall thickening and pericolic cystic fluid. Moderate inflammatory change noted surrounding and inferior to the gallbladder. The portal vein is partly opacified. Pancreas is atrophic. The spleen, stomach, adrenals, are morphologically unremarkable. Kidneys enhance symmetrically with diffuse cortical thinning. No obstructing calculus. No extraluminal gas, bowel wall thickening, dilated loops of bowel or pneumatosis. Small amount of free fluid present in the pelvis. Urinary bladder under distended and morphologically unremarkable. Atrophic uterus is present. In bone windows, posterior fusion hardware of the lower lumbar spine noted. IMPRESSION: 1. Gallbladder distention with moderate wall thickening, pericolonic inflammatory change and inflammatory change extending inferiorly and into the pelvis, strongly favoring acute cholecystitis. Right upper quadrant ultrasound is suggested with surgical consultation. 2. Mild to moderate atherosclerotic disease of the abdominal aorta and takeoff of the celiac trunk and SMA with no hemodynamically significant stenosis. ACT 112: Positive. There are findings on this examination that require communication between the performing entity and the patient following Patient Test Result Information Act ([place] ACT 112) guidelines. Electronically signed by Cindi Hanna 01-26-2025 4:31 PM Gallbladder Ultrasound 01/26/25 16:33 EXAM: US gallbladder CLINICAL HISTORY: Abd pain; acute cholecystitis on CT TECHNIQUE: Limited ultrasound of the liver and gallbladder was performed in greyscale and Doppler. Multiple images were obtained in transverse and longitudinal planes. COMPARISON: Prior CT dated 01/26/2025 and US 03/14/2024. FINDINGS: Liver: Liver size: mildly enlarged in size reaching 17.3 mm in the right lobe span. The liver appears normal in size with homogeneous echotexture. No evidence of focal lesions, cysts, or masses. Hepatic vasculature appears normal. Gallbladder: Gallbladder size: is distended with a thick echogenic wall (6mm) harboring a mud/sludge with intervening small several echogenic stones aggregated together with backshadowing is seen . No pericholecystic fluid was noted. Biliary Tree: Common bile duct diameter: [Measurement in 5.3 mm] . The common bile duct is within normal limits in caliber and not dilated. No evidence of biliary obstruction. The examined portion of the pancreatic head and body appears normal. OBX.5.1OBX.5.1.1 The right kidney shows an average senile size /OBX.5.1.1OBX.5.1.2 parenchymal echogenicity with small right lower pole cyst of 2 cm in size and again mild right lower calyceal dilatation./OBX.5.1.2/OBX.5.1 IMPRESSION: 1. Evidence of chronic calcular cholecystitis with sludge and small calculi was noted on a US basis. 2. Mild hepatomegaly noted. 3. The right kidney shows a small right lower pole cyst of 2 cm. 4. Findings cope the prior studies Electronically signed by Juanjose Hernandez 01-26-2025 7:20 PM Chest X-Ray 01/26/25 16:43 EXAM: XR chest 1V portable CLINICAL HISTORY: Sepsis. TECHNIQUE: An X-ray image of the chest is obtained in AP projection. COMPARISON: 11/17/2024 14:11:08 [employer]ARM[employer] FINDINGS: Pulmonary Parenchyma: Lungs are clear bilaterally. No evidence of consolidation, collapse, or focal opacities. No pulmonary nodules are identified. No evidence of pleural effusion or pleural thickening. Heart and Mediastinum: Heart size and shape are normal. No mediastinal widening or masses. No hilar or mediastinal lymphadenopathy. Bony Thorax: Left upper lateral chest wall radio-opaque shadow suggests CT assessment and clinical co-relation to exclude scapular fracture. Soft Tissues: Soft tissues overlying the chest wall are unremarkable. IMPRESSION: 1. Normal chest X-ray. 2. No acute cardiopulmonary abnormalities are identified. 3. The radio-opaque shadow on the left upper lateral chest wall shows sharp bony edges. CT assessment and clinical co-relation to exclude scapular fracture or overlapped shadows is suggested. New. Electronically signed by Juanjose Hernandez 01-26-2025 7:16 PM Discharge Plan Visit Data Chief Complaint: Abdominal Pain Stated Complaint: ABDOMINAL PAIN, ORANGE URINE, WEAKNESS ED Provider: Carolina Miller Discharge Problem: Sepsis, Acute cholecystitis, Transaminitis, Elevated lipase, Leukocytosis, Hyperbilirubinemia, Elevated lactic acid level, Elevated procalcitonin, SANTINO (acute kidney injury), Acute hypokalemia, Acute UTI (urinary tract infection) Forms Stand Alone Forms: My [facility] Prescriptions Prescriptions: No Action metformin 500 mg tablet 1,000 mg PO QAM Qty: 180 3RF allopurinol 300 mg tablet 300 mg PO QAM Qty: 90 3RF gabapentin 300 mg capsule 600 mg PO TID Qty: 540 1RF montelukast 10 mg tablet 10 mg PO QAM Qty: 90 3RF losartan 50 mg tablet 50 mg PO DAILY Qty: 90 3RF spironolacton-hydrochlorothiaz 25-25 mg tablet 1 tab PO QAM Qty: 90 3RF cyclobenzaprine 10 mg tablet 10 mg PO TID PRN (Reason: muscle spasm) Qty: 90 5RF acetaminophen 325 mg capsule 650 mg PO PRN PRN (Reason: Pain) cetirizine [Zyrtec] 10 mg tablet 10 mg PO QAM metoprolol succinate 25 mg tablet extended release 24 hr 25 mg PO DAILY Qty: 90 3RF rabeprazole [AcipHex] 20 mg tablet,delayed release (DR/EC) 20 mg PO HS Patient Comments: hasn't started yet ropinirole 0.25 mg tablet 0.25 mg PO UD Rx Instructions: 0.25 mg PO dinner and 2 tablets po in evening ; ezetimibe [Zetia] 10 mg tablet 10 mg PO HS thyroid (pork) 60 mg tablet 60 mg PO HS dapagliflozin propanediol 10 mg tablet 10 mg PO QAM oxycodone-acetaminophen [Percocet] 5-325 mg Tablet 1 tab PO Q6H PRN (Reason: pain) Qty: 24 0RF Referrals Referrals: Isak Bruce MD [Primary Care Provider] -
[2025-01-26] MEDS: SODIUM CHLORIDE 0.9% 1,000 ML IV ONE ×2 (15:59→16:54)
[2025-01-26] MEDS: MoRPHine SULFATE 4 MG/ML 1 ML CARP\\VIAL IV STA (15:59)
[2025-01-26] MEDS: ONDANSETRON INJ 2 MG/ML 2 ML VIAL IV STA (15:59)
[2025-01-26 16:13] LABS: iSTAT Creatinine 1.4 mg/dl (0.6-1.3); iSTAT Hemoglobin 12.6 g/dl (12.0-16.0); iSTAT Ionized Calcium 1.29 mmol/l (1.12-1.32); iSTAT Potassium 3.4 mmol/L (3.3-5.0)
[2025-01-26 16:15] LABS: Basophils # (auto) 0.03 K/uL (0.00-0.20); Basophils % (auto) 0.3 %; Eosinophils # (auto) 0.12 K/uL (0.00-0.50); Hematocrit (blood only) 35.6 % (37.0-47.0); Hemoglobin 11.5 g/dl (12.0-16.0); Immature Granulocytes # (auto) 0.07 K/uL (0.01-0.20); Immature Granulocytes % (auto) 0.6 %; Lymphocytes # (auto) 0.56 K/uL (1.20-3.40); Lymphocytes % (auto) 4.8 %; Mean Corpuscular Hemoglobin 28.5 pg (25.0-34.0); Mean Corpuscular Hgb Conc 32.3 g/dL (32.0-36.0); Mean Corpuscular Volume 88.3 fL (80.0-100.0); Mean Platelet Volume 10.5 fL (9.4-12.4); Monocytes # (auto) 0.71 K/uL (0.11-0.59); Monocytes % (auto) 6.1 %; Neutrophils % (auto) 87.2 %; Platelet Count 244 K/uL (130-400); RDW Coefficient of Variation 13.7 % (11.5-14.5); RDW Standard Deviation 44.3 fL (36.4-46.3); Red Blood Count 4.03 M/uL (4.20-5.40); White Blood Count 11.69 K/ul (4.8-10.8)
[2025-01-26] MEDS: OPTIRAY 320 125ml IV ONE (16:16)
--- NOTE | 2025-01-26 16:18 | Electrocardiogram Report ---
Test Reason : Blood Pressure : */* mmHG Vent. Rate : 123 BPM Atrial Rate : 123 BPM P-R Int : 128 ms QRS Dur : 74 ms QT Int : 424 ms P-R-T Axes : 1 11 48 degrees QTcB Int : 607 ms Sinus tachycardia Nonspecific ST and T wave abnormality Abnormal ECG When compared with ECG of 27-Nov-2024 09:16, (unconfirmed) Nonspecific T wave abnormality, improved in Inferior leads Nonspecific T wave abnormality, improved in Anterior leads Confirmed by Tyree Hays ([id number]) on 01/26/2025 4:17:59 PM Referred By: Confirmed By: Tyree Hays
--- NOTE | 2025-01-26 16:32 | CT Scan Report ---
EXAMINATION: CT angio abdomen pelvis with contrast CLINICAL HISTORY: Diffuse abdominal pain, peritonitis, tachycardia PRIORS: CT abdomen 06/08/2017 TECHNIQUE: Contiguous axial images were obtained through the abdomen and pelvis with the use of intravenous contrast. Sagittal and coronal reformations are supplied. FINDINGS: Mild hypoventilatory changes at the lung bases, right greater than left. The aorta is normal in caliber with mild calcified atherosclerotic disease. Moderate atherosclerotic disease noted involving the takeoff of the celiac trunk with no significant stenosis, image 132, series 401. Moderate calcified atherosclerotic disease of the SMA origin with moderate stenosis of the ostia. The celiac trunk and SMA both opacify normally. No hemodynamically significant stenosis of the distal branches. The JULI is patent. No aneurysmal dilatation. The distal bifurcation into the iliac arteries is normal with no significant atherosclerotic disease. No active extravasation or MITZI aortic inflammatory change. Allowing for arterial phase, the gallbladder is distended with moderate wall thickening and pericolic cystic fluid. Moderate inflammatory change noted surrounding and inferior to the gallbladder. The portal vein is partly opacified. Pancreas is atrophic. The spleen, stomach, adrenals, are morphologically unremarkable. Kidneys enhance symmetrically with diffuse cortical thinning. No obstructing calculus. No extraluminal gas, bowel wall thickening, dilated loops of bowel or pneumatosis. Small amount of free fluid present in the pelvis. Urinary bladder under distended and morphologically unremarkable. Atrophic uterus is present. In bone windows, posterior fusion hardware of the lower lumbar spine noted. IMPRESSION: 1. Gallbladder distention with moderate wall thickening, pericolonic inflammatory change and inflammatory change extending inferiorly and into the pelvis, strongly favoring acute cholecystitis. Right upper quadrant ultrasound is suggested with surgical consultation. 2. Mild to moderate atherosclerotic disease of the abdominal aorta and takeoff of the celiac trunk and SMA with no hemodynamically significant stenosis. ACT 112: Positive. There are findings on this examination that require communication between the performing entity and the patient following Patient Test Result Information Act ([place] ACT 112) guidelines. Electronically signed by Cindi Hanna 01-26-2025 4:31 PM
[2025-01-26 16:40] LABS: Prothrombin Time 11.3 Seconds (9.0-12.0)
[2025-01-26 16:41] LABS: Albumin Globulin Ratio 1.3 (0.9-2); BUN Creatinine Ratio 16.4 (10-20); Bilirubin,Total 3.3 mg/dl (0.2-1.0); Calcium 10.2 mg/dl (8.6-10.3); Creatinine Clr Calc Pharmacy 48.6 ml/min; Potassium 3.4 mmol/L (3.5-5.1)
[2025-01-26] MEDS: PIPERACILLIN/TAZOBACTAM 4.5 GM/100 ML BAG IV ONE (16:42)
[2025-01-26 16:44] LABS: Troponin I High Sensitivity 9.3 pg/ml (0-14)
[2025-01-26 17:00] LABS: Adenovirus PCR Not Detected (NotDetected); Bordetella parapertussis PCR Not Detected (NotDetected); Bordetella pertussis PCR Not Detected (NotDetected); Chlamydia pneumoniae PCR Not Detected (NotDetected); Coronavirus 229E PCR Not Detected (NotDetected); Coronavirus CoV-2 (COVID19)PCR Not Detected (NotDetected); Coronavirus HKU1 PCR Not Detected (NotDetected); Coronavirus NL63 PCR Not Detected (NotDetected); Coronavirus OC43PCR Not Detected (NotDetected); Human Metapneumovirus PCR Not Detected (NotDetected); Influenza A PCR Not Detected (NotDetected); Influenza B PCR Not Detected (NotDetected); Mycoplasma pneumoniae PCR Not Detected (NotDetected); Parainfluenza Virus 1 PCR Not Detected (NotDetected); Parainfluenza Virus 2 PCR Not Detected (NotDetected); Parainfluenza Virus 3 PCR Not Detected (NotDetected); Parainfluenza Virus 4 PCR Not Detected (NotDetected); Respiratory Syncytial VirusPCR Not Detected (NotDetected); Rhinovirus/Enterovirus PCR Not Detected (NotDetected)
[2025-01-26 17:06] LABS: Magnesium 1.8 mg/dl (1.7-2.4)
--- NOTE | 2025-01-26 19:16 | XRay Report ---
EXAM: XR chest 1V portable CLINICAL HISTORY: Sepsis. TECHNIQUE: An X-ray image of the chest is obtained in AP projection. COMPARISON: 11/17/2024 14:11:08 PRIOR AUTHORIZATION NURSE FINDINGS: Pulmonary Parenchyma: Lungs are clear bilaterally. No evidence of consolidation, collapse, or focal opacities. No pulmonary nodules are identified. No evidence of pleural effusion or pleural thickening. Heart and Mediastinum: Heart size and shape are normal. No mediastinal widening or masses. No hilar or mediastinal lymphadenopathy. Bony Thorax: Left upper lateral chest wall radio-opaque shadow suggests CT assessment and clinical co-relation to exclude scapular fracture. Soft Tissues: Soft tissues overlying the chest wall are unremarkable. IMPRESSION: 1. Normal chest X-ray. 2. No acute cardiopulmonary abnormalities are identified. 3. The radio-opaque shadow on the left upper lateral chest wall shows sharp bony edges. CT assessment and clinical co-relation to exclude scapular fracture or overlapped shadows is suggested. New. Electronically signed by Juanjose Hernandez 01-26-2025 7:16 PM
--- NOTE | 2025-01-26 19:21 | Ultrasound Report ---
EXAM: US gallbladder CLINICAL HISTORY: Abd pain; acute cholecystitis on CT TECHNIQUE: Limited ultrasound of the liver and gallbladder was performed in greyscale and Doppler. Multiple images were obtained in transverse and longitudinal planes. COMPARISON: Prior CT dated 01/26/2025 and US 03/14/2024. FINDINGS: Liver: Liver size: mildly enlarged in size reaching 17.3 mm in the right lobe span. The liver appears normal in size with homogeneous echotexture. No evidence of focal lesions, cysts, or masses. Hepatic vasculature appears normal. Gallbladder: Gallbladder size: is distended with a thick echogenic wall (6mm) harboring a mud/sludge with intervening small several echogenic stones aggregated together with backshadowing is seen . No pericholecystic fluid was noted. Biliary Tree: Common bile duct diameter: [Measurement in 5.3 mm] . The common bile duct is within normal limits in caliber and not dilated. No evidence of biliary obstruction. The examined portion of the pancreatic head and body appears normal. OBX.5.1OBX.5.1.1 The right kidney shows an average senile size /OBX.5.1.1OBX.5.1.2 parenchymal echogenicity with small right lower pole cyst of 2 cm in size and again mild right lower calyceal dilatation./OBX.5.1.2/OBX.5.1 IMPRESSION: 1. Evidence of chronic calcular cholecystitis with sludge and small calculi was noted on a US basis. 2. Mild hepatomegaly noted. 3. The right kidney shows a small right lower pole cyst of 2 cm. 4. Findings cope the prior studies Electronically signed by Juanjose Hernandez 01-26-2025 7:20 PM
[2025-01-26 19:34] LABS: Appearance Urine Clear (Clear); Bacteria Urine Automated 1+ (None Seen); Bilirubin Urine Negative (Negative); Blood Urine Negative (Negative); Cast Urine Automated 0-2 /lpf (0-2); Color Urine Dark Yellow; Glucose Urine UA Negative (Negative); Ketones Urine Trace (Negative); Leukocyte Esterase Urine 1+ (Negative); Nitrite Urine Positive (Negative); Protein Urine 1+ (Negative); RBC Urine Automated 0-2 /hpf (0-2); Specific Gravity Urine > 1.045 (1.000-1.030); Urobilinogen Urine Negative (Negative)
--- NOTE | 2025-01-26 20:45 | Surgery Consultation ---
Date of Consultation January 26, 2025 Assessment & Plan (1) Cholecystitis: The patient is being admitted on the hospitalist service. From surgery perspective we recommend the following: It appears that the patient has cholecystitis She does have elevated LFTs but there is no evidence of biliary ductal dilat ation. Ideally be preferable to get an MRCP but I am informed by the emergency room physician that MRI services are currently not available. If MRI services become available would recommend obtaining an MRCP In the interim, the patient should be admitted proceeding as follows: Provide analgesics Provide antiemetics Maintain n.p.o. status Provide IV fluid for hydration We will plan on repeating LFTs the morning of 01/27/2025. If her LFTs are improving this may curtail the need for further biliary imaging as noted above. The patient does have worsening of her LFTs the patient will likely require an ERCP. Antibiotics in form of Zosyn have been initiated and should continue. Patient is noted to have an elevated lipase and on physical exam has some clinical evidence of pancreatitis. This is likely related to her underlying biliary pathology. Will continue with plan as noted above along with repeating her lipase with a.m. labs on 01/27/2025. It appears that the patient does have a urinary tract infection and the above-noted selected antibiotics to cover most likely pathogens causing urinary tract infection SCDs to be used for DVT prevention, no chemical means until is ascertained whether or not the patient requires surgical/procedural intervention Additional recommendations with forthcoming based on her clinical course as it unfolds (2) Elevated lipase: (3) Transaminitis: History of Present Illness Reason for Consultation: Cholecystitis History of Present Illness This is a 64-year-old female who presented to the emergency department secondary to abdominal pain. Patient notes that she has been having abdominal pain for approximately 3 days. She says that the pain is located in a bandlike fashion across her central abdomen and has been relatively persistent since it began. She denies any radiation of the pain. She denies any vomiting but has had nausea. She has not had any diarrhea. She denies any fevers, shakes, or chills. The patient notes that she has not had any postprandial pain over the past several weeks to months. She has had prior abdominal surgeries in the form of a appendectomy for a ruptured appendix. She has also had exploratory abdominal surgeryshe had an abdominal mass that was felt to be a schwannoma but after surgical intervention this mass turned out to be a lymphoma so the patient underwent chemotherapy which concluded in 2006 and she also had abdominal radiation which concluded in 2004. Since arrival to the hospital today she had labs and imaging which independent reviewed. She had a CT scan of the abdomen and pelvis. This showed the patient had gallbladder distention with moderate gallbladder wall thickening. Pericholecystic fluid was noted. She also had pericolonic inflammatory change and inflammatory changes extending inferiorly into the pelvis. The interpreting radiologist felt that this favored acute cholecystitis. A gallbladder ultrasound was subsequently performed which showed a distended and thick-walled gallbladder which is felt to have sludge and gallstones. No pericholecystic fluid is noted on this study. There is no dilatation of the common bile duct or evidence of biliary ductal obstruction. Chest x-ray showed no evidence of pneumonia. Labs included CBC white blood cell count was elevated 11.6. Hemoglobin and hematocrit 11.5 and 35.6. Platelet count was normal. Chemistry profile showed sodium was 135 with a potassium of 3.4. BUN was not elevated. Her creatinine had a slight elevation of 1.2. Lactic acid level was elevated 2.4. LFTs showed total bilirubin 3.3. Her AST and ALT were 101 and 186 respectively. Her alkaline phosphatase was 227. Lipase is elevated at 202. Urinalysis was positive for nitrites and had pyuria with 11-20 white blood cells per high-power field. 1+ leukocyte Estrace and 1+ bacteria was noted. She did have a bio fire study tested and all viruses tested for were negative. At the time of my interview the patient was resting comfortably in bed and she was in no distress Allergies Allergy/AdvReac Type Severity Reaction Status Date / Time atorvastatin [From Lipitor] AdvReac Intermediate Myalgias Verified 12/30/24 08:41 (see comments) simvastatin [From Zocor] AdvReac Intermediate Myalgias Verified 12/30/24 08:41 Pytjyyr-HES-XcG Reductase AdvReac Intermediate Myalgias Verified 12/30/24 08:41 Inhibitor [Zicglef-Ywc-Sax Reductase Inhibitor] Home Medications Medication Instructions Recorded Confirmed Type acetaminophen 325 mg capsule 650 mg PO PRN PRN Pain 07/23/19 12/30/24 History cetirizine 10 mg tablet (Zyrtec) 10 mg PO QAM 07/23/19 12/30/24 History cyclobenzaprine 10 mg tablet 10 mg PO TID PRN muscle spasm #90 06/19/23 12/30/24 Rx tabs metformin 500 mg tablet 1,000 mg (2 x 500 mg) PO QAM #180 05/05/24 12/30/24 Rx tabs allopurinol 300 mg tablet 300 mg PO QAM #90 tabs 08/27/24 12/30/24 Rx gabapentin 300 mg capsule 600 mg (2 x 300 mg) PO TID #540 09/08/24 12/30/24 Rx caps dapagliflozin propanediol 10 mg 10 mg PO QAM 11/06/24 12/30/24 History tablet ezetimibe 10 mg tablet (Zetia) 10 mg PO HS 11/06/24 12/30/24 History rabeprazole 20 mg tablet,delayed 20 mg PO HS 11/06/24 12/30/24 History release (AcipHex) ropinirole 0.25 mg tablet 0.25 mg PO UD 11/06/24 12/30/24 History thyroid (pork) 60 mg tablet 60 mg PO HS 11/06/24 12/30/24 History metoprolol succinate 25 mg 25 mg PO DAILY #90 tabs 11/27/24 12/30/24 Rx tablet,extended release 24 hr oxycodone-acetaminophen 5 mg-325 1 tab PO Q6H PRN pain #24 tabs 12/11/24 12/30/24 Rx mg tablet (Percocet) montelukast 10 mg tablet 10 mg PO QAM #90 tabs 12/24/24 12/30/24 Rx losartan 50 mg tablet 50 mg PO DAILY #90 tabs 01/21/25 Rx spironolactone 25 1 tab PO QAM #90 tabs 01/21/25 Rx mg-hydrochlorothiazide 25 mg tablet Patient History Medical History Diabetes mellitus type 2, controlled NIDDM Osteoarthritis of knees, bilateral Lumbar stenosis with neurogenic claudication Hypothyroidism Hypercholesteremia Hx of non-Hodgkin's lymphoma (2004) s/p chemo/xrt (2004), subsequent prophylactic chemo ([id number]) "Not active" per pt Degenerative spondylolisthesis Postmenopausal Hx of migraines last was approx. 9 months Primary hyperparathyroidism Hx of endometriosis Restless leg syndrome Sleep apnea no cpap - used in past/ can't tolerate Spinal stenosis GERD (gastroesophageal reflux disease) controlled, stable per pt CKD (chronic kidney disease) sees neph dr. cerna Arthritis Anxiety claustrophobia in MRI/CT scans Allergic rhinitis Hx of gout Seasonal allergies Asthma Allergy induced, stable-states has not needed rescue inhaler for several months Surgical History History of hysteroscopy (07/2023) S/P epidural steroid injection History of dilatation and curettage x3 History of esophagogastroduodenoscopy (EGD) History of colonoscopy [place] teeth extracted History of oral surgery (2011) Gum surgery for excessive bone growth (2011) History of appendectomy (2014) H/O abdominal surgery (2003) Exploratory surgery r/t non hodgkin's lymphoma (2003) Family History Mother Arthritis Heart disease Father Heart disease Diabetes Hypertension Other No family history of adverse response to anesthesia No family history of bleeding disorder Denies family history of Ovarian cancer Breast cancer Colorectal cancer Social History Smoking Status: Never smoker Second Hand Exposure: No; Do You Dip or Chew Tobacco: No; Hx Alcohol Use: Yes Hx Substance Use: No Preferred Language: Eritrean Communication Ability: Effective Hearing Ability: Normal 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: No Beliefs That Will Affect Care: None marital status: Current Living Situation: Spouse current occupational status: retired current occupation: [employer] at [employer] Feels Safe at Home: Yes Childhood Exposure to Second-Hand Smoke: No Diet: regular caffeine: Yes (12 oz coke daily) Dental Care, Regularly: Yes Physical Activity Frequency: Does not Exercise Seatbelt Use: always Sunscreen Use: No Gender Identity: Female Assistive Devices: Cane Review of Systems Review of Systems: All systems reviewed & are unremarkable except as noted in HPI & below Physical Exam Constitutional: WD/WN, vitals as above Eyes: Slight scleral jaundice noted ENMT: Ears: no hearing impairment and no external ear abnormality No sublingual jaundice noted Neck: trachea midline Respiratory: normal respiratory effort; no respiratory distress and no labored breathing Cardiovascular: Rate/Rhythm: regular rate and regular rhythm Gastrointestinal (Abdomen): Abdomen is rotund but soft. It is nonrigid. There is no rebound tenderness or guarding. Patient did have pain with palpation in the right upper quadrant as well as the periumbilical areas. Musculoskeletal: No calf tenderness Skin: no rashes Neurologic: moves all extremities Psychiatric: A+Ox3, euthymic affect Results & Data Vital Signs (Past 12 Hours) Vital Signs Temp Pulse Pulse Resp BP BP Pulse Ox 01/26/25 18:48 88 01/26/25 17:45 101 H 18 132/98 95 01/26/25 17:30 95 H 19 131/74 94 01/26/25 17:15 93 H 22 119/76 97 01/26/25 17:13 100 H 20 99/67 L 94 01/26/25 16:58 95 H 20 104/65 91 01/26/25 16:43 100 H 20 119/73 91 01/26/25 15:38 37 C 135 H 20 145/87 H 99 01/26/25 15:37 94 O2 Del Method 01/26/25 18:48 01/26/25 17:45 Room Air 01/26/25 17:30 Room Air 01/26/25 17:15 Room Air 01/26/25 17:13 Room Air 01/26/25 16:58 Room Air 01/26/25 16:43 Room Air 01/26/25 15:38 Room Air 01/26/25 15:37 Room Air PG Care Time/CCT Total # of Minutes Spent Total Time Spent with Patient: Total time spent is greater than 50% in coordination of care (as documented) at patient's floor/unit and/or counseling patient: Coding Level of Care Code 84041 INT INP/OBS CARE 375MIN Diagnoses Cholecystitis K81.9 Elevated lipase R74.8 Transaminitis R74.01
[2025-01-26] MEDS ORDERED: NALOXONE HCL 0.4 MG/1 ML VIAL/CARP IV PRN (22:05)
--- NOTE | 2025-01-26 22:34 | History & Physical Report ---
Date of Service January 26, 2025 Assessment & Plan (1) Cholecystitis: (2) Acute UTI (urinary tract infection): (3) Acute hypokalemia: (4) Chronic pain syndrome: (5) Pancreatitis due to biliary obstruction: Plan The patient is a 64-year-old female with past medical history including acute blood loss anemia, history of lumbar spinal fusion for decompression of spinal cord, hyperlipidemia, hypertension, LVH, hypothyroidism, primary hyperparathyroidism, CKD stage III yea, endometrial mass, anxiety, GERD, hirsutism, RLS, SOBEIDA, and vitamin D deficiency. The patient presents to the emergency department with complaints of abdominal pain that initially began in the right lower abdomen about 4 days ago, but now is more toward right upper quadrant and epigastric area. This was accompanied by nausea, without vomiting or diarrhea. With the worsening of her symptoms over the past 3 days, she presented to the ED for evaluation. She denies any fevers or chills, chest pain or shortness of breath. She reports that her symptoms are similar to her history of ruptured appendix in the past. Workup in the emergency department included abnormal liver enzymes, elevated lipase, and CT angiography abdomen and pelvis suggesting acute cholecystitis. Gallbladder ultrasound suggest chronic calculus cholecystitis. Patient was referred for evaluation and treatment to the [facility] service. The patient was also evaluated by general surgery in the emergency department, who requested admission to [facility] service. MRI was not available in the emergency department this evening, due to the MRI unit being in need of repair. #Acute/chronic calculus cholecystitis/pancreatitis secondary to biliary obstruction- NPO AST 101, ALT 186, alkaline phosphatase 227, lipase 202, Pro-Edgar 2.51. WBC 11.69 CT angiography abdomen pelvis shows gallbladder distention with moderate wall thickening, pericolonic inflammatory change with inflammatory changes extending inferiorly into the pelvis strongly favoring acute cholecystitis. Right upper quadrant ultrasound is suggested with surgical consultation. Gallbladder ultrasound shows evidence of chronic calcular cholecystitis with sludge and small calculi. Mild hepatomegaly. MRCP ordered, however, the MRI unit is in need of repair, and cannot be performed this evening. Follow-up laboratories for the morning. General surgery will continue to follow patient, and if laboratories are improved, may consider cholecystectomy in the a.m. If laboratories are worse, patient may need to be referred to a tertiary care center for MRCP/ERCP. Zosyn 4.5 g IV every 8 hours Zofran 4 mg IV every 4 hours as needed Pantoprazole 40 mg IV now and daily Morphine sulfate 2 mg IV every 3 hours needed for moderate pain Morphine sulfate 4 mg IV every 3 hours needed for severe pain NSS at 80 mL/h x 2 L Electrolyte disturbances/dehydration- Status post 1 L normal saline boluses x 2 from the ED, also received morphine 4 mg IV, Zofran 4 mg IV, and Zosyn 4.5 g IV NSS at 80 mL/h x 2 L Potassium chloride 10 mEq IV x 1 Magnesium sulfate 1 g IV x 1 Follow-up laboratories in the a.m. Diabetes mellitus- Hold metformin and dapagliflozin Placed on Accu-Cheks with NovoLog SSI Chronic medical conditions: Gout-hold allopurinol Hyperlipidemia-hold Zetia Hypertension-hold metoprolol succinate, spironolactone-HCTZ, losartan GERD-change Aciphex p.o. to pantoprazole IV Chronic pain syndrome/peripheral neuropathy/RLS-holding cyclobenzaprine, gabapentin, ibuprofen, oxycodone, ropinirole. Placed on morphine IV as needed as noted above Hypothyroidism-Holding [place] Thyroid History of Present Illness Chief Complaint: The patient presents to the emergency department with complaints of abdominal pain that initially began in the right lower abdomen about 4 days ago, but now is more toward right upper quadrant and epigastric area. This was accompanied by nausea, without vomiting or diarrhea. With the worsening of her symptoms over the past 3 days, she presented to the ED for evaluation. She denies any fevers or chills, chest pain or shortness of breath. She reports that her symptoms are similar to her history of ruptured appendix in the past. Primary Care Provider: Isak Bruce MD The patient is a 64-year-old female with past medical history including acute blood loss anemia, history of lumbar spinal fusion for decompression of spinal cord, hyperlipidemia, hypertension, LVH, hypothyroidism, primary hyperparathyroidism, CKD stage III yea, endometrial mass, anxiety, GERD, hirsutism, RLS, SOBEIDA, and vitamin D deficiency. The patient presents to the emergency department with complaints of abdominal pain that initially began in the right lower abdomen about 4 days ago, but now is more toward right upper quadrant and epigastric area. This was accompanied by nausea, without vomiting or diarrhea. With the worsening of her symptoms over the past 3 days, she presented to the ED for evaluation. She denies any fevers or chills, chest pain or shortness of breath. She reports that her symptoms are similar to her history of ruptured appendix in the past. Workup in the emergency department included abnormal liver enzymes, elevated lipase, and CT angiography abdomen and pelvis suggesting acute cholecystitis. Gallbladder ultrasound suggest chronic calculus cholecystitis. Patient was referred for evaluation and treatment to the [facility]. Allergies Allergy/AdvReac Type Severity Reaction Status Date / Time atorvastatin [From Lipitor] AdvReac Intermediate Myalgias Verified 01/27/25 00:11 (see comments) simvastatin [From Zocor] AdvReac Intermediate Myalgias Verified 01/27/25 00:11 Yzetxcu-IQI-JeJ Reductase AdvReac Intermediate Myalgias Verified 01/27/25 00:11 Inhibitor [Kmazkje-Jwo-Xen Reductase Inhibitor] Home Medications Medication Instructions Recorded Confirmed Type cyclobenzaprine 10 mg tablet 10 mg PO TID PRN muscle spasm #90 06/19/23 01/27/25 Rx tabs metformin 500 mg tablet 1,000 mg (2 x 500 mg) PO QAM #180 05/05/24 01/27/25 Rx tabs allopurinol 300 mg tablet 300 mg PO QAM #90 tabs 08/27/24 01/27/25 Rx gabapentin 300 mg capsule 600 mg (2 x 300 mg) PO TID #540 09/08/24 01/27/25 Rx caps dapagliflozin propanediol 10 mg 10 mg PO QAM 11/06/24 01/27/25 History tablet ezetimibe 10 mg tablet (Zetia) 10 mg PO HS 11/06/24 01/27/25 History rabeprazole 20 mg tablet,delayed 20 mg PO HS 11/06/24 01/27/25 History release (AcipHex) ropinirole 0.25 mg tablet 0.25 mg PO .EVENING MEAL 11/06/24 01/27/25 History montelukast 10 mg tablet 10 mg PO QAM #90 tabs 12/24/24 01/27/25 Rx spironolactone 25 1 tab PO QAM #90 tabs 01/21/25 01/27/25 Rx mg-hydrochlorothiazide 25 mg tablet acetaminophen 500 mg tablet 500 mg PO BID PRN Pain 01/27/25 01/27/25 History ibuprofen 200 mg tablet 200 mg PO Q6H PRN Pain 01/27/25 01/27/25 History losartan 50 mg tablet 50 mg PO QAM 01/27/25 01/27/25 History metoprolol succinate 25 mg 25 mg PO HS 01/27/25 01/27/25 History tablet,extended release 24 hr oxycodone 10 mg tablet 5 - 10 mg PO Q6H PRN Pain 01/27/25 01/27/25 History ropinirole 0.25 mg tablet 0.5 mg PO HS 01/27/25 01/27/25 History sumatriptan succinate 25 mg tablet 25 mg PO .DAILY/UD PRN Migraine 01/27/25 01/27/25 History (Imitrex) Headache thyroid (pork) 60 mg tablet 60 mg PO HS 01/27/25 01/27/25 History ([place] Thyroid) Past Med/Surg History Problem List (Updated 01/27/25 @ 02:41 by Aaron Dickerson MD) Pancreatitis due to biliary obstruction Chronic pain syndrome Cholecystitis Acute UTI (urinary tract infection) (Acute) Acute hypokalemia (Acute) SANTINO (acute kidney injury) (Acute) Elevated procalcitonin (Acute) Elevated lactic acid level (Acute) Hyperbilirubinemia (Acute) Leukocytosis (Acute) Elevated lipase (Acute) Transaminitis (Acute) Acute cholecystitis (Acute) Sepsis (Acute) Acute blood loss anemia S/P lumbar spinal fusion Status post lumbar spine surgery for decompression of spinal cord (~12/2024) Tachycardia Elevated LDL cholesterol level Hypertension controlled, stable per pt LVH (left ventricular hypertrophy) Abnormal ECG Hypothyroidism Lumbar stenosis with neurogenic claudication Degenerative spondylolisthesis Primary hyperparathyroidism Chronic kidney disease, stage 3a Endometrial mass Lumbar radiculopathy, chronic Decreased hearing of 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 Encounter for pre-operative examination Thickened endometrium Postmenopausal bleeding Allergic rhinitis Anxiety Arthritis Gastroesophageal reflux disease Hirsutism Restless legs syndrome Sleep apnea No device Vitamin D deficiency Medical History Diabetes mellitus type 2, controlled NIDDM Osteoarthritis of knees, bilateral Lumbar stenosis with neurogenic claudication Hypothyroidism Hypercholesteremia Hx of non-Hodgkin's lymphoma (2004) s/p chemo/xrt (2004), subsequent prophylactic chemo ([id number]) "Not active" per pt Degenerative spondylolisthesis Postmenopausal Hx of migraines last was approx. 9 months Primary hyperparathyroidism Hx of endometriosis Restless leg syndrome Sleep apnea no cpap - used in past/ can't tolerate Spinal stenosis GERD (gastroesophageal reflux disease) controlled, stable per pt CKD (chronic kidney disease) sees neph dr. cerna Arthritis Anxiety claustrophobia in MRI/CT scans Allergic rhinitis Hx of gout Seasonal allergies Asthma Allergy induced, stable-states has not needed rescue inhaler for several months Surgical History History of hysteroscopy (07/2023) S/P epidural steroid injection History of dilatation and curettage x3 History of esophagogastroduodenoscopy (EGD) History of colonoscopy [place] teeth extracted History of oral surgery (2011) Gum surgery for excessive bone growth (2011) History of appendectomy (2014) H/O abdominal surgery (2003) Exploratory surgery r/t non hodgkin's lymphoma (2003) Family History Mother Arthritis Heart disease Father Heart disease Diabetes Hypertension Other No family history of adverse response to anesthesia No family history of bleeding disorder Denies family history of Ovarian cancer Breast cancer Colorectal cancer Social History Smoking Status: Never smoker Second Hand Exposure: No; Do You Dip or Chew Tobacco: No; Hx Alcohol Use: Yes Hx Substance Use: No Preferred Language: Yi Communication Ability: Effective Hearing Ability: Normal 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 Required: No Beliefs That Will Affect Care: None marital status: Current Living Situation: Spouse current occupational status: retired current occupation: [employer] at [employer] Feels Safe at Home: Yes Childhood Exposure to Second-Hand Smoke: No Diet: regular caffeine: Yes (12 oz coke daily) Dental Care, Regularly: Yes Physical Activity Frequency: Does not Exercise Seatbelt Use: always Sunscreen Use: No Gender Identity: Female Assistive Devices: Cane Review of Systems Review of Systems: The patient denies chest pain, palpitations, shortness of breath, dyspnea on exertion, cough, lower extremity swelling, sore throat, fevers, chills, sweats, vomiting, diarrhea , constipation, blood in urine or stool, dysuria, urinary frequency or urgency, lightheadedness, dizziness, headache, memory loss, loss of consciousness, rash, abnormal bruising or bleeding, imbalance, focal weakness, numbness or tingling in arms or legs, generalized arthralgias or myalgias, back or neck pain, or night sweats. The review of systems is otherwise negative other than for that already noted above, and at least 10 systems have been reviewed. Physical Exam Physical Exam: The patient is awake, alert and oriented 3, well developed and well nourished, normocephalic and atraumatic, lying in bed and in no acute distress. HEENT--PERRL, EOMI, mucous membranes and oropharynx mildly dry. Neck--supple. No JVD. No bruits. Thyroid normal, trachea midline, no adenopathy. Heart--normal S1 and S2. No murmurs, rubs or gallops. Lungs--clear bilaterally, no respiratory distress, no accessory muscle use. Abdomen--normal bowel sounds and soft. Tender right upper quadrant. Nondistended, no hernias or masses, no organomegaly. Obesity Extremities--no cyanosis or clubbing. No edema. Dermatologic--normal skin turgor, normal color, no abnormal lymph nodes, no rash. Neurologic--cranial nerves II through XII grossly intact. Rheumatologic--normal range of motion. Psychiatric--normal affect. Results & Data Results & Data Vital Signs (Past 12 Hours) Vital Signs Temp Pulse Pulse Resp BP BP Pulse Ox 01/26/25 20:45 95 H 20 118/73 95 01/26/25 20:00 89 22 124/78 01/26/25 19:50 93 H 24 133/85 01/26/25 19:40 93 H 16 116/88 01/26/25 19:30 89 24 142/92 H 96 01/26/25 19:20 92 H 22 144/106 H 99 01/26/25 19:11 94 H 23 132/100 98 01/26/25 18:48 88 01/26/25 18:45 94 H 21 131/74 96 01/26/25 17:45 101 H 18 132/98 95 01/26/25 17:30 95 H 19 131/74 94 01/26/25 17:15 93 H 22 119/76 97 01/26/25 17:13 100 H 20 99/67 L 94 01/26/25 16:58 95 H 20 104/65 91 01/26/25 16:43 100 H 20 119/73 91 01/26/25 15:38 37 C 135 H 20 145/87 H 99 01/26/25 15:37 94 O2 Del Method 01/26/25 20:45 Room Air 01/26/25 20:00 01/26/25 19:50 01/26/25 19:40 01/26/25 19:30 01/26/25 19:20 01/26/25 19:11 01/26/25 18:48 01/26/25 18:45 01/26/25 17:45 Room Air 01/26/25 17:30 Room Air 01/26/25 17:15 Room Air 01/26/25 17:13 Room Air 01/26/25 16:58 Room Air 01/26/25 16:43 Room Air 01/26/25 15:38 Room Air 01/26/25 15:37 Room Air Laboratory Results Laboratory Results WBC 11.69 K/ul (4.8-10.8) H 01/26/25 15:57 RBC 4.03 M/uL (4.20-5.40) L 01/26/25 15:57 Hgb 11.5 g/dl (12.0-16.0) L 01/26/25 15:57 POC Hgb 12.6 g/dl (12.0-16.0) 01/26/25 16:01 Hct 35.6 % (37.0-47.0) L 01/26/25 15:57 POC Hct 37 % (37-47) 01/26/25 16:01 MCV 88.3 fL (80.0-100.0) 01/26/25 15:57 MCH 28.5 pg (25.0-34.0) 01/26/25 15:57 MCHC 32.3 g/dL (32.0-36.0) 01/26/25 15:57 RDW Std Deviation 44.3 fL (36.4-46.3) 01/26/25 15:57 RDW Coeff of Patrice 13.7 % (11.5-14.5) 01/26/25 15:57 Plt Count 244 K/uL (130-400) 01/26/25 15:57 MPV 10.5 fL (9.4-12.4) 01/26/25 15:57 Immature Gran % (Auto) 0.6 % 01/26/25 15:57 Neut % (Auto) 87.2 % 01/26/25 15:57 Lymph % (Auto) 4.8 % 01/26/25 15:57 Fountain % (Auto) 6.1 % 01/26/25 15:57 Eos % (Auto) 1.0 % 01/26/25 15:57 Baso % (Auto) 0.3 % 01/26/25 15:57 Neut # (Auto) 10.20 K/uL (1.40-6.50) H 01/26/25 15:57 Lymph # (Auto) 0.56 K/uL (1.20-3.40) L 01/26/25 15:57 Fountain # (Auto) 0.71 K/uL (0.11-0.59) H 01/26/25 15:57 Eos # (Auto) 0.12 K/uL (0.00-0.50) 01/26/25 15:57 Baso # (Auto) 0.03 K/uL (0.00-0.20) 01/26/25 15:57 Immature Gran # (Auto) 0.07 K/uL (0.01-0.20) 01/26/25 15:57 PT 11.3 Seconds (9.0-12.0) 01/26/25 15:57 INR 1.0 (0.9-1.1) 01/26/25 15:57 POC Sodium 136 mmol/L (135-144) 01/26/25 16:01 Sodium 135 mmol/L (136-145) L 01/26/25 15:57 POC Potassium 3.4 mmol/L (3.3-5.0) 01/26/25 16:01 Potassium 3.4 mmol/L (3.5-5.1) L 01/26/25 15:57 POC Chloride 101 mmol/L (101-112) 01/26/25 16:01 Chloride 100 mmol/L (98-107) 01/26/25 15:57 Carbon Dioxide 24 mmol/L (21-32) 01/26/25 15:57 POC Total CO2 24 mmol/L (24-31) 01/26/25 16:01 Anion Gap 11 (3-11) 01/26/25 15:57 POC Anion Gap 16.0 mmol/L (16-25) 01/26/25 16:01 POC BUN 20 mg/dl (7-18) H 01/26/25 16:01 BUN 21 mg/dl (6-23) 01/26/25 15:57 Creatinine 1.28 mg/dl (0.6-1.2) H 01/26/25 15:57 POC Creatinine 1.4 mg/dl (0.6-1.3) H 01/26/25 16:01 Est Cr Clr Drug Dosing 48.6 ml/min 01/26/25 15:57 eGFR 46.20 01/26/25 15:57 BUN/Creatinine Ratio 16.4 (10-20) 01/26/25 15:57 Glucose 131 mg/dl (70-99(Fasting)) H 01/26/25 15:57 POC Glucose (other) 134 mg/dl (70-99) H 01/26/25 16:01 Lactate 2.4 mmol/L (0.4-2.0) H* 01/26/25 15:57 Calcium 10.2 mg/dl (8.6-10.3) 01/26/25 15:57 POC Ioniz Calcium Maria Isabel 1.29 mmol/l (1.12-1.32) 01/26/25 16:01 Magnesium 1.8 mg/dl (1.7-2.4) 01/26/25 15:57 Total Bilirubin 3.3 mg/dl (0.2-1.0) H 01/26/25 15:57 AST 101 U/L (13-39) H 01/26/25 15:57 ALT 186 U/L (7-52) H 01/26/25 15:57 Alkaline Phosphatase 227 U/L (34-104) H 01/26/25 15:57 Troponin I High Sens 9.3 pg/ml (0-14) 01/26/25 15:57 Total Protein 7.0 gm/dl (6.0-8.3) 01/26/25 15:57 Albumin 4.0 gm/dl (3.4-5.0) 01/26/25 15:57 Globulin 3.0 gm/dl (2.5-4.0) 01/26/25 15:57 Albumin/Globulin Ratio 1.3 (0.9-2) 01/26/25 15:57 Lipase 202 U/L (11-82) H 01/26/25 15:57 Procalcitonin 2.51 ng/ml (0-0.5) H 01/26/25 15:57 Urine Color Dark Yellow 01/26/25 19:08 Urine Appearance Clear (Clear) 01/26/25 19:08 Urine pH 6.0 (4.5-7.5) 01/26/25 19:08 Ur Specific [place] > 1.045 (1.000-1.030) H 01/26/25 19:08 Urine Protein 1+ (Negative) H 01/26/25 19:08 Urine Glucose (UA) Negative (Negative) 01/26/25 19:08 Urine Ketones Trace (Negative) H 01/26/25 19:08 Urine Blood Negative (Negative) 01/26/25 19:08 Urine Nitrite Positive (Negative) A 01/26/25 19:08 Urine Bilirubin Negative (Negative) 01/26/25 19:08 Urine Urobilinogen Negative (Negative) 01/26/25 19:08 Ur Leukocyte Esterase 1+ (Negative) H 01/26/25 19:08 Urine WBC (Auto) 11-20 /hpf (0-5) H 01/26/25 19:08 Urine RBC (Auto) 0-2 /hpf (0-2) 01/26/25 19:08 U Hyaline Cast (Auto) 0-2 /lpf (0-2) 01/26/25 19:08 U Epithel Cells (Auto) 6-10 /hpf (0-2) H 01/26/25 19:08 Urine Bacteria (Auto) 1+ (None Seen) H 01/26/25 19:08 Adenovirus (PCR) Not Detected (NotDetected) 01/26/25 16:01 B. pertussis DNA (PCR) Not Detected (NotDetected) 01/26/25 16:01 B.parapertussis DNA PCR Not Detected (NotDetected) 01/26/25 16:01 C. pneumoniae DNA (PCR) Not Detected (NotDetected) 01/26/25 16:01 Coronavirus OC43 (PCR) Not Detected (NotDetected) 01/26/25 16:01 Coronavirus HKU1 (PCR) Not Detected (NotDetected) 01/26/25 16:01 Coronavirus 229E (PCR) Not Detected (NotDetected) 01/26/25 16:01 SARS-CoV-2 (PCR) Not Detected (NotDetected) 01/26/25 16:01 Coronavirus NL63 (PCR) Not Detected (NotDetected) 01/26/25 16:01 Human Metapneumovir PCR Not Detected (NotDetected) 01/26/25 16:01 Influenza Type A (PCR) Not Detected (NotDetected) 01/26/25 16:01 Influenza Type B (PCR) Not Detected (NotDetected) 01/26/25 16:01 M. pneumoniae (PCR) Not Detected (NotDetected) 01/26/25 16:01 Parainfluenza 1 (PCR) Not Detected (NotDetected) 01/26/25 16:01 Parainfluenza 2 (PCR) Not Detected (NotDetected) 01/26/25 16:01 Parainfluenza 3 (PCR) Not Detected (NotDetected) 01/26/25 16:01 Parainfluenza 4 (PCR) Not Detected (NotDetected) 01/26/25 16:01 RSV (PCR) Not Detected (NotDetected) 01/26/25 16:01 Entero/Rhino (PCR) Not Detected (NotDetected) 01/26/25 16:01 Blood Type O Negative 01/26/25 15:58 Antibody Screen NEGATIVE 01/26/25 15:58 Impressions Abdomen/Pelvis CTA 01/26/25 15:51 EXAMINATION: CT angio abdomen pelvis with contrast CLINICAL HISTORY: Diffuse abdominal pain, peritonitis, tachycardia PRIORS: CT abdomen 06/08/2017 TECHNIQUE: Contiguous axial images were obtained through the abdomen and pelvis with the use of intravenous contrast. Sagittal and coronal reformations are supplied. FINDINGS: Mild hypoventilatory changes at the lung bases, right greater than left. The aorta is normal in caliber with mild calcified atherosclerotic disease. Moderate atherosclerotic disease noted involving the takeoff of the celiac trunk with no significant stenosis, image 132, series 401. Moderate calcified atherosclerotic disease of the SMA origin with moderate stenosis of the ostia. The celiac trunk and SMA both opacify normally. No hemodynamically significant stenosis of the distal branches. The JULI is patent. No aneurysmal dilatation. The distal bifurcation into the iliac arteries is normal with no significant atherosclerotic disease. No active extravasation or MITZI aortic inflammatory change. Allowing for arterial phase, the gallbladder is distended with moderate wall thickening and pericolic cystic fluid. Moderate inflammatory change noted surrounding and inferior to the gallbladder. The portal vein is partly opacified. Pancreas is atrophic. The spleen, stomach, adrenals, are morphologically unremarkable. Kidneys enhance symmetrically with diffuse cortical thinning. No obstructing calculus. No extraluminal gas, bowel wall thickening, dilated loops of bowel or pneumatosis. Small amount of free fluid present in the pelvis. Urinary bladder under distended and morphologically unremarkable. Atrophic uterus is present. In bone windows, posterior fusion hardware of the lower lumbar spine noted. IMPRESSION: 1. Gallbladder distention with moderate wall thickening, pericolonic inflammatory change and inflammatory change extending inferiorly and into the pelvis, strongly favoring acute cholecystitis. Right upper quadrant ultrasound is suggested with surgical consultation. 2. Mild to moderate atherosclerotic disease of the abdominal aorta and takeoff of the celiac trunk and SMA with no hemodynamically significant stenosis. ACT 112: Positive. There are findings on this examination that require communication between the performing entity and the patient following Patient Test Result Information Act ([place] ACT 112) guidelines. Electronically signed by Cindi Hanna 01-26-2025 4:31 PM Gallbladder Ultrasound 01/26/25 16:33 EXAM: US gallbladder CLINICAL HISTORY: Abd pain; acute cholecystitis on CT TECHNIQUE: Limited ultrasound of the liver and gallbladder was performed in greyscale and Doppler. Multiple images were obtained in transverse and longitudinal planes. COMPARISON: Prior CT dated 01/26/2025 and US 03/14/2024. FINDINGS: Liver: Liver size: mildly enlarged in size reaching 17.3 mm in the right lobe span. The liver appears normal in size with homogeneous echotexture. No evidence of focal lesions, cysts, or masses. Hepatic vasculature appears normal. Gallbladder: Gallbladder size: is distended with a thick echogenic wall (6mm) harboring a mud/sludge with intervening small several echogenic stones aggregated together with backshadowing is seen . No pericholecystic fluid was noted. Biliary Tree: Common bile duct diameter: [Measurement in 5.3 mm] . The common bile duct is within normal limits in caliber and not dilated. No evidence of biliary obstruction. The examined portion of the pancreatic head and body appears normal. [id number] The right kidney shows an average senile size /OBX.5.1.1OBX.5.1.2 parenchymal echogenicity with small right lower pole cyst of 2 cm in size and again mild right lower calyceal dilatation./OBX.5.1.2/OBX.5.1 IMPRESSION: 1. Evidence of chronic calcular cholecystitis with sludge and small calculi was noted on a US basis. 2. Mild hepatomegaly noted. 3. The right kidney shows a small right lower pole cyst of 2 cm. 4. Findings cope the prior studies Electronically signed by Juanjose Hernandez 01-26-2025 7:20 PM Chest X-Ray 01/26/25 16:43 EXAM: XR chest 1V portable CLINICAL HISTORY: Sepsis. TECHNIQUE: An X-ray image of the chest is obtained in AP projection. COMPARISON: 11/17/2024 14:11:08 BLOCK HAND FINDINGS: Pulmonary Parenchyma: Lungs are clear bilaterally. No evidence of consolidation, collapse, or focal opacities. No pulmonary nodules are identified. No evidence of pleural effusion or pleural thickening. Heart and Mediastinum: Heart size and shape are normal. No mediastinal widening or masses. No hilar or mediastinal lymphadenopathy. Bony Thorax: Left upper lateral chest wall radio-opaque shadow suggests CT assessment and clinical co-relation to exclude scapular fracture. Soft Tissues: Soft tissues overlying the chest wall are unremarkable. IMPRESSION: 1. Normal chest X-ray. 2. No acute cardiopulmonary abnormalities are identified. 3. The radio-opaque shadow on the left upper lateral chest wall shows sharp bony edges. CT assessment and clinical co-relation to exclude scapular fracture or overlapped shadows is suggested. New. Electronically signed by Juanjose Hernandez 01-26-2025 7:16 PM Code Status & VTE Plan Code Status Full code PG Care Time/CCT Total # of Minutes Spent Total Time Spent with Patient: Total time spent is greater than 50% in coordination of care (as documented) at patient's floor/unit and/or counseling patient: Coding Level of Care Code 05491 INT INP/OBS CARE 3/75MIN Diagnoses Cholecystitis K81.9 Acute UTI (urinary tract infection) N39.0 Acute hypokalemia E87.6 Chronic pain syndrome G89.4 Pancreatitis due to biliary obstruction K85.90; K83.1
[2025-01-26] MEDS: MoRPHine SULFATE 4 MG/ML 1 ML CARP\\VIAL IV PRN (22:45)
[2025-01-26] MEDS: PANTOprazole 40 MG/10 ML SYR IV ONE (22:46)
[2025-01-26] MEDS: POTASSIUM CHLORIDE / WTR 10 MEQ/100 ML PLCT IV ONE (22:46)
[2025-01-26] MEDS: MAGNESIUM SULFATE / D5W 1 GM/100 ML BAG IV ONE (22:46)
[2025-01-26] MEDS: SODIUM CHLORIDE 0.9% 1,000 ML IV SCH (22:47)
[2025-01-27] MEDS: PIPERACILLIN/TAZOBACTAM 4.5 GM/100 ML BAG IV SCH (02:30)
[2025-01-27] MEDS ORDERED: GLUCOSE 10 TAB/TUBE PO PRN (02:32)
[2025-01-27] MEDS ORDERED: CARBOHYDRATES FOR HYPOGLYCEMIA PO PRN (02:32)
[2025-01-27] MEDS ORDERED: GLUCAGON FOR INJ 1 MG VIAL SQ PRN (02:32)
[2025-01-27] MEDS ORDERED: GLUCOSE 40% GEL 15 GM TUBE PO PRN (02:32)
[2025-01-27] MEDS ORDERED: DEXTROSE 50% 50 ML SYRINGE IV PRN (02:32)
[2025-01-27 08:20] LABS: Basophils # (auto) 0.02 K/uL (0.00-0.20); Basophils % (auto) 0.3 %; Eosinophils # (auto) 0.41 K/uL (0.00-0.50); Eosinophils % (auto) 5.8 %; Hematocrit (blood only) 28.4 % (37.0-47.0); Hemoglobin 9.2 g/dl (12.0-16.0); Immature Granulocytes # (auto) 0.01 K/uL (0.01-0.20); Immature Granulocytes % (auto) 0.1 %; Lymphocytes # (auto) 0.62 K/uL (1.20-3.40); Lymphocytes % (auto) 8.8 %; Mean Corpuscular Hgb Conc 32.4 g/dL (32.0-36.0); Mean Corpuscular Volume 89.6 fL (80.0-100.0); Mean Platelet Volume 10.9 fL (9.4-12.4); Monocytes # (auto) 0.62 K/uL (0.11-0.59); Monocytes % (auto) 8.8 %; Neutrophils % (auto) 76.2 %; Platelet Count 210 K/uL (130-400); RDW Coefficient of Variation 13.7 % (11.5-14.5); RDW Standard Deviation 45.2 fL (36.4-46.3); Red Blood Count 3.17 M/uL (4.20-5.40); White Blood Count 7.08 K/ul (4.8-10.8)
[2025-01-27] MEDS: INSULIN ASPART PER UNIT CHARGE SC SCH ×2 (08:45→22:06)
[2025-01-27 09:11] LABS: Estimated Average Glucose 111 mg/dl; Hemoglobin A1C 5.5 % (4.5-5.6)
[2025-01-27 09:22] LABS: Albumin Globulin Ratio 1.3 (0.9-2); Albumin Level 3.2 gm/dl (3.4-5.0); Bilirubin,Total 1.6 mg/dl (0.2-1.0); Creatinine Clr Calc Pharmacy 60.5 ml/min; Globulin 2.5 gm/dl (2.5-4.0); Potassium 3.6 mmol/L (3.5-5.1); Total Protein 5.7 gm/dl (6.0-8.3)
--- NOTE | 2025-01-27 10:43 | Surgery Progress Note ---
Date of Service January 27, 2025 Assessment & Plan (1) Cholecystitis: Plan: Her CT and ultrasound images and results were personally viewed and interpreted by myself She does have a thickened gallbladder wall and distended gallbladder with pericholecystic inflammation consistent with cholecystitis Her LFTs and bili have improved today and has no biliary ductal dilation on ultrasound Will proceed today with a laparoscopic cholecystectomy, possible open, possible intraoperative cholangiogram Consent was obtained, risks discussed including bleeding, infection, bile leak, ductal injury (2) Transaminitis: Admission and Anticipated Discharge Date Admission Date: January 26, 2025 Subjective Patient seen and examined. Still with epigastric and right upper quadrant abdominal pain. Afebrile. No nausea or vomiting. Review of Systems Constitutional: no fever and no chills Eyes: no blind spots and no corrective lenses Respiratory: no cough and no dyspnea Cardiovascular: no chest pain and no dyspnea on exertion Gastrointestinal: + abdominal pain; no nausea, no vomiting , no constipation and no diarrhea/loose stools Genitourinary: no dysuria and no urinary urgency Integumentary: no rash and no non-healing lesions Neurologic: no headache(s) and no confusion Psychiatric: no behavioral changes and no depression Physical Exam Constitutional: WD/WN, vitals as above Neck: trachea midline, no thyromegaly Respiratory: normal respiratory effort, lungs clear to auscultation Cardiovascular: RRR, no murmur, no edema Gastrointestinal (Abdomen): Inspection/Auscultation: abdomen normal to inspection; abdomen not distended Percussion/Palpation: + abdomen tender (Right upper quadrant), + guarding and abdomen soft; no hernia Positive Izquierdo's Musculoskeletal: no cyanosis or clubbing, extremities motor strength 5/5 Skin: no rashes, warm and dry Psychiatric: A+Ox3, euthymic affect Results & Data Vital Signs (Past 12 Hours) Vital Signs Pulse Resp BP Pulse Ox O2 Del Method 01/27/25 06:39 79 01/27/25 06:24 82 19 91 Room Air 01/27/25 05:33 81 19 91 Room Air 01/27/25 05:06 94 H 17 163/91 H 94 Room Air 01/27/25 04:09 87 17 93 Room Air 01/27/25 04:00 136/77 01/27/25 04:00 136/77 01/27/25 04:00 136/77 01/27/25 04:00 136/77 01/27/25 04:00 136/77 01/27/25 04:00 136/77 01/27/25 04:00 136/77 01/27/25 04:00 136/77 01/27/25 04:00 136/77 01/27/25 04:00 136/77 01/27/25 03:30 89 16 91 Room Air 01/27/25 03:00 83 17 91 Room Air 01/27/25 03:00 134/80 01/27/25 03:00 134/80 01/27/25 03:00 134/80 01/27/25 03:00 134/80 01/27/25 03:00 134/80 01/27/25 03:00 134/80 01/27/25 03:00 134/80 01/27/25 03:00 134/80 01/27/25 03:00 134/80 01/27/25 03:00 134/80 01/27/25 03:00 134/80 01/27/25 03:00 134/80 01/27/25 03:00 134/80 01/27/25 02:30 97 H 22 139/81 94 Room Air 01/27/25 02:03 90 17 116/69 93 Room Air 01/27/25 01:33 93 H 20 111/70 93 Room Air 01/27/25 01:00 101 H 19 94 Room Air 01/27/25 00:30 95 H 19 133/83 93 Room Air 01/27/25 00:00 98 H 20 136/85 94 Room Air 01/26/25 23:33 99 H 18 128/95 95 Room Air 01/26/25 23:03 97 H 24 141/91 H 96 Room Air 01/26/25 22:50 97 H PG Care Time/CCT Total # of Minutes Spent Total Time Spent with Patient: Total time spent is greater than 50% in coordination of care (as documented) at patient's floor/unit and/or counseling patient: Coding Level of Care Code 60262 SUB INP/OBS CARE 2MIN Diagnoses Cholecystitis K81.9 Transaminitis R74.01
[2025-01-27] MEDS ORDERED: PROPOFOL IV EMULSION 10 MG/ML 20 ML VIAL IV ONE (11:30)
[2025-01-27] MEDS ORDERED: ROCURONIUM BROMIDE 10 MG/ML 5 ML VIAL IV ONE (11:30)
[2025-01-27] MEDS ORDERED: LIDOCAINE 2% 2 ML VIAL/AMP(20MG/ML) INFIL ONE (11:30)
[2025-01-27] MEDS ORDERED: MIDAZOLAM HCL 1 MG/ML 2ML VIAL ONE (11:31)
[2025-01-27] MEDS ORDERED: fentaNYL citrate PF 100 MCG/2 ML VIAL ONE ×2 (11:31→12:50)
--- NOTE | 2025-01-27 11:54 | Anesthesiology Consultation ---
Date of Service January 27, 2025 Assessment & Plan Consults Requested medical & cardiac Pulmonary ASA ASA3 Proposed Anesthesia Anesthesia Type: General Risk / Benefits Reviewed With: PT / POA / Parent / Guardian, Accepts Plan and Informed Consent Obtained History Surgery Operation Date: 01/27/25 07:00 Proposed Procedures p Laparoscopic Cholecystectomy Possible Open Possible Cholangiogram - Holger Pritchett, DO Height/Weight Height: 5 ft 4 in Weight: 103.2 kg Allergies Allergy/AdvReac Type Severity Reaction Status Date / Time atorvastatin [From Lipitor] AdvReac Intermediate Myalgias Verified 01/27/25 11:06 (see comments) simvastatin [From Zocor] AdvReac Intermediate Myalgias Verified 01/27/25 11:06 Cpojhyq-RVM-QsY Reductase AdvReac Intermediate Myalgias Verified 01/27/25 11:06 Inhibitor [Cahqbud-Nqt-Skb Reductase Inhibitor] Medications Home Medications Medication Instructions Recorded Confirmed Last Taken cyclobenzaprine 10 mg tablet 10 mg PO TID PRN muscle spasm #90 06/19/23 01/27/25 Unknown tabs metformin 500 mg tablet 1,000 mg (2 x 500 mg) PO QAM #180 05/05/24 01/27/25 01/23/25 tabs allopurinol 300 mg tablet 300 mg PO QAM #90 tabs 08/27/24 01/27/25 01/23/25 gabapentin 300 mg capsule 600 mg (2 x 300 mg) PO TID #540 09/08/24 01/27/25 01/23/25 caps dapagliflozin propanediol 10 mg 10 mg PO QAM 11/06/24 01/27/25 01/23/25 tablet ezetimibe 10 mg tablet (Zetia) 10 mg PO HS 11/06/24 01/27/25 01/23/25 rabeprazole 20 mg tablet,delayed 20 mg PO HS 11/06/24 01/27/25 01/23/25 release (AcipHex) ropinirole 0.25 mg tablet 0.25 mg PO .EVENING MEAL 11/06/24 01/27/25 01/23/25 montelukast 10 mg tablet 10 mg PO QAM #90 tabs 12/24/24 01/27/25 01/23/25 spironolactone 25 1 tab PO QAM #90 tabs 0301/27/25 01/23/25 mg-hydrochlorothiazide 25 mg tablet acetaminophen 500 mg tablet 500 mg PO BID PRN Pain 01/27/25 01/27/25 Unknown ibuprofen 200 mg tablet 200 mg PO Q6H PRN Pain 01/27/25 01/27/25 Unknown losartan 50 mg tablet 50 mg PO QAM 01/27/25 01/27/25 01/23/25 metoprolol succinate 25 mg 25 mg PO HS 01/27/25 01/27/25 01/23/25 tablet,extended release 24 hr oxycodone 10 mg tablet 5 - 10 mg PO Q6H PRN Pain 01/27/25 01/27/25 Unknown ropinirole 0.25 mg tablet 0.5 mg PO HS 01/27/25 01/27/25 01/23/25 sumatriptan succinate 25 mg tablet 25 mg PO .DAILY/UD PRN Migraine 01/27/25 01/27/25 Unknown (Imitrex) Headache thyroid (pork) 60 mg tablet 60 mg PO HS 01/27/25 01/27/25 01/23/25 ([place] Thyroid) Active Medications Generic Name Dose Route Start Last Admin Trade Name Freq PRN Reason Stop Dose Admin Sodium Chloride 1,000 mls @ 80 mls/hr 01/26/25 22:15 01/26/25 22:47 Nss IV 01/27/25 23:14 80 mls/hr .[id number] LEANNA Administration Piperacillin Sod/Tazobactam Sod 4.5 gm in 100 mls @ 25 mls/hr 01/27/25 02:00 01/27/25 10:52 Zosyn IV 02/06/25 01:59 25 mls/hr Q8H LEANNA Administration Protocol Insulin Aspart 0 units 01/27/25 06:00 01/27/25 08:45 Insulin Aspart Per Unit Charge SC 02/26/25 05:59 Not Given Q6 LEANNA Morphine Sulfate 4 mg 01/26/25 22:03 01/26/25 22:45 Morphine Sulfate 4 Mg/Ml 1 Ml Carp\\Vial IV 02/09/25 22:02 4 mg Q3H PRN Administration Severe Pain (Scale 7, 8, 9,10) NPO Date Last Intake of Fluids: 01/26/25 Time Last Intake of Fluids: 18:00 Date Last Intake of Solids: 01/25/25 Time Last Intake of Solids: 20:00 Past Medical History Medical History Diabetes mellitus type 2, controlled NIDDM Osteoarthritis of knees, bilateral Lumbar stenosis with neurogenic claudication Hypothyroidism Hypercholesteremia Hx of non-Hodgkin's lymphoma (2004) s/p chemo/xrt (2004), subsequent prophylactic chemo (4263-3524) "Not active" per pt Degenerative spondylolisthesis Postmenopausal Hx of migraines last was approx. 9 months Primary hyperparathyroidism Hx of endometriosis Restless leg syndrome Sleep apnea no cpap - used in past/ can't tolerate Spinal stenosis GERD (gastroesophageal reflux disease) controlled, stable per pt CKD (chronic kidney disease) sees neph dr. cerna Arthritis Anxiety claustrophobia in MRI/CT scans Allergic rhinitis Hx of gout Seasonal allergies Asthma Allergy induced, stable-states has not needed rescue inhaler for several months Exercise / Class Metabolic Activity II 4-5 Yardwork/Stairs/Walk up hill Past Family History Family History Mother Arthritis Heart disease Father Heart disease Diabetes Hypertension Other No family history of adverse response to anesthesia No family history of bleeding disorder Denies family history of Ovarian cancer Breast cancer Colorectal cancer Past Surgical History Surgical History History of hysteroscopy (07/2023) S/P epidural steroid injection History of dilatation and curettage x3 History of esophagogastroduodenoscopy (EGD) History of colonoscopy [place] teeth extracted History of oral surgery (2011) Gum surgery for excessive bone growth (2011) History of appendectomy (2014) H/O abdominal surgery (2003) Exploratory surgery r/t non hodgkin's lymphoma (2003) Past Anesthesia History No Hx of Anesthesia Complications and No Family Hx of Anesthesia Complications History of PONV No Hx of PONV and No Hx of Motion Sickness Social History Smoking Status: Never smoker Do You Dip or Chew Tobacco: No Hx Alcohol Use: Yes alcohol intake frequency: holidays/special occasions only Hx Substance Use: No substance use type: does not use Physical Exam Vital Signs Last Vital Signs Temp 36.9 C 01/27/25 11:06 Pulse 88 01/27/25 11:06 Resp 18 03/25/25 11:06 BP 140/84 01/27/25 11:06 Pulse Ox 97 01/27/25 11:06 O2 Del Method Room Air 01/27/25 11:06 Constitutional + obese; no acute distress ENMT Mouth: + small oral opening; no dentition abnormality Thyromental Distance: > or= 3.5 Finger Breadths Mallampati Class: III Neck normal visual inspection Respiratory normal respiratory effort; no respiratory distress Auscultation: lungs clear to auscultation bilaterally Cardiovascular Rate/Rhythm: regular rate and regular rhythm Heart Sounds: no murmur Musculoskeletal Spine: normal cervical ROM Psychiatric Orientation: alert and oriented x 3 Testing Laboratory Results 01/27/25 07:41 01/27/25 07:41 PT 11.3 Seconds (9.0-12.0) 01/26/25 15:57 INR 1.0 (0.9-1.1) 01/26/25 15:57 Hemoglobin A1c 5.5 % (4.5-5.6) 01/27/25 07:41 Urine Color Dark Yellow 01/26/25 19:08 Urine Appearance Clear (Clear) 01/26/25 19:08 Urine pH 6.0 (4.5-7.5) 01/26/25 19:08 Ur Specific [place] > 1.045 (1.000-1.030) H 01/26/25 19:08 Urine Protein 1+ (Negative) H 01/26/25 19:08 Urine Glucose (UA) Negative (Negative) 01/26/25 19:08 Urine Ketones Trace (Negative) H 01/26/25 19:08 Urine Nitrite Positive (Negative) A 01/26/25 19:08 Ur Leukocyte Esterase 1+ (Negative) H 01/26/25 19:08 Urine WBC (Auto) 11-20 /hpf (0-5) H 01/26/25 19:08 Urine RBC (Auto) 0-2 /hpf (0-2) 01/26/25 19:08 U Hyaline Cast (Auto) 0-2 /lpf (0-2) 01/26/25 19:08 U Epithel Cells (Auto) 6-10 /hpf (0-2) H 01/26/25 19:08 Urine Bacteria (Auto) 1+ (None Seen) H 01/26/25 19:08 Blood Type O Negative 01/26/25 15:58 Antibody Screen NEGATIVE 01/26/25 15:58 01/27/25 01/27/25 11:42 08:41 POC Glucose 99 95 Day of Procedure Evaluation. Date of Surgery January 27, 2025 Height/Weight Height: 5 ft 4 in Weight: 103.2 kg Vital Signs Last Vital Signs Temp 36.9 C 01/27/25 11:06 Pulse 88 01/27/25 11:06 Resp 18 01/27/25 11:06 BP 140/84 01/27/25 11:06 Pulse Ox 97 01/27/25 11:06 O2 Del Method Room Air 01/27/25 11:06 Allergies Allergy/AdvReac Type Severity Reaction Status Date / Time atorvastatin [From Lipitor] AdvReac Intermediate Myalgias Verified 01/27/25 11:06 (see comments) simvastatin [From Zocor] AdvReac Intermediate Myalgias Verified 01/27/25 11:06 Kjcfpbw-KRR-QvP Reductase AdvReac Intermediate Myalgias Verified 01/27/25 11:06 Inhibitor [Aaiekrg-Piy-Yid Reductase Inhibitor] Medications Home Medications Medication Instructions Recorded Confirmed Last Taken cyclobenzaprine 10 mg tablet 10 mg PO TID PRN muscle spasm #90 06/19/23 01/27/25 Unknown tabs metformin 500 mg tablet 1,000 mg (2 x 500 mg) PO QAM #180 05/05/24 01/27/25 01/23/25 tabs allopurinol 300 mg tablet 300 mg PO QAM #90 tabs 08/27/24 01/27/25 01/23/25 gabapentin 300 mg capsule 600 mg (2 x 300 mg) PO TID #540 09/08/24 01/27/25 01/23/25 caps dapagliflozin propanediol 10 mg 10 mg PO QAM 11/06/24 01/27/25 01/23/25 tablet ezetimibe 10 mg tablet (Zetia) 10 mg PO HS 11/06/24 01/27/25 01/23/25 rabeprazole 20 mg tablet,delayed 20 mg PO HS 11/06/24 01/27/25 01/23/25 release (AcipHex) ropinirole 0.25 mg tablet 0.25 mg PO .EVENING MEAL 11/06/24 01/27/25 01/23/25 montelukast 10 mg tablet 10 mg PO QAM #90 tabs 12/24/24 01/27/25 01/23/25 spironolactone 25 1 tab PO QAM #90 tabs 01/21/25 01/27/25 01/23/25 mg-hydrochlorothiazide 25 mg tablet acetaminophen 500 mg tablet 500 mg PO BID PRN Pain 01/27/25 01/27/25 Unknown ibuprofen 200 mg tablet 200 mg PO Q6H PRN Pain 01/27/25 01/27/25 Unknown losartan 50 mg tablet 50 mg PO QAM 01/27/25 01/27/25 01/23/25 metoprolol succinate 25 mg 25 mg PO HS 01/27/25 01/27/25 01/23/25 tablet,extended release 24 hr oxycodone 10 mg tablet 5 - 10 mg PO Q6H PRN Pain 01/27/25 01/27/25 Unknown ropinirole 0.25 mg tablet 0.5 mg PO HS 01/27/25 01/27/25 01/23/25 sumatriptan succinate 25 mg tablet 25 mg PO .DAILY/UD PRN Migraine 01/27/25 01/27/25 Unknown (Imitrex) Headache thyroid (pork) 60 mg tablet 60 mg PO HS 01/27/25 01/27/25 01/23/25 ([place] Thyroid) Active Medications Generic Name Dose Route Start Last Admin Trade Name Freq PRN Reason Stop Dose Admin Sodium Chloride 1,000 mls @ 80 mls/hr 01/26/25 22:15 01/26/25 22:47 Nss IV 01/27/25 23:14 80 mls/hr .[id number] LEANNA Administration Piperacillin Sod/Tazobactam Sod 4.5 gm in 100 mls @ 25 mls/hr 01/27/25 02:00 01/27/25 10:52 Zosyn IV 02/06/25 01:59 25 mls/hr Q8H LEANNA Administration Protocol Insulin Aspart 0 units 01/27/25 06:00 01/27/25 08:45 Insulin Aspart Per Unit Charge SC 02/26/25 05:59 Not Given Q6 LEANNA Morphine Sulfate 4 mg 01/26/25 22:03 01/26/25 22:45 Morphine Sulfate 4 Mg/Ml 1 Ml Carp\\Vial IV 02/09/25 22:02 4 mg Q3H PRN Administration Severe Pain (Scale 7, 8, 9,10) Past Anesthesia History No Hx of Anesthesia Complications and No Family Hx of Anesthesia Complications History of PONV No Hx of PONV and No Hx of Motion Sickness NPO Date Last Intake of Fluids: 01/26/25 Time Last Intake of Fluids: 18:00 Date Last Intake of Solids: 01/25/25 Time Last Intake of Solids: 20:00 HCG & FBG Results 01/27/25 01/27/25 11:42 08:41 POC Glucose 99 95 Home Medications Home Medications Medication Instructions Recorded Confirmed Last Taken cyclobenzaprine 10 mg tablet 10 mg PO TID PRN muscle spasm #90 06/19/23 01/27/25 Unknown tabs metformin 500 mg tablet 1,000 mg (2 x 500 mg) PO QAM #180 05/05/24 01/27/25 01/23/25 tabs allopurinol 300 mg tablet 300 mg PO QAM #90 tabs 08/27/24 01/27/25 01/23/25 gabapentin 300 mg capsule 600 mg (2 x 300 mg) PO TID #540 09/08/24 01/27/25 01/23/25 caps dapagliflozin propanediol 10 mg 10 mg PO QAM 11/06/24 01/27/25 01/23/25 tablet ezetimibe 10 mg tablet (Zetia) 10 mg PO HS 11/06/24 01/27/25 01/23/25 rabeprazole 20 mg tablet,delayed 20 mg PO HS 11/06/24 01/27/25 01/23/25 release (AcipHex) ropinirole 0.25 mg tablet 0.25 mg PO .EVENING MEAL 11/06/24 01/27/25 01/23/25 montelukast 10 mg tablet 10 mg PO QAM #90 tabs 12/24/24 01/27/25 01/23/25 spironolactone 25 1 tab PO QAM #90 tabs 01/21/25 01/27/25 01/23/25 mg-hydrochlorothiazide 25 mg tablet acetaminophen 500 mg tablet 500 mg PO BID PRN Pain 01/27/25 01/27/25 Unknown ibuprofen 200 mg tablet 200 mg PO Q6H PRN Pain 01/27/25 01/27/25 Unknown losartan 50 mg tablet 50 mg PO QAM 01/27/25 01/27/25 01/23/25 metoprolol succinate 25 mg 25 mg PO HS 01/27/25 01/27/25 01/23/25 tablet,extended release 24 hr oxycodone 10 mg tablet 5 - 10 mg PO Q6H PRN Pain 01/27/25 01/27/25 Unknown ropinirole 0.25 mg tablet 0.5 mg PO HS 01/27/25 01/27/25 01/23/25 sumatriptan succinate 25 mg tablet 25 mg PO .DAILY/UD PRN Migraine 01/27/25 01/27/25 Unknown (Imitrex) Headache thyroid (pork) 60 mg tablet 60 mg PO HS 01/27/25 01/27/25 01/23/25 ([place] Thyroid) Active Medications Generic Name Dose Route Start Last Admin Trade Name Freq PRN Reason Stop Dose Admin Sodium Chloride 1,000 mls @ 80 mls/hr 01/26/25 22:15 01/26/25 22:47 Nss IV 01/27/25 23:14 80 mls/hr .[id number] LEANNA Administration Piperacillin Sod/Tazobactam Sod 4.5 gm in 100 mls @ 25 mls/hr 01/27/25 02:00 01/27/25 10:52 Zosyn IV 02/06/25 01:59 25 mls/hr Q8H LEANNA Administration Protocol Insulin Aspart 0 units 01/27/25 06:00 01/27/25 08:45 Insulin Aspart Per Unit Charge SC 02/26/25 05:59 Not Given Q6 LEANNA Morphine Sulfate 4 mg 01/26/25 22:03 01/26/25 22:45 Morphine Sulfate 4 Mg/Ml 1 Ml Carp\\Vial IV 02/09/25 22:02 4 mg Q3H PRN Administration Severe Pain (Scale 7, 8, 9,10) Exercise / Class Metabolic Activity Metabolic Activity: II 4-5 Yardwork/Stairs/Walk up hill Physical Exam Constitutional: + obese; no acute distress Mouth: + small oral opening; no dentition abnormality Thyromental Distance: > or= 3.5 Finger Breadths Mallampati Class: III Neck: + visual inspection normal Respiratory: + respiratory effort normal and + clear to auscultation bilaterally; no respiratory distress Cardiovascular: + regular rate and + regular rhythm; no murmur Musculoskeletal: no limited cervical ROM Psychiatric: + alert and + oriented x 3 ASA ASA3 Proposed Anesthesia Proposed Anesthesia: General Risk / Benefits Reviewed With: PT / POA / Parent / Guardian, Accepts Plan and Informed Consent Obtained
[2025-01-27] MEDS ORDERED: PROMETHAZINE HCL 6.25 MG in SODIUM CHLORIDE 0.9% 50 ML IV PRN (11:55)
[2025-01-27] MEDS ORDERED: ATROPINE SULFATE 0.1 MG/ML 10ML SYR IV PRN (11:55)
[2025-01-27] MEDS ORDERED: ePHEDrine sulfate 50 MG/ML AMP IV PRN (11:55)
[2025-01-27] MEDS ORDERED: DEXAMETHASONE SOD INJ 4 MG/ML VIAL ONE (12:24)
[2025-01-27] MEDS ORDERED: ONDANSETRON INJ 2 MG/ML 2 ML VIAL ONE (13:01)
[2025-01-27] MEDS ORDERED: SUGAMMADEX SODIUM 200 MG/2 ML VIAL IV ONE (13:01)
[2025-01-27] MEDS: FLOSEAL HEMOSTATIC MATRIX 10ML TOP ONE (13:17)
[2025-01-27] MEDS: BUPIVACAINE/EPINEPHRINE 0.25% 1:200,000 30 ML VIAL ONE (13:26)
--- NOTE | 2025-01-27 13:29 | Post Operative Brief Note ---
PG Immediate Post Op with CF Date of Surgery January 27, 2025 Pre & Post Diagnosis Operation Date: 01/27/25 07:00 Pre-Op Diagnosis: Acute Cholecystitis Post-Op Diagnosis: Acute Cholecystitis I identified the patient and participated in the time-out.: Yes Procedure Operation Date: 01/27/25 07:00 Actual Procedures p Laparoscopic Cholecystectomy (Not Applicable) - Holger Pritchett DO Surgeon Holger Pritchett DO Cooker Pie Filling Esteal TEE Estimated Blood Loss 20 Findings See Below Acutely inflamed, dilated gallbladder with thickened wall consistent with acute cholecystitis Specimens Specimen Description: A. Gallbladder Anesthesia Type General Complications none Disposition Disposition: Recovery Room
--- NOTE | 2025-01-27 13:32 | Operative Report ---
PG Post Operative Report Pre & Post Diagnosis Operation Date: 01/27/25 07:00 Pre-Op Diagnosis: Acute Cholecystitis Post-Op Diagnosis: Acute Cholecystitis I identified the patient and participated in the time-out.: Yes Procedure Operation Date: 01/27/25 07:00 Actual Procedures p Laparoscopic Cholecystectomy (Not Applicable) - Holger Pritchett DO Surgeon Holger Pritchett DO Mechanical Apprentice Estela TEE Estimated Blood Loss 20 Findings See Below Acutely inflamed, dilated gallbladder with thickened wall consistent with acute cholecystitis Fluids see anesthesia record Specimens Gallbladder to pathology Drains None Anesthesia Type General Complications none Disposition Disposition: Recovery Room Indications 64-year-old female with acute cholecystitis Description of Procedure The patient was brought to the operating room and placed in the supine position with both arms extended. At this time she underwent general endotracheal anesthesia without any problems. She was given appropriate pre-operative antibiotics. Her abdomen prepped and draped in the usual sterile fashion. A timeout was called, the procedure was verified as Laparoscopic cholecystectomy, possible open, possible intra-operative cholangiogram. Surgical, nursing and anesthesia teams agreed and the procedure was begun. After injection of 0.25% Marcaine with epinephrine, a supraumbilical incision was made and carried down to the fascia using S-retractors. The abdominal wall was then elevated with towel clamps and abdomen entered using the Veress needle confirming position using the saline drop test. Pneumoperitoneum was established. 5mm trocar was placed. Laparoscope was introduced. No injury from entry into the abdomen was visualized after inspection of the abdomen. Three further ports were placed under direct visualization. One 11mm in the subxiphoid region and two 5mm in the RUQ. At this time the abdomen was inspected and the gallbladder identified. The gallbladder itself was thickened, edematous and severely distended consistent with acute cholecystitis. The gallbladder was decompressed with a needle in order to manipulate it easier. The gallbladder fundus was grasped and retracted cephalad. The gallbladder infundibulum was then grasped and retracted laterally. The cystic duct and cystic artery were then identified and skeletonized. The critical view of safety was obtained. They were both then clipped twice proximally and once distally and then divided using scissors. The gallbladder was then taken off of the liver bed using electrocautery and placed in an endocatch bag and removed from the subxiphoid port. The liver bed was then inspected and no bile leak or bleeding was evident. 10 mL of Floseal hemostatic agent was placed in the gallbladder fossa. The subxiphoid port was then closed using 0-Vicryl using the suture passer. The trocars were then removed under direct visualization and no bleeding was present. Abdomen was desufflated. The skin was then closed using 4-0 Monocryl in a subcuticular fashion. Surgical glue was applied. Needle and sponge counts were correct x 2. At this time the patient was awoken from anesthesia and extubated having remained stable throughout the entire case. The patient was then transported to PACU in stable condition. The nurse practitioner was present scrubbed for the entire case. She was essential in positioning, prepping and draping the patient, retraction exposure, driving the laparoscope, closure of the incisions and placement of the dressings. I attest to the content of the Intraoperative Record and any orders documented therein. Any exceptions are noted below.
[2025-01-27] MEDS: HYDROmorphone INJ 2 MG/ML SYR/VIAL IV PRN (13:53)
[2025-01-27] MEDS ORDERED: oxyCODONE HCL IR 5 MG TAB (IMMEDIATE RELEASE) PO PRN ×2 (14:45)
[2025-01-27] MEDS: MoRPHine SULFATE 2 MG/ML CARP IV PRN (18:04)
[2025-01-27] MEDS: ONDANSETRON INJ 2 MG/ML 2 ML VIAL IV PRN (18:40)
[2025-01-27] MEDS ORDERED: Nursing to Pharmacy Communication SCH (19:15)
[2025-01-27] MEDS: PANTOprazole 40 MG/10 ML SYR IV SCH (20:15)
--- NOTE | 2025-01-27 22:59 | Hospitalist Progress Note ---
Date of Service January 27, 2025 Assessment & Plan (1) Cholecystitis: (2) Acute UTI (urinary tract infection): (3) Acute hypokalemia: (4) Chronic pain syndrome: (5) Pancreatitis due to biliary obstruction: Plan The patient is a 64-year-old female with past medical history including acute blood loss anemia, history of lumbar spinal fusion for decompression of spinal cord, hyperlipidemia, hypertension, LVH, hypothyroidism, primary hyperparathyroidism, CKD stage III yea, endometrial mass, anxiety, GERD, hirsutism, RLS, SOBEIDA, and vitamin D deficiency. The patient presents to the emergency department with complaints of abdominal pain that initially began in the right lower abdomen about 4 days ago, but now is more toward right upper quadrant and epigastric area. This was accompanied by nausea, without vomiting or diarrhea. With the worsening of her symptoms over the past 3 days, she presented to the ED for evaluation. She denies any fevers or chills, chest pain or shortness of breath. She reports that her symptoms are similar to her history of ruptured appendix in the past. Workup in the emergency department included abnormal liver enzymes, elevated lipase, and CT angiography abdomen and pelvis suggesting acute cholecystitis. Gallbladder ultrasound suggest chronic calculus cholecystitis. Patient was referred for evaluation and treatment to the [facility] service. The patient was also evaluated by general surgery in the emergency department, who requested admission to [facility] service. MRI was not available in the emergency department this evening, due to the MRI unit being in need of repair. #Acute/chronic calculus cholecystitis/pancreatitis secondary to biliary obstruction- S/P cholecystectomy. by surgery. Patient is tolerating proceure. Vital signs are normal. will recheck liver function test on 01/28 Electrolyte disturbances/dehydration- Status post 1 L normal saline boluses x 2 from the ED, also received morphine 4 mg IV, Zofran 4 mg IV, and Zosyn 4.5 g IV replaced will monitor. Diabetes mellitus- Hold metformin and dapagliflozin Placed on Accu-Cheks with NovoLog SSI Chronic medical conditions: Gout-hold allopurinol Hyperlipidemia-hold Zetia Hypertension-hold metoprolol succinate, spironolactone-HCTZ, losartan GERD-change Aciphex p.o. to pantoprazole IV Chronic pain syndrome/peripheral neuropathy/RLS-holding cyclobenzaprine, gabapentin, ibuprofen, oxycodone, ropinirole. Placed on morphine IV as needed as noted above Hypothyroidism-Farrukh Fong Thyroid Admission and Anticipated Discharge Date Admission Date: January 26, 2025 Subjective Patient reports tolerating procedure. She has no new complaints. Physical Exam Physical Exam: The patient is awake, alert and oriented 3, well developed and well nourished, normocephalic and atraumatic, lying in bed and in no acute distress. HEENT--PERRL, EOMI Neck--supple. No JVD. No bruits. Thyroid normal, trachea midline, no adenopathy. Heart--normal S1 and S2. No murmurs, rubs or gallops. Lungs--clear bilaterally, no respiratory distress, no accessory muscle use. Abdomen--nondistended Extremities--no cyanosis or clubbing. No edema. Results & Data Results & Data Vital Signs (Past 12 Hours) Vital Signs Temp Pulse Pulse Pulse Resp BP Pulse Ox 01/27/25 20:36 36.6 C 75 20 138/84 92 01/27/25 17:38 36.5 C 84 18 154/90 H 96 01/27/25 16:37 36.4 C L 84 18 152/89 H 94 01/27/25 15:35 36.6 C 94 H 18 150/87 H 95 01/27/25 15:04 36.5 C 89 16 143/84 H 94 01/27/25 14:35 36.8 C 98 H 16 149/82 H 95 01/27/25 14:30 96 H 16 141/81 H 94 01/27/25 14:20 36.1 C L 95 H 14 143/85 H 95 01/27/25 14:10 92 H 17 148/88 H 94 01/27/25 14:00 93 H 18 150/91 H 94 01/27/25 13:50 98 H 22 147/87 H 97 01/27/25 13:41 36 C L 103 H 19 169/93 H 94 01/27/25 11:06 36.9 C 88 18 140/84 97 O2 Del Method O2 Flow Rate 01/27/25 20:36 Room Air 01/27/25 17:38 Nasal Cannula 2 01/27/25 16:37 Nasal Cannula 2 01/27/25 15:35 Nasal Cannula 2 01/27/25 15:04 Nasal Cannula 2 01/27/25 14:35 Nasal Cannula 2 01/27/25 14:30 Nasal Cannula 2 01/27/25 14:20 Nasal Cannula 2 01/27/25 14:10 Nasal Cannula 2 01/27/25 14:00 Oxymask 5 01/27/25 13:50 Oxymask 11 01/27/25 13:41 Oxymask 11 01/27/25 11:06 Room Air PG Care Time/CCT Total # of Minutes Spent Total Time Spent with Patient: Total time spent is greater than 50% in coordination of care (as documented) at patient's floor/unit and/or counseling patient: Coding Level of Care Code 80128 SUB INP/OBS CARE MIN Diagnoses Cholecystitis K81.9 Acute UTI (urinary tract infection) N39.0 Acute hypokalemia E87.6 Chronic pain syndrome G89.4 Pancreatitis due to biliary obstruction K85.90; K83.1
[2025-01-28 02:48] VITALS: O2SAT 95
--- NOTE | 2025-01-28 07:35 | Surgery Progress Note ---
Date of Service January 28, 2025 Assessment & Plan (1) Cholecystitis: Plan: POD#1 laparoscopic cholecystectomy labs are pending this AM. vital signs are stable tolerating clears, will allow patient to have diet as tolerates pain controlled, incisions c/d/i (may remove tape/gauze dressing tomorrow and steri strips are underneath to be left in place) if diet tolerated and labs okay she may be discharged from our standpoint will need f/u in the office with dr. courtney in 2 weeks time Admission and Anticipated Discharge Date Admission Date: January 26, 2025 Supervising Physician Co-Signing Physician Notes Postop day 1 lap broderick She is doing well overall with minimal pain LFTs continue to downtrend She is tolerating a regular diet She is stable for discharge from a surgical standpoint She does not need antibiotics once discharged Surgery will sign off at this time, please call with any questions or concerns Subjective Patient reports feeling a little sore, otherwise doing well. No nausea/vomiting. Tolerating clears. Slept well last night. Physical Exam Physical Exam: awake/alert, no distress Gastrointestinal (Abdomen): Inspection/Auscultation: + abdominal surgical incision (surgical dressings c/d/i) Percussion/Palpation: + abdomen tender (expected post op discomfort) and abdomen soft Results & Data Vital Signs (Past 12 Hours) Vital Signs Temp Pulse Resp BP BP Pulse Ox O2 Del Method 01/28/25 02:47 97.7 F 69 18 138/79 95 Room Air 01/27/25 23:34 97.7 F 73 18 145/85 H 93 Room Air 01/27/25 20:36 97.9 F 75 20 138/84 92 Room Air PG Care Time/CCT Total # of Minutes Spent Total Time Spent with Patient: Total time spent is greater than 50% in coordination of care (as documented) at patient's floor/unit and/or counseling patient: Coding Level of Care Code 32473 Post Operative Follow-Up Diagnoses Cholecystitis K81.9
[2025-01-28 07:50] VITALS: BP 148/87; PULSE 66; RESP 17; TEMP 98.4
[2025-01-28 08:16] LABS: Basophils # (auto) 0.02 K/uL (0.00-0.20); Basophils % (auto) 0.2 %; Eosinophils # (auto) 0.06 K/uL (0.00-0.50); Eosinophils % (auto) 0.7 %; Hematocrit (blood only) 29.1 % (37.0-47.0); Hemoglobin 9.6 g/dl (12.0-16.0); Immature Granulocytes # (auto) 0.02 K/uL (0.01-0.20); Immature Granulocytes % (auto) 0.2 %; Lymphocytes # (auto) 0.67 K/uL (1.20-3.40); Lymphocytes % (auto) 7.7 %; Mean Corpuscular Hemoglobin 29.3 pg (25.0-34.0); Mean Corpuscular Volume 88.7 fL (80.0-100.0); Mean Platelet Volume 10.8 fL (9.4-12.4); Monocytes # (auto) 0.69 K/uL (0.11-0.59); Monocytes % (auto) 7.9 %; Neutrophils # (auto) 7.24 K/uL (1.40-6.50); Neutrophils % (auto) 83.3 %; Platelet Count 255 K/uL (130-400); RDW Coefficient of Variation 13.2 % (11.5-14.5); RDW Standard Deviation 43.5 fL (36.4-46.3); Red Blood Count 3.28 M/uL (4.20-5.40)
[2025-01-28] MEDS: ACETAMINOPHEN 325 MG TAB PO PRN (08:24)
[2025-01-28 08:52] LABS: Albumin Globulin Ratio 1.3 (0.9-2); Albumin Level 3.3 gm/dl (3.4-5.0); BUN Creatinine Ratio 11.8 (10-20); Calcium 9.3 mg/dl (8.6-10.3); Creatinine Clr Calc Pharmacy 58.8 ml/min; Globulin 2.6 gm/dl (2.5-4.0); Magnesium 1.9 mg/dl (1.7-2.4); Potassium 3.8 mmol/L (3.5-5.1); Total Protein 5.9 gm/dl (6.0-8.3)
--- NOTE | 2025-01-28 11:19 | Discharge Summary ---
Discharge Summary Date of Service January 28, 2025 Principal Dx & Hospital Course #1 = Principal Diagnosis (1) Cholecystitis: (2) Acute UTI (urinary tract infection): (3) Acute hypokalemia: (4) Chronic pain syndrome: (5) Pancreatitis due to biliary obstruction: Plan The patient is a 64-year-old female with past medical history including acute blood loss anemia, history of lumbar spinal fusion for decompression of spinal cord, hyperlipidemia, hypertension, LVH, hypothyroidism, primary hyperparathyroidism, CKD stage III yea, endometrial mass, anxiety, GERD, hirsutism, RLS, SOBEIDA, and vitamin D deficiency. The patient presents to the emergency department with complaints of abdominal pain that initially began in the right lower abdomen about 4 days ago, but now is more toward right upper quadrant and epigastric area. This was accompanied by nausea, without vomiting or diarrhea. With the worsening of her symptoms over the past 3 days, she presented to the ED for evaluation. She denies any fevers or chills, chest pain or shortness of breath. She reports that her symptoms are similar to her history of ruptured appendix in the past. Workup in the emergency department included abnormal liver enzymes, elevated lipase, and CT angiography abdomen and pelvis suggesting acute cholecystitis. Gallbladder ultrasound suggest chronic calculus cholecystitis. Patient was referred for evaluation and treatment to the [facility] service. The patient was also evaluated by general surgery in the emergency department, who requested admission to [facility] service. MRI was not available in the emergency department this evening, due to the MRI unit being in need of repair. #Acute/chronic calculus cholecystitis/pancreatitis secondary to biliary obstruction- *Sepsis due to cholecystitis, pancreatitis due to biliary obstruction S/P cholecystectomy. by surgery. Patient is tolerating proceure. Vital signs are normal. will recheck liver function test on 01/28 Electrolyte disturbances/dehydration- Status post 1 L normal saline boluses x 2 from the ED, also received morphine 4 mg IV, Zofran 4 mg IV, and Zosyn 4.5 g IV replaced will monitor. Diabetes mellitus- Hold metformin and dapagliflozin Placed on Accu-Cheks with NovoLog SSI Chronic medical conditions: Gout-hold allopurinol Hyperlipidemia-hold Zetia Hypertension-hold metoprolol succinate, spironolactone-HCTZ, losartan GERD-change Aciphex p.o. to pantoprazole IV Chronic pain syndrome/peripheral neuropathy/RLS-holding cyclobenzaprine, gabapentin, ibuprofen, oxycodone, ropinirole. Placed on morphine IV as needed as noted above Hypothyroidism-Holding Maypearl Thyroid Admission HPI Per Admitting Provider The patient is a 64-year-old female with past medical history including acute blood loss anemia, history of lumbar spinal fusion for decompression of spinal cord, hyperlipidemia, hypertension, LVH, hypothyroidism, primary hyperparathyroidism, CKD stage III yea, endometrial mass, anxiety, GERD, hirsutism, RLS, SOBEIDA, and vitamin D deficiency. The patient presents to the emergency department with complaints of abdominal pain that initially began in the right lower abdomen about 4 days ago, but now is more toward right upper quadrant and epigastric area. This was accompanied by nausea, without vomiting or diarrhea. With the worsening of her symptoms over the past 3 days, she presented to the ED for evaluation. She denies any fevers or chills, chest pain or shortness of breath. She reports that her symptoms are similar to her history of ruptured appendix in the past. Workup in the emergency department included abnormal liver enzymes, elevated lipase, and CT angiography abdomen and pelvis suggesting acute cholecystitis. Gallbladder ultrasound suggest chronic calculus cholecystitis. Patient was referred for evaluation and treatment to the [facility] Hospital[facility] service. Discharge Exam The patient is awake, alert and oriented 3, well developed and well nourished, normocephalic and atraumatic, lying in bed and in no acute distress. HEENT--PERRL, EOMI Neck--supple. No JVD. No bruits. Thyroid normal, trachea midline, no adenopathy. Heart--normal S1 and S2. No murmurs, rubs or gallops. Lungs--clear bilaterally, no respiratory distress, no accessory muscle use. Abdomen--nondistended Extremities--no cyanosis or clubbing. No edema. Discharge Plan Discharge Items Patient Disposition: Home - Self-Care Reason For Visit: ACUTE CHOLECYSTITIS Discharge Diagnosis: laparoscopic cholecystectomy Activity: As commented below Lifting: No more than 25 pounds Bathing Comment: you can shower. No soaking in pools/bath for 2 weeks Exercise/Sports: Wait until after follow-up appointment Driving/Machine Use: no driving if taking narcotic pain medication Non-emergency contact: Surgeon Call non-emergency contact if: your symptoms worsen, your pain is worsening, you have a fever, your temperature is above 101.5, your wound has increased redness, your wound has increased drainage and your wound pain has increased Follow-up/Referrals: Isak Bruce MD [Primary Care Provider] - 02/04/25 11:00 am Holger Pritchett DO [Physician] - 02/12/25 9:30 am (please call to schedule follow up in the office within 2 weeks ) Diet: Low Fat Addtl Attending Provider Instructions: SPECIAL CARE INSTRUCTIONS: * You may remove your outer surgical dressings on 01/29. You will have small white bandages on underneath that are over your incisions called steri strips. You may shower with these on. They will tend to fall off on their own within 7- 10 days. Cover incisions and change daily for comfort/drainage. * You may shower.. NO soaking in pools or baths for 2 weeks * No lifting greater than 10lbs. No strenuous exercise until cleared by surgeon. Light walking is accepted. * No driving while taking narcotic pain medication; wait at least 3 days * No drinking alcohol while taking narcotic pain medication * May use Ibuprofen/Tylenol over the counter for pain as tolerated. Do not exceed 3grams of Tylenol per 24 hours * Expect some swelling and bruising. * Diet- you may resume your regular diet Call your doctor if: * Temperature above 101 degrees, nausea/vomiting, fever/chills * Pain not relieved by pain medicine ordered * There is increased drainage or redness from any incision * You have any unanswered questions or concerns [phone]. FOLLOW UP VISIT: If not already scheduled, please call the office for a follow-up visit. Office Pending Studies at Discharge: Yes Studies:: surgical pathology Stand-Alone Forms: My [facility] [place], Smoking Cessation Medications and DC Order Prescriptions: Continued metformin 500 mg tablet 1,000 mg PO QAM Qty: 180 3RF allopurinol 300 mg tablet 300 mg PO QAM Qty: 90 3RF gabapentin 300 mg capsule 600 mg PO TID Qty: 540 1RF montelukast 10 mg tablet 10 mg PO QAM Qty: 90 3RF spironolacton-hydrochlorothiaz 25-25 mg tablet 1 tab PO QAM Qty: 90 3RF cyclobenzaprine 10 mg tablet 10 mg PO TID PRN (Reason: muscle spasm) Qty: 90 5RF rabeprazole [AcipHex] 20 mg tablet,delayed release (DR/EC) 20 mg PO HS ropinirole 0.25 mg tablet 0.25 mg PO .EVENING MEAL Rx Instructions: 0.25 mg PO dinner and 2 tablets po in evening ; ezetimibe [Zetia] 10 mg tablet 10 mg PO HS dapagliflozin propanediol 10 mg tablet 10 mg PO QAM losartan 50 mg tablet 50 mg PO QAM ropinirole 0.25 mg tablet 0.5 mg PO HS metoprolol succinate 25 mg tablet extended release 24 hr 25 mg PO HS thyroid (pork) [Maypearl Thyroid] 60 mg Tablet 60 mg PO HS ibuprofen 200 mg Tablet 200 mg PO Q6H PRN (Reason: Pain) sumatriptan succinate [Imitrex] 25 mg Tablet 25 mg PO .DAILY/UD PRN (Reason: Migraine Headache) oxycodone 10 mg tablet 5 - 10 mg PO Q6H PRN (Reason: Pain) acetaminophen [Tylenol Ex Str Rapid Release] 500 mg Tablet 500 mg PO BID PRN (Reason: Pain) Discharge Orders: Discharge Order (Routine); Ordered 01/28/25 Ordered By: Sebastian Thomason Admission Data Admit Date/Time: 01/26/25 22:40 Attending Provider: Sebastian Thomason Admit Provider: Aaron Dickerson Primary Care Provider: Isak Bruce Other Providers: Aaron Dickerson Hospital Stay Data Consultations 01/26/25 20:14 ED Decision to Admit Stat Procedures Performed Operation Date: 01/27/25 07:00 Actual Procedures p Laparoscopic Cholecystectomy (Not Applicable) - Holger Pritchett, DO Diagnostic Imagining Performed 01/26/25 15:51 CTA abdomen pelvis w con [CT angio abdomen pelvis w con] Stat 01/26/25 16:33 US gallbladder Stat Pending Results Patient Have Any Pending Studies at Discharge: Yes Discharge Instructions Given to Patient (Per Discharging Provider) SPECIAL CARE INSTRUCTIONS: * You may remove your outer surgical dressings on 01/29. You will have small white bandages on underneath that are over your incisions called steri strips. You may shower with these on. They will tend to fall off on their own within 7- 10 days. Cover incisions and change daily for comfort/drainage. * You may shower.. NO soaking in pools or baths for 2 weeks * No lifting greater than 10lbs. No strenuous exercise until cleared by surgeon. Light walking is accepted. * No driving while taking narcotic pain medication; wait at least 3 days * No drinking alcohol while taking narcotic pain medication * May use Ibuprofen/Tylenol over the counter for pain as tolerated. Do not exceed 3grams of Tylenol per 24 hours * Expect some swelling and bruising. * Diet- you may resume your regular diet Call your doctor if: * Temperature above 101 degrees, nausea/vomiting, fever/chills * Pain not relieved by pain medicine ordered * There is increased drainage or redness from any incision * You have any unanswered questions or concerns [phone]. FOLLOW UP VISIT: If not already scheduled, please call the office for a follow-up visit. Office Coding Diagnoses Cholecystitis K81.9 Acute UTI (urinary tract infection) N39.0 Acute hypokalemia E87.6 Chronic pain syndrome G89.4 Pancreatitis due to biliary obstruction K85.90; K83.1
--- NOTE | 2025-01-30 13:57 | Anesthesiology Progress Note ---
Date of Service January 28, 2025 Anesthesia Post Procedure Pain Intensity Abdomen: Pain Intensity: 0 Transfer of Care Handoff Completed per policy Notes Mental Status: alert / awake / arousable and participated in evaluation Nausea / Vomiting: adequately controlled Pain: adequately controlled Airway Patency, RR, SpO2: stable & adequate BP & HR: stable & adequate Hydration State: stable & adequate Anesthetic Complications: no major complications apparent and Pt Satisfied with anesthetic care
== END 2025-01-28 12:04 | disposition home or self-care (01) | DRG 853 ==
LOC: ED 15:37 → SUATTDRO 22:40 → EDINP 22:40 → 3N 01-27 14:37